=== PATIENT | female | born 1955 | race Caucasian/White ===

== ENCOUNTER → 2018-09-02 | Outpatient (CLI) | payer MEDICARE, MEDICAID, SELFPAY ==
[2017-02-25 20:56] VITALS: BMI 34.9
== END | disposition home or self-care (01) ==
LOC: LABSPEC 16:49
PROVIDERS: Family Provider Internal Medicine; PCP Internal Medicine
DX: R82.998 Other abnormal findings in urine (principal)
CPT/HCPCS: 87077; 87086; 87088; 87186

== ENCOUNTER → 2018-11-25 16:46 | Outpatient (CLI) | payer MEDICARE, MEDICAID, SELFPAY | PROVIDERS: Family Provider Internal Medicine; PCP Internal Medicine; Visit Provider Nurse Practitioner Adult Health | DX: R30.0 Dysuria (principal) | CPT/HCPCS: 87086; 87088 ==

== ENCOUNTER → 2018-12-13 13:04 | Outpatient (CLI) | payer MEDICARE, MEDICAID, SELFPAY ==
--- NOTE | 2018-12-13 13:00 | SP.MBSS_ITS ---
PRIMARY / SECONDARY DIAGNOSIS: Dysphagia REFERRING PHYSICIAN: Dr. Robertson CURRENT DIET: Soft chopped textures/thin liquids by straw DENTITION: natural/present MENTAL STATUS: able to sufficiently participate in MBS RESPIRATORY STATUS: oxygenating on room air PREVIOUS MODIFIED BARIUM SWALLOW STUDY: 05/15/2015 Mild oropharyngeal and mild pharyngeal dysphagia; Regular - soft textures/thin liquids, liquids by straw only, swallow 2x for every sip, seated upright in bed and/or chair w/ hips flexed at a 90 degrees for all food/liquid/medication intake REASON FOR REFERRAL: Further assessment of swallow function under fluoroscopy was recommended MEDICAL HISTORY: Cerebral palsy, epilepsy, osteopenia/osteoporosis, gastroesophageal reflux, hiatal hernia, perforated appendix requiring hospitalization, breast cyst, vitamin D deficiency, abnormal gait, hx pneumonia, hx silent aspiration. STUDY FINDINGS Patient participated in a Modified Barium Swallow (MBS) study on 12/10/2018. Dr. Camarillo was the radiologist present for this evaluation. This study was recorded in the lateral view and images were sent to PACs for storage. The following consistencies were presented to this patient for analysis of oropharyngeal swallow function: thin liquid, nectar thickened liquid, honey thickened liquid, pudding and a regular texture cookie. Results of the MBS are as follows: PENETRATION / ASPIRATION SCALE (CUBA): 1 = does not enter airway 2 = enters airway/above vocal folds/ejected 3 = enters airway/above vocal folds/not ejected 4 = enters airway/contacts vocal folds/ejected 5 = enters airway/contacts vocal folds/not ejected 6 = enters airway/below vocal folds/ejected 7 = enters airway/below vocal folds/not ejected despite effort 8 = enters airway/below vocal folds/no effort PENETRATION / ASPIRATION SCALE (SCORE): 1. Thin liquid, straw (large volume): 1 2. Thin liquid, straw (large volume): 2 3. Thin liquid, small sip by straw: 1 4. Puddin 5. Cookie: 1 6. Thin liquid, straw (large volume): [address] [place] thickened liquid, straw (large volume): 1 8. Thin liquid, small sip by cup: 1 IMPRESSION ORAL PHASE CHARACTERIZED BY: LABIAL SEAL: interlabial escape, no progression to anterior lip TONGUE CONTROL DURING BOLUS MANIPULATION: posterior escape of less than half of bolus BOLUS PREPARATION / MASTICATION: slow prolonged and disorganized chewing/mashing with complete recollection BOLUS TRANSPORT / LINGUAL MOTION: brisk tongue motion ORAL RESIDUE: residue collection on oral structures; cleared independently w/ second swallow PHARYNGEAL PHASE CHARACTERIZED BY: INITIATION OF PHARYNGEAL SWALLOW: bolus head at posterior laryngeal surface of epiglottis at first hyoid excursion SOFT PALATE ELEVATION: no bolus between soft palate and pharyngeal wall LARYNGEAL ELEVATION: partial superior movement of thyroid cartilage/partial approximation of arytenoids cartilage to epiglottic petiole ANTERIOR HYOID EXCURSION: partial anterior movement EPIGLOTTIC MOVEMENT: partial epiglottic inversion LARYNGEAL VESTIBULE CLOSURE AT HEIGHT OF SWALLOW: complete laryngeal vestibule closure with no air/contrast in laryngeal vestibule PHARYNGEAL STRIPPING WAVE: pharyngeal stripping wave present / complete PHARYNGOESOPHAGEAL SEGMENT OPENING: complete distension and complete duration with no obstruction of flow TONGUE BASE RETRACTION: trace column of contrast between tongue base and posterior pharyngeal wall PHARYNGEAL RESIDUE: trace residue within or on pharyngeal structures ESOPHAGEAL PHASE CHARACTERIZED BY: ? ESOPHAGEAL BOLUS CLEARANCE IN THE UPRIGHT POSITION: esophageal retention EFFECTS OF TREATMENT STRATEGIES ATTEMPTED LIQUIDS BY STRAW: effective REDUCED LIQUID BOLUS VOLUME: effective INTERPRETATION OF RESULTS Patient presents with mild to moderate oral and oropharyngeal dysphagia (R13.11, R13.12) secondary to cerebral palsy. Intake complicated by involuntary muscle movements. Oral phase marked by disorganized and prolonged mastication of solids. Mild oral residue retention post deglutition. Independently cleared residue sufficiently w/ a spontaneously initiated additional swallow. Oral discoordination noted w/ premature pharyngeal bolus entry of liquids. Pharyngeal phase marked by suboptimal bolus location upon swallow onset w/ liquids contributing to laryngeal vestibule penetration before/during the swallow, above the vocal folds w/ complete ejection w/ swallow completion. Penetration ameliorated with bolus volume adjustments small sips by cup/straw. Mild reduction in anterior hyoid movement resulting in insufficient epiglottic inversion w/ trace contrast retention post deglutition. Esophageal phase marked by trace contrast retention below the PES. RECOMMENDATIONS DIET TEXTURE RECOMMENDED: regular soft textures/thin liquids?w/ avoidance of mixed consistencies (soup/cereal) and solid textures that release liquids (moist, juicy fruit - watermelon, oranges) COMPENSATORY STRATEGIES RECOMMENDED: all liquids by straw; small sips; follow solids w/ liquid wash as needed; small bites/cut solids into bite sized pieces as needed; seated upright at 90 degrees for all meals, medications and liquid intake; use wedge pillow/pillows to position upright during intake; remain upright for 30-60 minutes after intake (GERD precautions); medications crushed with applesauce NEED FOR ADDITIONAL DYSPHAGIA INTERVENTION: No further skilled speech-language intervention warranted as swallow function is essentially unchanged since prior MBS in 2016 w/ patient and caregiver demonstrating sufficient comprehension of all recommendations and compensatory strategies recommended. ADDITIONAL COMMENTS/RECOMMENDATIONS: Results and recommendations were discussed with the Patient & caregiver immediately following MBS completion w/ both verbalizing understanding and agreement with all recommendations and education provided. IMAGE COUNT: [id number]? Anusha Anguiano M.A., [facility] [employer] CUT OFF OPERATOR Speech Language Pathologist [facility] [address] [place] [address] [email or web address] [phone]
--- NOTE | 2018-12-13 13:10 | RAD_ITS ---
STUDY: SWALLOWING STUDY REASON FOR EXAM: Female, 63 years old. Dysphagia. TECHNIQUE: The examination was performed with Speech Pathology in attendance. Under fluoroscopic observation, the patient ingested thin barium, thick barium, barium pudding, and barium coated cracker. FLUOROSCOPY TIME: 1:46 minutes/seconds. 1661 fluoroscopic images were obtained. RADIOLOGIST INVOLVEMENT: Radiologist was present and providing direct supervision. COMPARISON: Comparison is made with prior study dated May 15, 2015. FINDINGS: The following was observed during swallowing of the various mixtures of barium: Thin Barium: There was no evidence of aspiration or laryngeal penetration. Thick Barium: There was no evidence of aspiration or laryngeal penetration. Barium Pudding: There was no evidence of aspiration or laryngeal penetration. Barium Coated Cracker: There was no evidence of aspiration or laryngeal penetration. RAD/Swallowing Function w/Video IMPRESSION: Normal tailored barium swallow study. No evidence of increased risk for aspiration. The swallow study findings were discussed with the patient by the speech pathologist at the conclusion of the examination. Please see speech pathology report for more information and recommendations. The procedure was performed by under the direct supervision of Electronically Signed: Reilly Camarillo, at 14:03 EST , Service support ,
== END ==
PROVIDERS: Family Provider Internal Medicine; PCP Internal Medicine; Referring Provider Internal Medicine; Visit Provider Internal Medicine
DX: R13.10 Dysphagia, unspecified (principal)
CPT/HCPCS: 74230; 92611

== ENCOUNTER → 2019-08-01 | Outpatient (CLI) | payer MEDICARE, MEDICAID, SELFPAY ==
[2019-08-01 08:25] LABS: Hematocrit 35.5 % (37-47); Hemoglobin 11.6 g/dL (12.0-15.0); Mean Corp Hgb Conc 32.7 g/dL (32-36); Mean Corpuscular Hgb 29.3 pg (27.0-32.0); Mean Corpuscular Volume 89.6 fL (81-99); Mean Platelet Vol. 11.2 fl (6.2-12.0); Platelet Count 247 K/mm3 (150-450); RBC Distribution Width CV 14.1 % (11.6-14.6); Red Blood Count 3.96 M/mm3 (4.2-5.4); White Blood Count 7.2 K/mm3 (4.4-11.0)
[2019-08-01 08:37] LABS: ALB/GLOB Ratio 0.9 RATIO (0.9-2.4); AST(SGOT) 12 U/L (15-37); Alanine Aminotransfer ALT/SGPT 18 U/L (13-56); Albumin, Serum 2.8 g/dL (3.2-5.0); Alkaline Phosphatase 87 U/L (45-117); Anion Gap 4 (5-15); BUN 23 mg/dL (7-18); BUN/Creat Ratio 40.1 RATIO (10-20); Calcium,Total 8.5 mg/dL (8.5-10.1); Chloride 109 mmol/L (98-107); Creatinine, Serum 0.57 mg/dL (0.55-1.02); EST Glomerular Filtration Rate 112 mL/min (>60); Est Glom Filt Rate - Afr Amer 135 mL/min (>60); Globulin 3.2 g/dL (2.2-4.2); Glucose 83 mg/dL (74-106); Sodium Level 143 mmol/L (136-145)
[2019-08-01 08:52] LABS: Vitamin D,25 Hydroxy 60.2 ng/mL
[2019-08-03 20:44] LABS: KEPPRA (LEVETIRACETAM) 12.9 ug/mL (10.0-40.0)
[2019-08-05 14:29] LABS: Thyroid Stim Hormone (TSH) 0.78 uIU/mL (0.358-3.74)
[2019-08-11 04:31] LABS: Rapid Plasmin Reagin (RPR) NONREACTIVE (NONREACTIVE)
== END | disposition home or self-care (01) ==
PROVIDERS: PCP Internal Medicine; Referring Provider Internal Medicine; Visit Provider Internal Medicine
DX: E78.5 Hyperlipidemia, unspecified (principal); Z79.899 Other long term (current) drug therapy
CPT/HCPCS: 80053; 80177; 82306; 84443; 85027; 86592

== ENCOUNTER 2019-09-28 12:18 | Emergency (ER) | payer MEDICARE, MEDICAID, SELFPAY ==
[2019-09-28 12:19] VITALS: BP 132/73; PULSE 78; RESP 18; TEMP 36.6; O2SAT 95; BMI 29.9
[2019-09-28 12:30] VITALS: BMI 33.5
--- NOTE | 2019-09-28 12:44 | ED.VISSUMM ---
- ER Visit Summary Date of Service: 09/28/19 Chief Complaint: Left leg redness and swelling History of Present Illness: The patient is a 64 F who presents with redness and swelling to her left foot and ankle that has been getting worse over the past few days. Patient had an outpatient x-ray done at her residential which did not show any acute fracture. Staff from the residential states the patient will not bear any weight on her left leg. Patient states her pain is constant. Patient states nothing makes it better. Patient denies any fevers or chills. Patient denies any nausea or vomiting. Physical Examination: Vital signs are stable. Patient is afebrile. Patient is in no acute distress. Oral mucosa is pink moist. Neck is supple. Trachea is midline. There is no JVD. Musculoskeletal exam reveals no erythema or warmth over the left lower leg, ankle, and foot.. The erythema seems to extend to the lateral aspect of the knee area. There is no abscess. There is no discharge or drainage. There are no ulcerations. Test Results: CBC and basic metabolic profile were within normal limits. Emergency Department Course and Treatment: Patient was given a dose of Ancef here. She was given a prescription for Keflex. Patient was instructed to keep the leg elevated. Patient was instructed to follow-up with her primary care physician in 5 to 7 days. Patient understood and was agreeable with the plan. All questions were answered. Disposition: Discharge home Impression: Cellulitis left leg This note was generated with [employer] dictation software. It may contain incorrect words, spelling, and punctuation that were not noted in review of the chart prior to signing ED Disposition - Plan for ED Patient: Disposition: Home or Assisted Living Diagnosis: Cellulitis of left lower leg Instructions: ED Cellulitis Prescriptions: Cephalexin [Keflex] 500 mg PO Q6 #40 cap Prescription Printed Referrals: Griselda Robertson MD [Primary Care Provider] - 5-7 Days
[2019-09-28 13:11] LABS: Absolute Lymphocyte Count 1.38 X10^3/uL (0.83-4.51); Absolute Neutrophil Count 3.1 X10^3/uL (2.0-7.7); Basophil# 0.06 X10^3/uL; Basophil% 1.1 % (0-1); Eosinophil# 0.34 X10^3/uL; Eosinophils% 6.2 % (0-5); Hematocrit 38.4 % (37-47); Hemoglobin 12.3 g/dL (12.0-15.0); Lymphocyte # 1.38 X10^3/ul (4.0); Lymphocyte % 25.3 % (19-41); Mean Corpuscular Hgb 28.4 pg (27.0-32.0); Mean Corpuscular Volume 88.7 fL (81-99); Mean Platelet Vol. 11.3 fl (6.2-12.0); Monocyte# 0.58 X10^3/uL; Monocyte% 10.6 % (0-10); NRBC Flagged by Analyzer 0 % (0-5); Neutrophil # 3.08 X10^3/uL (2.7-7.7); Neutrophil % 56.6 % (47-70); Platelet Count 234 K/mm3 (150-450); RBC Distribution Width CV 13.3 % (11.6-14.6); Red Blood Count 4.33 M/mm3 (4.2-5.4); White Blood Count 5.5 K/mm3 (4.4-11.0)
[2019-09-28] MEDS: Cefazolin 1 GM/50 ML BAG IV (13:31)
[2019-09-28 13:32] LABS: Anion Gap 5 (5-15); BUN 14 mg/dL (7-18); BUN/Creat Ratio 21.5 RATIO (10-20); Calcium,Total 9.1 mg/dL (8.5-10.1); Chloride 106 mmol/L (98-107); Creatinine, Serum 0.65 mg/dL (0.55-1.02); EST Glomerular Filtration Rate 97 mL/min (>60); Est Glom Filt Rate - Afr Amer 117 mL/min (>60); Estimated Creatinine Clearance 53.81 ml/min; Glucose 101 mg/dL (74-106); Potassium 3.8 mmol/L (3.5-5.1); Sodium Level 141 mmol/L (136-145)
[2019-09-28 14:45] VITALS: RESP 16
[2019-09-28 16:51] VITALS: BP 128/74; PULSE 67; RESP 18; O2SAT 99
== END 2019-09-28 16:53 | disposition home or self-care (01) ==
PROVIDERS: Emergency Provider Emergency Medicine; PCP Internal Medicine
DX: L03.116 Cellulitis of left lower limb (principal); E66.9 Obesity, unspecified
CPT/HCPCS: 80048; 85025; 87040; 96365; 99284; J7050; A4216

== ENCOUNTER 2019-10-18 15:15 | Emergency (ER) | payer MEDICARE, MEDICAID, SELFPAY ==
[2019-10-18 15:16] VITALS: BP 137/79; PULSE 78; RESP 16; TEMP 36.6; O2SAT 97; BMI 34.3
--- NOTE | 2019-10-18 15:40 | RAD_ITS ---
STUDY: X-RAY - LEFT FOOT CLINICAL: Female, 64 years old. CELLULITIS OF THE LEFT FOOT. NO PAIN. PATIENT COULD NOT HOLD POSITIONS WELL FOR X-RAY. TECHNIQUE: 3 view(s) of the foot. COMPARISON: None. FINDINGS: Normal talus, calcaneus, and tarsal bones. Normal visualized subtalar, talonavicular, calcaneocuboid, tarsal and tarsometatarsal articulations. Normal metatarsi. Normal metatarsophalangeal joint of the great toe. Normal tibial and fibular sesamoid bones. Normal interphalangeal joint of the great toe. Normal phalanges of the great toe. Normal second through fifth metatarsophalangeal joints. Normal interphalangeal joints and phalanges of the lesser toes. There is non-specific soft tissue swelling of the foot. There is no demonstrated fracture. RAD/Foot min 3 Views IMPRESSION: No definite acute or significant abnormality seen. Electronically Signed: Bry Whitman MD at 16:26 EDT , Service support ,
--- NOTE | 2019-10-18 15:41 | VDLE_ITS ---
Reason For Study: Pain Procedure LEFT Exam performed portable in ED. GSV is normal. A preliminary report was called and/or faxed CFV is compressible, spontaneous, phasic, to [place]. competent, and demonstrates normal augmentation. FV is compressible, spontaneous, phasic, competent and demonstrates normal augmentation. POP V is compressible, spontaneous, phasic, competent and demonstrates normal augmentation. T/P Trunk is compressible. PTV is compressible. LT PerV is compressible. Interpretation Summary There is no evidence of left lower extremity deep vein thrombosis. Left great saphenous vein appears patent and compressible segmentally. Ordering Physician: Kassy Barros Referring Physician: Griselda Robertson M.D. Performed By: Lydia Fregoso RVT
[2019-10-18 16:14] VITALS: RESP 16
--- NOTE | 2019-10-18 16:35 | ED.DCSUM_ITS ---
- ER Visit Summary Date of Service: 10/18/19 Chief Complaint: Left foot pain History of Present Illness: The patient is a 64 F presenting with left foot pain. Patient was complaining of left foot pain this morning. She was given Tylenol. She was treated approximately 1 month ago for cellulitis. She fini shed a course of antibiotics. She went to urgent care yesterday for similar complaints. She denies injury. Denies other complaints. Physical Examination: Vitals are stable. Patient is afebrile. Alert no acute distress. HEENT exam is unremarkable. Neck is supple. Lungs are clear and equal bilaterally. Heart is regular rate and rhythm. Abdomen is soft nontender nondistended. Extremities left foot nontender. No erythema or warmth. Normal pulses. No calf tenderness. Skin is warm and dry. Remainder of exam is unremarkable. Emergency Department Course and Treatment: Lower extremity venous Doppler shows There is no evidence of left lower extremity deep vein thrombosis. Left great saphenous vein appears patent and compressible segmentally. Left foot xray shows no definite acute or significant abnormality seen. Patient's pain was improved after being given Tylenol at home. She has no signs of infection at this time. Advised to follow-up with her primary care physician. Advised return to ED for worsening complaints. Disposition: Discharge home Impression: Left foot pain This note was generated with [employer] dictation software. It may contain incorrect words, spelling, and punctuation that were not noted in review of the chart prior to signing ED Disposition - Plan for ED Patient: Referrals: Griselda Robertson MD [Primary Care Provider] -
--- NOTE | 2019-10-18 16:49 | ED.DEP ---
ED Disposition - Plan for ED Patient: Instructions: ED Sprain Foot Referrals: Griselda Robertson MD [Primary Care Provider] -
[2019-10-18 16:57] VITALS: PULSE 71; RESP 14; O2SAT 96
== END 2019-10-18 17:01 | disposition skilled nursing facility (03) ==
PROVIDERS: Emergency Provider Emergency Medicine; PCP Internal Medicine
DX: M79.672 Pain in left foot (principal); K21.9 Gastro-esophageal reflux disease without esophagitis; G40.909 Epilepsy, unspecified, not intractable, without status epilepticus; G80.9 Cerebral palsy, unspecified; Z79.899 Other long term (current) drug therapy
CPT/HCPCS: 73630; 93971; 99282

== ENCOUNTER 2020-04-12 20:48 | Emergency (ER) | payer MEDICARE, MEDICAID, SELFPAY ==
[2020-04-12 20:49] VITALS: BP 146/93; PULSE 90; RESP 18; TEMP 36.8; O2SAT 97; BMI 34.4
--- NOTE | 2020-04-12 20:52 | ED.VIS.FALL ---
History of Present Illness Chief Complaint: Fall Informant: Patient, - - snf aide; did not witness fall however Occurred: Today - JPTA Mechanism/Context: Same level fall - out of wheelchair Usually ambulates: Non-Ambulatory - uses wheelchair and transitions to and from w/o assistance Location: R hip Quality of Pain: Aching Current Severity: Moderate Maximum Severity: Moderate Worsened by: palpation Relieved by: leaving alone/rest Associated Symptoms: Negative for: Parasthesias, Weakness, Loss of function, Loss of consciousness, Amnesia Narrative: Patient is a resident of a snf with cerebral palsy, she is wheelchair-bound but can transition. She was trying to get out of her wheelchair to go to the bathroom tonight, she thought it was locked but the wheelchair inadvertently came unlocked, and it rolled causing her to fall to the floor versus right hip. She denies pain or injury anywhere else. - Past Medical History (1) Cerebral palsy Status: Chronic (2) GERD (gastroesophageal reflux disease) Status: Chronic (3) Seizure disorder Status: Chronic Past Medical History - Allergies and Home Meds Allergies/Adverse Reactions: Allergies doxycycline Allergy (Verified 04/12/20 20:53) [facility] Primary Care Physician: Griselda Robertson MD [Primary Care Provider] - 1 Week if not improving Lives: - - retirement Smoking Status: Never smoker Review of Systems Cardiovascular: Denies: Chest pain Gastrointestinal: Denies: Abdominal pain, Nausea Musculoskeletal: Reports: Extremity Pain. Denies: Neck pain, Back pain Skin: Denies: Rash, Wounds Neurological: Denies: Headache Physical Exam Inital Vital Signs reviewed: Yes General: Well nourished, Well developed, - - Keenly alert, at baseline per aide Head: Normocephalic, Atraumatic Extremeties: Tender to palpation right greater trochanter. Full range of motion right hip without any groin pain or increased greater trochanter pain. No other tenderness to the extremities. No deformities. Skin: Normal color, No rash, No Trauma Neurological: Alert, Oriented x3, Cranial nerves II-XII grossly intact Psychological: Normal affect, Normal Mood Diagnostic/Tx/Re-eval Clinical Impression(s) from Imaging Studies Hip/Pelvis X-Ray 04/12/20 21:13 IMPRESSION: Within normal limits x-ray examination of the pelvis and hip. Electronically Signed: Ruth Negrete MD at 21:29 EST Tel , Service support , - Medical Decision Making On my interpretation 3 view x-ray series of the right hip including the pelvis are negative for any acute fractures. Patient is mobile with regards to her right hip without any joint pain. I am at a very low suspicion of an occult hip fracture given her excellent range of motion. Given Tylenol which helped her pain, discharged with appropriate instructions. Discharge, she was able to transition with assistance to wheelchair without significant pain or difficulty, and then used her R leg to help kick the door to the room open for the RN as she was wheeling her out. ED Disposition - Plan for ED Patient: Disposition: Home or Assisted Living Diagnosis: Accidental fall from wheelchair, Contusion of right hip Instructions: ED Hip Contusion Referrals: Griselda Robertson MD [Primary Care Provider] - 1 Week if not improving Additional Instructions: Tylenol as needed for pain, 650 mg every 4 hour as needed
[2020-04-12] MEDS: Acetaminophen 500 MG Tablet 1000 MG PO (21:01)
--- NOTE | 2020-04-12 21:13 | RAD_ITS ---
STUDY: X-RAY - PELVIS AND RIGHT HIP REASON FOR EXAM: Female, 64 years old. Injury/fall TECHNIQUE: 3 views of the pelvis and hip. COMPARISON: None. FINDINGS: There is a non-specific bowel gas pattern. Normal visualized soft tissue structures. Normal bilateral iliac wings, sacroiliac joints and visualized sacrum. Normal bilateral superior and inferior pubic rami. Normal pubic symphysis. Normal bilateral ischial tuberosities. Normal visualized femoral head. Normal acetabulum. Normal hip joint. RAD/HIP, UNI W/ Pelvis 2-3 Views IMPRESSION: Within normal limits x-ray examination of the pelvis and hip. Electronically Signed: Ruth Negrete MD at 21:29 EST Tel , Service support ,
== END 2020-04-12 21:50 | disposition home or self-care (01) ==
PROVIDERS: Emergency Provider Emergency Medicine; PCP Internal Medicine
DX: S70.01XA Contusion of right hip, initial encounter (principal); W05.0XXA Fall from non-moving wheelchair, initial encounter; Y93.9 Activity, unspecified; Y92.9 Unspecified place or not applicable; Z99.3 Dependence on wheelchair; K21.9 Gastro-esophageal reflux disease without esophagitis; G80.9 Cerebral palsy, unspecified; G40.909 Epilepsy, unspecified, not intractable, without status epilepticus; Z79.899 Other long term (current) drug therapy
CPT/HCPCS: 73502; 99284

== ENCOUNTER 2021-01-22 11:38 | Emergency (ER) | payer MEDICARE, MEDICAID, SELFPAY ==
[2021-01-22 11:39] VITALS: BP 119/86; PULSE 96; RESP 16; TEMP 37.3; O2SAT 91; BMI 27.3
[2021-01-22 12:11] VITALS: BP 119/86; PULSE 88; RESP 26; TEMP 37.3; O2SAT 93
--- NOTE | 2021-01-22 12:33 | EX.ED.DYSGE1 ---
HPI History of Present Illness Chief Complaint: Cough Informant: patient and other Onset/Context/Timing Onset: Yesterday Context: Gradual Onset Timing: Intermittent Current Severity: Mild Maximum Severity: Mild Narrative Narrative: 65-year-old female lives in the area nursing home. She is unvaccinated for Covid. Today she developed a fever of 101.8. She has had some intermittent diarrhea last several days. Last night she choked while eating they were concerned she may have aspirated. No known exposure to Covid nor is anyone else currently ill at the nursing home. She also attends a workshop. There is been no vomiting. No dysuria. Prior similar symptoms: Yes Recent Illness/Hospitalization: No [facility] Medical History Cerebral palsy Epilepsy Hiatal hernia Hirsutism Idiopathic mild intellectual disability Leukopenia Seizure Thrombocytopenia Home Medications alendronate-vitamin D3 [Fosamax Plus D 70 mg-2,800 Iu] 1 ea PO Q7D 12/17/14 [History Last Taken Unknown] baclofen 20 mg PO TID 12/17/14 [History Last Taken Unknown] carbamide peroxide [Ear Drops] 15 ml OT QWEEK 12/17/14 [History Last Taken Unknown] chlorhexidine gluconate [Peridex] 15 ml MM BID 12/17/14 [History Last Taken Unknown] cholecalciferol (vitamin D3) [Vitamin D] 2,000 unit PO DAILY 12/17/14 [History Last Taken Unknown] omeprazole [Prilosec] 20 mg PO BID 12/17/14 [History Last Taken Unknown] calcium carbonate-vitamin D3 [Oyster Shell 250 mg + Vit D Tb] 1 ea PO DAILY 10/13/16 [History Last Taken Unknown] levetiracetam 500 mg PO BID 09/28/19 [History Last Taken Unknown] tolterodine 2 mg PO DAILY 09/28/19 [History Last Taken Unknown] Prednisone 10 mg PO DAILY 04/12/20 [History Last Taken Unknown] Triamcinolone 0.1% Cream [Kenalog] 1 applic TOPICAL BID 04/12/20 [History Last Taken Unknown] doxycycline monohydrate 100 mg PO BID 04/12/20 [History Last Taken Unknown] triamterene-hydrochlorothiazid 1 tab PO DAILY 04/12/20 [History Last Taken Unknown] trihexyphenidyl 4 mg PO TID 04/12/20 [History Last Taken Unknown] ondansetron 4 mg PO Q6H PRN #7 tab 01/22/21 [Rx Last Taken Unknown] sertraline 25 mg PO DAILY 01/22/21 [History Last Taken Unknown] Allergy/AdvReac Type Severity Reaction Status Date / Time doxycycline Allergy Hives Verified 01/22/21 11:39 Social History Smoking Status: Never smoker ROS ROS ED ROS Narrative Fever. Cough. Diarrhea. Review of Systems ROS Unobtainable: Denies due to encephalopathy Constitutional Constitutional ED: Reports fever(s) Eyes Eyes: Denies change in vision Cardiovascular Cardiovascular: Denies chest pain or palpitations Respiratory/Chest Respiratory/Chest: Reports cough Gastrointestinal Gastrointestinal: Reports diarrhea; Denies abdominal pain, nausea or vomiting Genitourinary Genitourinary ED: Denies dysuria Musculoskeletal Musculoskeletal: Denies myalgias Integumentary Denies rash Neurologic Neurologic: Denies headache(s) Psychiatric Psychiatric: Denies depression Endocrine Endocrinology: Denies polyuria Allergic/Immunologic Allergic/Immunologic ED: Denies urticaria EXAM Physical Exam Narrative Exam Narrative: 65-year-old female no acute distress lying in bed. Staff member of the nursing home is present at bedside. Vital signs are stable afebrile. Pulse ox 91% on room air no hypoxia. HEENT exam unremarkable. Moist remembers. Neck nontender no lymphadenopathy. Lungs clear to auscultation bilaterally. Heart regular rhythm no murmur rate about 90. Abdomen soft nontender normal bowel sounds no peritoneal signs. Moving all 4 extremities. Calves nontender no edema. Neurologically she is awake and alert. She does have contractures in both upper extremities which is chronic. Const Vital Signs: 01/22/21 11:39 01/22/21 12:05 01/22/21 12:11 Temperature 99.2 F H 99.2 F H Temperature Source Temporal Temporal Pulse Rate 96 88 Respiratory Rate 16 26 H Respiratory Effort Normal Non-Labored Respiratory Pattern Normal Blood Pressure 119/86 H 119/86 H Blood Pressure Mean 97 97 Pulse Ox 91 93 Oxygen Delivery Method Room Air Room Air Positive well nourished, well developed and obese; Negative for cachectic, contractures or unkempt General Appearance ED: well developed and NAD; Negative for unkempt, cachectic or contractures Nutritional Appearance: obese; Negative for cachectic HEENT Reports moist mucous membranes Negative for trauma or tenderness Eyes PERRL and EOMs intact bilaterally Neck no lymphadenopathy, supple and no JVD General: Negative for tenderness Chest Wall inspection of chest normal and palpation of chest normal Resp normal respiratory effort and clear to auscultation bilaterally Effort and Inspection: Negative for pain with movement Auscultation: Negative for rales, rhonchi or wheezes Cardio regular rate, regular rhythm, S1 normal heart sound, S2 normal heart sound and no murmurs GI normal to inspection, nondistended, normoactive bowel sounds, non-tender, non-distended and no masses Auscultation: normoactive bowel sounds Palpation: soft; Negative for tender, guarding or rebound tenderness present Back/Spine no CVA tenderness General Back: Negative for CVA tenderness Extremity normal to inspection General Extremety ED: Negative for edema or tenderness General Extremity: Negative for edema Neuro Sensorium / Orientation: alert Psych mental status grossly normal Appearance: Negative for unkempt Mood & Affect: Negative for depressed Skin no rashes or lesions noted and no wounds MDM MDM MDM Narrative Medical decision making narrative: 65-year-old with diarrhea off and fever today. He is a puckett for Covid versus argument etiologies of fever. Treated with IV fluids. Repeat exam patient is doing well at 2:03 PM. Abdomen is benign. She has no pain. She has had no vomiting since being here. I went over all test results with the patient and the person from the nursing home. She will be discharged home with a Zofran prescription. Lab Data Attestation: I reviewed the patient's lab results. Lab results narrative: CBC shows a white count of 3. Hemoglobin 13.2. Electrolytes show a gap of 5 normal BUN and creatinine is 0.6. Liver enzymes unremarkable. Urinalysis shows negative nitrites, no white cells and rare bacteria. No signs of infection. Labs: Laboratory Results - last 24 hr 01/22/21 01/22/21 01/22/21 12:05 12:22 12:22 WBC 3.3 L RBC 4.58 Hgb 13.2 Hct 40.1 MCV 87.6 MCH 28.8 MCHC 32.9 RDW Std Deviation 43.0 RDW Coeff of Chel 13.2 Plt Count 241 MPV 10.8 Immature Gran % (Auto) 0.000 Neut % (Auto) 65.4 Lymph % (Auto) 15.3 L [place] % (Auto) 18.4 H Eos % (Auto) 0.0 Baso % (Auto) 0.9 Absolute Neuts (auto) 2.1 Absolute Lymphs (auto) 0.50 L Nucleated RBC % 0 Differential Comment SCANNED Diff Path Review June foll Sodium 137 Potassium 4.0 Chloride 103 Carbon Dioxide 29.0 Anion Gap 5 BUN 13 Creatinine 0.63 Estim Creat Clear Calc 55.07 Est GFR (MDRD) Af Amer 122 Est GFR (MDRD) Non-Af 101 BUN/Creatinine Ratio 20.8 H Glucose 102 Calcium 9.1 Total Bilirubin 0.30 AST 22 ALT 26 Alkaline Phosphatase 114 Total Protein 7.2 Albumin 3.4 Globulin 3.8 Albumin/Globulin Ratio 0.9 Urine Color Yellow Urine Clarity Clear Urine pH 8.0 Ur Specific [place] 1.015 Urine Protein Negative Urine Glucose (UA) Normal Urine Ketones 15 H Urine Occult Blood 25 H Urine Nitrite Negative Urine Bilirubin Negative Urine Urobilinogen Normal Ur Leukocyte Esterase Negative Urine RBC 5-10 SEEN Urine WBC 0 SEEN Ur Squamous Epith Cells 10-25 SEEN Urine Bacteria RARE Urine Mucus 0 SEEN Radiography Chest X-Ray - ED: 1 View, Read by ED Physician, Heart, Lungs, Mediastinum, Bony Structures, No Acute Disease and Chronic Changes Diagnostic Testing: Chest x-ray, portable, single view interpreted by myself shows no acute abnormality. Discharge Plan Triage Chief Complaint: Cough Other Complaint: Fever Headache Nausea/Vomiting ED Provider: Mike Bullock Dx/Rx/DC Orders Clinical Impression: Cerebral palsy, Viral gastroenteritis Instructions: ED Gastroenteritis, Viral (Adult) Prescriptions: New ondansetron 4 mg tablet,disintegrating 4 mg PO Q6H PRN (Reason: nausea and vomiting) Qty: 7 RF: 0 No Action baclofen 10 MG tablet 20 mg PO TID RF: 0 omeprazole [Prilosec] 40 MG capsule,delayed release(DR/EC) 20 mg PO BID RF: 0 carbamide peroxide [Ear Drops (carbamide peroxide)] 15 ML drops 15 ml OT QWEEK RF: 0 Fosamax Plus D 1 EACH tablet 1 ea PO Q7D RF: 0 chlorhexidine gluconate [Peridex] 15 ML mouthwash 15 ml MM BID RF: 0 cholecalciferol (vitamin D3) [Vitamin D3] 1,000 UNIT tablet 2,000 unit PO DAILY RF: 0 calcium carbonate-vitamin D3 [Oyster Shell Calcium-Vit D3] 1 EACH tablet 1 ea PO DAILY RF: 0 levetiracetam 500 MG tablet 500 mg PO BID RF: 0 tolterodine 2 MG tablet 2 mg PO DAILY RF: 0 doxycycline monohydrate 100 MG capsule 100 mg PO BID RF: 0 triamterene-hydrochlorothiazid 1 EACH tablet 1 tab PO DAILY RF: 0 trihexyphenidyl 2 MG tablet 4 mg PO TID RF: 0 Prednisone 10 MG tablet 10 mg PO DAILY RF: 0 Triamcinolone 0.1% Cream [Kenalog] 1 APPLIC Tube 1 applic TOPICAL BID RF: 0 sertraline 25 mg Tablet 25 mg PO DAILY RF: 0 Primary Care Provider: Griselda Robertson Referrals: Griselda Robertson MD [Primary Care Provider] - 3-5 Days if not improving Activity Restrictions/Additional Instructions: Plenty was and rest. Slowly increase diet as tolerated. Zofran as needed for nausea if too nauseated to swallow let it dissolve underneath her tongue. Otherwise she can swallow. Follow-up with her doctor if not improving. Return emergency department if unable to keep fluids down or feeling worse. Her labs and chest x-ray today were unremarkable. Clinically this appears to be a viral gastroenteritis. Disposition Disposition: Home, Self Care
[2021-01-22 12:39] LABS: Absolute Neutrophil Count 2.1 X10^3/uL (2.0-7.7); Basophil# 0.03 X10^3/uL; Basophil% 0.9 % (0-1); Hematocrit 40.1 % (37-47); Hemoglobin 13.2 g/dL (12.0-15.0); Lymphocyte % 15.3 % (19-41); Mean Corp Hgb Conc 32.9 g/dL (32-36); Mean Corpuscular Hgb 28.8 pg (27.0-32.0); Mean Corpuscular Volume 87.6 fL (81-99); Mean Platelet Vol. 10.8 fl (6.2-12.0); Monocyte% 18.4 % (0-10); NRBC Flagged by Analyzer 0 % (0-5); Neutrophil # 2.13 X10^3/uL (2.7-7.7); Neutrophil % 65.4 % (47-70); POSITIVE DIFFERENTIAL YES; Platelet Count 241 K/mm3 (150-450); RBC Distribution Width CV 13.2 % (11.6-14.6); Red Blood Count 4.58 M/mm3 (4.2-5.4); White Blood Count 3.3 K/mm3 (4.4-11.0)
[2021-01-22 12:44] LABS: Differential Indicated SCAN CRITERIA MET
--- NOTE | 2021-01-22 12:45 | RAD_ITS ---
STUDY: X-RAY CHEST REASON FOR EXAM: Female, 65 years old. Choking episode at [facility] last night, fever today, headache TECHNIQUE: Single AP portable view of the chest. COMPARISON: Comparison is made with prior examination dated 12/20/2014. FINDINGS: EKG electrodes are seen. Mild degree of facet congestion. There is evidence of bibasilar patchy infiltrates worse at the left lung base. There is no demonstrated pleural abnormality. There is mild cardiac enlargement. Normal mediastinum and ash. Normal visualized pulmonary arteries. There is atherosclerotic calcification of the aortic arch with tortuosity. There are degenerative changes of the visualized thoracic spine. Normal visualized ribs, clavicles, and shoulders. There is no demonstrated abnormality of the visualized soft tissue structures of the upper abdomen. RAD/Chest 1 View (Portable) IMPRESSION: Vascular congestion and a mild degree of CHF with bibasilar infiltrates worse at the left lung base. Electronically Signed: Reilly Camarillo MD at 13:05 EST , Service support ,
[2021-01-22] MEDS: 0.9% Normal Saline 1,000 ML 1000 ML IV (12:52)
[2021-01-22] MEDS: Ondansetron 4 MG/2 ML Vial IV (12:52)
[2021-01-22 13:07] LABS: ALB/GLOB Ratio 0.9 RATIO (0.9-2.4); AST(SGOT) 22 U/L (15-37); Alanine Aminotransfer ALT/SGPT 26 U/L (13-56); Albumin, Serum 3.4 g/dL (3.2-5.0); Alkaline Phosphatase 114 U/L (45-117); Anion Gap 5 (5-15); BUN 13 mg/dL (7-18); BUN/Creat Ratio 20.8 RATIO (10-20); Calcium,Total 9.1 mg/dL (8.5-10.1); Chloride 103 mmol/L (98-107); Creatinine, Serum 0.63 mg/dL (0.55-1.02); EST Glomerular Filtration Rate 101 mL/min (>60); Est Glom Filt Rate - Afr Amer 122 mL/min (>60); Estimated Creatinine Clearance 55.07 ml/min; Globulin 3.8 g/dL (2.2-4.2); Glucose 102 mg/dL (74-106); Protein, Total 7.2 g/dL (6.4-8.2); Sodium Level 137 mmol/L (136-145)
[2021-01-22 13:10] LABS: Mucous, Urine 0 SEEN /hpf (<or=2+)
[2021-01-22 13:12] LABS: Glucose, Dipstick Normal (Normal); Ketone-Dipstick 15 mg/dl (Negative); Leukocyte Esterase-Dipstick Negative /ul (Negative); Nitrite-Dipstick Negative (Negative); Occult Blood-Urine 25 /ul (Negative); Protein-Dipstick Negative (Negative); Specific Gravity, Urine 1.015 (1.002-1.030); Urine Bilirubin Dipstick Negative (Negative); Urine Urobilinogen Normal (Normal)
[2021-01-22 13:16] LABS: Color, Urine Yellow (Yellow); Urine Clarity Clear (Clear)
[2021-01-22 13:19] LABS: White Blood Cells 0 SEEN /hpf (0-5)
[2021-01-22 13:20] LABS: Bacteria RARE /hpf (None Seen); Red Blood Cells-Urine 5-10 SEEN /hpf (0-5); Squamous Epithelial Cells - UA 10-25 SEEN /hpf (5-10)
[2021-01-22 13:35] LABS: Differential Comment SCANNED
[2021-01-22 14:09] VITALS: BP 165/62; PULSE 87; RESP 22; O2SAT 94
[2021-01-23 13:59] LABS: Pathologist Review Reviewed
== END 2021-01-22 14:24 | disposition home or self-care (01) ==
PROVIDERS: Emergency Provider Emergency Medicine; PCP Internal Medicine
DX: A08.4 Viral intestinal infection, unspecified (principal); G80.9 Cerebral palsy, unspecified; G40.909 Epilepsy, unspecified, not intractable, without status epilepticus; M24.50 Contracture, unspecified joint; Z86.2 Personal history of diseases of the blood and blood-forming organs and certain disorders involving the immune mechanism; Z79.899 Other long term (current) drug therapy
CPT/HCPCS: 71045; 80053; 81001; 85025; 87426; 96361; 96374; 99284; J7030; P9612; A4216

== ENCOUNTER 2021-08-26 19:27 | Emergency (ER) | payer MEDICARE, MEDICAID, SELFPAY ==
[2021-08-26 19:28] VITALS: BP 139/95; PULSE 129; RESP 17; TEMP 37.1; O2SAT 93; BMI 32.6
--- NOTE | 2021-08-26 19:44 | EKG12_ITS ---
Test Reason : abd pain Blood Pressure : / mmHG Vent. Rate : 132 BPM Atrial Rate : 132 BPM P-R Int : 136 ms QRS Dur : 078 ms QT Int : 326 ms P-R-T Axes : 000 125 043 degrees QTc Int : 483 ms Sinus tachycardia Left posterior fascicular block POOR R WAVE PROGRESSION Abnormal ECG Confirmed by AIXA CLARK, NAA [id number]), legal editor PRESLEY VANESSA ([id number]) on 08/27/2021 11:30:00 AM Referred By: Confirmed By:NAA KRUSE MD
--- NOTE | 2021-08-26 19:56 | EX.ED.DYSGE1 ---
HPI History of Present Illness Chief Complaint: Nausea/Vomiting/Diarrhea Informant: patient and other (Caregiver) Narrative Narrative: Brought in by caregiver for nausea and vomiting couple hours prior to arrival. She did have a loose stools for 2 days however started on milk of magnesia. History of cerebral palsy wheelchair-bound. No fevers. After emesis symptoms resolved. No current nausea. She is tachycardic at the facility. Reporting by caregiver concerns that there was food in her vomit that was clear from Thursday. She had no recent antibiotics. No fevers. Currently denies any symptoms. [facility] Medical History Cerebral palsy Epilepsy Hiatal hernia Hirsutism Idiopathic mild intellectual disability Leukopenia Seizure Thrombocytopenia Home Medications alendronate 70 mg-cholecalciferol (vitamin D3) 2,800 unit tablet (Fosamax Plus D) 1 ea PO Q7D 12/17/14 [History Last Taken Unknown] baclofen 10 mg tablet 20 mg PO TID 12/17/14 [History Last Taken Unknown] carbamide peroxide 6.5 % ear drops (Ear Drops (carbamide peroxide)) 15 ml OT QWEEK 12/17/14 [History Last Taken Unknown] chlorhexidine gluconate 0.12 % mouthwash (Peridex) 15 ml MM BID 12/17/14 [History Last Taken Unknown] cholecalciferol (vitamin D3) 25 mcg (1,000 unit) tablet (Vitamin D3) 2,000 unit PO DAILY 12/17/14 [History Last Taken Unknown] omeprazole 40 mg capsule,delayed release (Prilosec) 20 mg PO BID 12/17/14 [History Last Taken Unknown] calcium carbonate 250 mg-vitamin D3 3.125 mcg (125 unit) tablet (Oyster Shell Calcium-Vitamin D3) 1 ea PO DAILY 10/13/16 [History Last Taken Unknown] levetiracetam 500 mg tablet 500 mg PO BID 09/28/19 [History Last Taken Unknown] tolterodine 2 mg tablet 2 mg PO DAILY 09/28/19 [History Last Taken Unknown] Triamcinolone 0.1% Cream [Kenalog] 1 applic topical BID 04/12/20 [History Last Taken Unknown] triamterene 37.5 mg-hydrochlorothiazide 25 mg tablet 1 tab PO DAILY 04/12/20 [History Last Taken Unknown] ondansetron 4 mg disintegrating tablet 4 mg PO Q8H PRN nausea and vomiting #7 tabs 01/22/21 [Rx Last Taken Unknown] sertraline 25 mg tablet 25 mg PO DAILY 01/22/21 [History Last Taken Unknown] Allergy/AdvReac Type Severity Reaction Status Date / Time doxycycline Allergy Hives Verified 08/26/21 19:31 Social History Smoking Status: Never smoker ROS ROS ED Constitutional Constitutional ED: Denies chills, fever(s) or sweats Eyes Eyes: Denies change in vision ENT ENT ED: Denies dysphagia or sore throat Cardiovascular Cardiovascular: Denies chest pain, leg edema, palpitations or racing heartbeat Respiratory/Chest Respiratory/Chest: Denies cough, dyspnea or dyspnea on exertion Gastrointestinal Gastrointestinal: Reports diarrhea, nausea and vomiting; Denies abdominal pain Genitourinary Genitourinary ED: Denies dysuria, hematuria or urinary frequency Musculoskeletal Musculoskeletal: Denies back pain, extremity pain or neck pain Integumentary Denies rash or wounds Neurologic Neurologic: Denies headache(s), paresthesias or weakness EXAM Physical Exam Const Vital Signs: 08/26/21 19:28 08/26/21 22:29 Temperature 98.8 F Temperature Source Temporal Pulse Rate 129 H 93 Respiratory Rate 17 16 Blood Pressure 139/95 H 154/94 H Blood Pressure Mean 109 Pulse Ox 93 Oxygen Delivery Method Room Air Positive well nourished and well developed General Appearance ED: well developed and NAD HEENT Reports moist mucous membranes normocephalic and atraumatic Eyes PERRL, EOMs intact bilaterally and conjunctivae normal General Eye ED: Yes normal appearance of both eyes Neck no lymphadenopathy and supple General: Negative for tenderness Chest Wall Chest: Negative for tenderness Resp normal respiratory effort and normal air movement Effort and Inspection: symmetric chest movement; Negative for respiratory distress Cardio regular rhythm and no murmurs Rate: tachycardic Peripheral Pulses: pulses 2+ throughout GI normal to inspection, nondistended, normoactive bowel sounds and non-tender GI Narrative: Negative Anand's or McBurney's tenderness. Palpation: Negative for guarding or rebound tenderness present Back/Spine no CVA tenderness and no thoracic nor lumbar tenderness Extremity Extremity Narrative: Splints of lower extremities. General Extremety ED: Negative for edema or tenderness General Extremity: Negative for edema Neuro oriented x3 and no sensory deficits noted Sensorium / Orientation: awake and alert MDM MDM MDM Narrative Medical decision making narrative: Patient tachycardic with vomiting and diarrhea. EKG is sinus rhythm she is given IV fluids with improvement. Labs electrolytes are stable. Reevaluation symptoms continue to be resolved. Patient was started on milk of magnesia prior diarrhea. Vomiting this evening resolved after supper. She reassured she continue oral fluids for hydration. Return precautions. All questions were answered. Lab Data Attestation: I reviewed the patient's lab results. Labs: Laboratory Results - last 24 hr 08/26/21 08/26/21 19:45 19:45 WBC 10.3 RBC 4.82 Hgb 14.2 Hct 42.6 MCV 88.4 MCH 29.5 MCHC 33.3 RDW Std Deviation 42.5 RDW Coeff of Chel 13.1 Plt Count 291 MPV 10.9 Immature Gran % (Auto) 0.200 Neut % (Auto) 70.0 Lymph % (Auto) 21.1 [place] % (Auto) 6.9 Eos % (Auto) 1.3 Baso % (Auto) 0.5 Absolute Neuts (auto) 7.2 Absolute Lymphs (auto) 2.17 Nucleated RBC % 0 Sodium 140 Potassium 4.1 Chloride 106 Carbon Dioxide 29.0 Anion Gap 5 BUN 16 Creatinine 0.63 Estim Creat Clear Calc 54.32 Est GFR (MDRD) Af Amer 121 Est GFR (MDRD) Non-Af 100 BUN/Creatinine Ratio 25.4 H Glucose 114 H Calcium 9.6 EKG Initial EKG: Attestation: I personally reviewed and interpreted this EKG as follows: Comments: Sinus rate of 132, no ST or T wave changes. Discharge Plan Triage Chief Complaint: Nausea/Vomiting/Diarrhea ED Provider: Nelson Spencer Dx/Rx/DC Orders Clinical Impression: Nausea vomiting and diarrhea, Cerebral palsy Instructions: ED Diet for Vomiting or ... Prescriptions: No Action baclofen 10 MG tablet 20 mg PO TID omeprazole [Prilosec] 40 MG capsule,delayed release(DR/EC) 20 mg PO BID Ear Drops (carbamide peroxide) 15 ML drops 15 ml OT QWEEK Label Comments: 2 DROPS EACH EAR ON THURSDAY AND THURSDAY Fosamax Plus D 1 EACH tablet 1 ea PO Q7D chlorhexidine gluconate [Peridex] 15 ML mouthwash 15 ml MM BID cholecalciferol (vitamin D3) [Vitamin D3] 1,000 UNIT tablet 2,000 unit PO DAILY calcium carbonate-vitamin D3 [Oyster Shell Calcium-Vit D3] 1 EACH tablet 1 ea PO DAILY levetiracetam 500 MG tablet 500 mg PO BID tolterodine 2 MG tablet 2 mg PO DAILY triamterene-hydrochlorothiazid 1 EACH tablet 1 tab PO DAILY Triamcinolone 0.1% Cream [Kenalog] 1 APPLIC Tube 1 applic TOPICAL BID sertraline 25 mg Tablet 25 mg PO DAILY ondansetron 4 mg tablet,disintegrating 4 mg PO Q8H PRN (Reason: nausea and vomiting) Qty: 7 0RF Primary Care Provider: Griselda Robertson Referrals: Griselda Robertson MD [Primary Care Provider] - Activity Restrictions/Additional Instructions: Your labs are stable. Vomiting resolved. Diarrhea likely from your milk of magnesia. Continue oral fluids for hydration. Heart rate improved with IV fluids. Your kidney function is normal. Follow-up with your doctor, return if any worsening symptoms. Disposition Disposition: Home, Self Care Discharge Date/Time: 08/26/21 22:46
[2021-08-26] MEDS: 0.9% Normal Saline 1,000 ML 1000 ML IV (19:58)
[2021-08-26 20:11] LABS: Absolute Lymphocyte Count 2.17 X10^3/uL (0.83-4.51); Absolute Neutrophil Count 7.2 X10^3/uL (2.0-7.7); Basophil# 0.05 X10^3/uL; Basophil% 0.5 % (0-1); Eosinophil# 0.13 X10^3/uL; Eosinophils% 1.3 % (0-5); Hematocrit 42.6 % (37-47); Hemoglobin 14.2 g/dL (12.0-15.0); Lymphocyte # 2.17 X10^3/ul (0.83-4.51); Lymphocyte % 21.1 % (19-41); Mean Corp Hgb Conc 33.3 g/dL (32-36); Mean Corpuscular Hgb 29.5 pg (27.0-32.0); Mean Corpuscular Volume 88.4 fL (81-99); Mean Platelet Vol. 10.9 fl (6.2-12.0); Monocyte# 0.71 X10^3/uL; Monocyte% 6.9 % (0-10); NRBC Flagged by Analyzer 0 % (0-5); Neutrophil # 7.19 X10^3/uL (2.7-7.7); Platelet Count 291 K/mm3 (150-450); RBC Distribution Width CV 13.1 % (11.6-14.6); RBC Distribution Width SD 42.5 fl (35.1-43.9); Red Blood Count 4.82 M/mm3 (4.2-5.4); White Blood Count 10.3 K/mm3 (4.4-11.0)
[2021-08-26 20:31] LABS: Anion Gap 5 (5-15); BUN 16 mg/dL (7-18); BUN/Creat Ratio 25.4 RATIO (10-20); Calcium,Total 9.6 mg/dL (8.5-10.1); Chloride 106 mmol/L (98-107); Creatinine, Serum 0.63 mg/dL (0.55-1.02); EST Glomerular Filtration Rate 100 mL/min (>60); Est Glom Filt Rate - Afr Amer 121 mL/min (>60); Estimated Creatinine Clearance 54.32 ml/min; Glucose 114 mg/dL (74-106); Potassium 4.1 mmol/L (3.5-5.1); Sodium Level 140 mmol/L (136-145)
[2021-08-26 22:29] VITALS: BP 154/94; PULSE 93; RESP 16
== END 2021-08-26 22:46 | disposition home or self-care (01) ==
PROVIDERS: Emergency Provider Emergency Medicine; PCP Internal Medicine; Visit Provider Emergency Medicine
DX: R11.2 Nausea with vomiting, unspecified (principal); G80.9 Cerebral palsy, unspecified; G40.909 Epilepsy, unspecified, not intractable, without status epilepticus; R19.7 Diarrhea, unspecified; Z79.899 Other long term (current) drug therapy; Z99.3 Dependence on wheelchair
CPT/HCPCS: 80048; 85025; 93005; 96360; 96361; 99284; J7030; A4216

== ENCOUNTER 2022-01-04 15:01 | Emergency (ER) | payer MEDICARE, MEDICAID, SELFPAY ==
[2022-01-04 15:03] VITALS: TEMP 37.3; BMI 30.9
[2022-01-04 15:21] VITALS: BP 114/71; PULSE 81; RESP 20; TEMP 37.6; O2SAT 88
--- NOTE | 2022-01-04 16:25 | EDS_ITS ---
HPI History of Present Illness Chief Complaint: Fever Detail of Chief Complaint: Nausea and vomiting. Informant: patient and other Onset/Context/Timing Onset: Today and Yesterday Context: Gradual Onset Timing: Continuous Current Severity: Mild Maximum Severity: Mild Narrative Narrative: 66-year-old female history of dystonia, seizure disorder, cerebral palsy and wheelchair-bound. She lives at [facility]. Last night started having nausea vomiting again today with generalized weakness and fever 1-1.2. Treated with Tylenol at 2 PM. Denies any dysuria. No significant cough. No abdominal pain. Prior similar symptoms: No Recent Illness/Hospitalization: No [facility] Medical History Cerebral palsy Epilepsy Hiatal hernia Hirsutism Idiopathic mild intellectual disability Leukopenia Seizure Thrombocytopenia Home Medications alendronate 70 mg-cholecalciferol (vitamin D3) 2,800 unit tablet (Fosamax Plus D) 1 ea PO Q7D 12/17/14 [History Last Taken Unknown] baclofen 10 mg tablet 20 mg PO TID 12/17/14 [History Last Taken Unknown] carbamide peroxide 6.5 % ear drops (Ear Drops (carbamide peroxide)) 15 ml OT QWEEK 12/17/14 [History Last Taken Unknown] chlorhexidine gluconate 0.12 % mouthwash (Peridex) 15 ml MM BID 12/17/14 [History Last Taken Unknown] cholecalciferol (vitamin D3) 25 mcg (1,000 unit) tablet (Vitamin D3) 2,000 unit PO DAILY 12/17/14 [History Last Taken Unknown] omeprazole 40 mg capsule,delayed release (Prilosec) 20 mg PO BID 12/17/14 [History Last Taken Unknown] calcium carbonate 250 mg-vitamin D3 3.125 mcg (125 unit) tablet (Oyster Shell Calcium-Vitamin D3) 1 ea PO DAILY 10/13/16 [History Last Taken Unknown] levetiracetam 500 mg tablet 500 mg PO BID 09/28/19 [History Last Taken Unknown] tolterodine 2 mg tablet 2 mg PO DAILY 09/28/19 [History Last Taken Unknown] Triamcinolone 0.1% Cream [Kenalog] 1 applic topical BID 04/12/20 [History Last Taken Unknown] triamterene 37.5 mg-hydrochlorothiazide 25 mg tablet 1 tab PO DAILY 04/12/20 [History Last Taken Unknown] ondansetron 4 mg disintegrating tablet 4 mg PO Q8H PRN nausea and vomiting #7 tabs 01/22/21 [Rx Last Taken Unknown] sertraline 25 mg tablet 25 mg PO DAILY 01/22/21 [History Last Taken Unknown] Dupixent Pen See Rx Instructions .Route .COMPLEX 01/04/22 [History Last Taken Unknown] ondansetron 4 mg disintegrating tablet 4 mg PO Q6H PRN nausea and vomiting #7 tabs 01/04/22 [Rx Last Taken Unknown] tolterodine 2 mg capsule,extended release 24 hr 2 mg PO DAILY 01/04/22 [History Last Taken Unknown] Allergy/AdvReac Type Severity Reaction Status Date / Time doxycycline Allergy Hives Verified 01/04/22 15:02 Social History Smoking Status: Never smoker ROS ROS ED ROS Narrative Fever. Nausea and vomiting. Review of Systems ROS Unobtainable: Denies due to encephalopathy Constitutional Constitutional ED: Reports fever(s); Denies chills Eyes Eyes: Denies blurry vision ENT ENT ED: Denies ear pain Cardiovascular Cardiovascular: Denies chest pain Respiratory/Chest Respiratory/Chest: Denies cough or dyspnea Genitourinary Genitourinary ED: Denies dysuria Musculoskeletal Musculoskeletal: Denies arthralgias Integumentary Denies abscess Neurologic Neurologic: Denies headache(s) Psychiatric Psychiatric: Denies anxiety Endocrine Endocrinology: Denies cold intolerance Hematologic/Lymphatic Hematologic/Lymphatic: Reports none Allergic/Immunologic Allergic/Immunologic ED: Denies mouth swelling or tongue swelling EXAM Physical Exam Narrative Exam Narrative: 66-year-old female vital signs are stable currently afebrile temperature 99.7. Does not look septic or toxic. Pulse ox is 80% on room air mild hypoxia. H EENT exam dry mucous members. Neck nontender no meningismus. No lymphadenopathy. Lungs clear to auscultation bilaterally. Heart regular rhythm rate about 80 no murmur. Chest wall nontender. Abdomen soft nontender. Nondistended. No peritoneal signs. Moves all 4 extremities weakly. Has a history of cerebral palsy. Extremities are nontender. No cellulitis. Back nontender. Neurologically she is awake. She follows commands. She is a limited informant. She is weak in her legs from her cerebral palsy that is not new. Const Vital Signs: 01/04/22 15:03 01/04/22 15:21 01/04/22 17:37 Temperature 99.2 F H 99.7 F H 99.4 F H Temperature Source Temporal Oral Oral Pulse Rate 81 77 Respiratory Rate 20 H 20 H Blood Pressure 114/71 114/52 L Blood Pressure Mean 85 72 Pulse Ox 88 95 Oxygen Delivery Method Room Air Room Air Oxygen Flow Rate (L/min) 01/04/22 17:37 01/04/22 19:06 Temperature Temperature Source Pulse Rate 77 75 Respiratory Rate 20 H 19 H Blood Pressure 114/52 L 108/51 L Blood Pressure Mean 72 70 Pulse Ox 95 95 Oxygen Delivery Method Room Air Nasal Cannula Oxygen Flow Rate (L/min) 2 Positive well nourished, well developed and obese; Negative for cachectic, contractures or unkempt General Appearance ED: well developed and NAD; Negative for unkempt, cachectic, contractures, cyanotic or diaphoretic Nutritional Appearance: obese; Negative for cachectic HEENT Reports dry mucous membranes; Denies moist mucous membranes Negative for trauma or tenderness Mouth ED: Yes dry mucous membranes Mouth: dry mucous membranes Eyes PERRL and EOMs intact bilaterally General Eye ED: Negative for pale conjunctiva or scleral icterus Neck no lymphadenopathy, supple and no JVD General: Negative for tenderness Lymph Lymphatic: Negative for other Chest Wall inspection of chest normal and palpation of chest normal Chest: Negative for other Resp normal respiratory effort and clear to auscultation bilaterally Effort and Inspection: Negative for retractions Auscultation: Negative for rales, rhonchi or wheezes Cardio regular rate, regular rhythm, S1 normal heart sound, S2 normal heart sound and no murmurs Rate: Negative for bradycardia or tachycardic GI normal to inspection, nondistended, normoactive bowel sounds, non-tender, non- distended and no masses Auscultation: normoactive bowel sounds Palpation: soft; Negative for tender or guarding Back/Spine no CVA tenderness General Back: Negative for CVA tenderness Cervical Spine: Negative for cervical spine tenderness Thoracic Spine / Upper Back: Negative for thoracic spinal tenderness Lumbar Spine / Lower Back: Negative for lumbar spinal tenderness Extremity Negative for normal to inspection General Extremety ED: Yes edema; Negative for tenderness General Extremity: edema Neuro Sensorium / Orientation: alert Motor Exam: strength 5/5 throughout Psych mental status grossly normal Appearance: Negative for unkempt Attitude: No agitated Mood & Affect: Negative for depressed or anxious Skin no rashes or lesions noted and no wounds Rashes: No rashes noted Trauma: Negative for abrasion Wounds: Negative for wounds noted MDM MDM MDM Narrative Medical decision making narrative: 66-year-old female wheelchair-bound due to cerebral palsy from a shelter with a fever with nausea and vomiting. Exam her baseline. She will be worked up for infectious etiology. Treated with IV fluids due to clinical dehydration. Zofran for nausea. Screening labs, urinalysis and chest x-ray. They also requested COVID and influenza due to her being in a shelter. Repeat exam at 8:16 PM patient doing well. We went over her test results. She will be discharged back to the shelter. I will have nursing recheck her pulse ox prior to discharge. Lab Data Attestation: I reviewed the patient's lab results. Lab results narrative: CBC normal white count 8.7 H&H 12.5 and 38. Platelets 215. Electrolytes gap is 6 normal BUN and creatinine. Glucose 109. Lactic acid 0.7. Chest x-ray negative. Urinalysis negative positive nitrates but no white nor red cells nor bacteria. Labs: Laboratory Results - last 24 hr 01/04/22 01/04/22 01/04/22 15:00 15:00 15:00 WBC 8.7 RBC 4.31 Hgb 12.5 Hct 38.0 MCV 88.2 MCH 29.0 MCHC 32.9 RDW Std Deviation 44.9 H RDW Coeff of Chel 13.7 Plt Count 215 MPV 11.7 Immature Gran % (Auto) 0.200 Neut % (Auto) 79.5 H Lymph % (Auto) 13.7 L [place] % (Auto) 6.3 Eos % (Auto) 0.0 Baso % (Auto) 0.3 Absolute Neuts (auto) 6.9 Absolute Lymphs (auto) 1.19 Nucleated RBC % 0 Sodium 138 Potassium 3.5 Chloride 103 Carbon Dioxide 29.0 Anion Gap 6 BUN 20 H Creatinine 0.70 Estim Creat Clear Calc 46.50 Est GFR (MDRD) Af Amer 108 Est GFR (MDRD) Non-Af 89 BUN/Creatinine Ratio 28.8 H Glucose 109 H Lactic Acid 0.7 Calcium 8.7 Urine Color Urine Clarity Urine pH Ur Specific [place] Urine Protein Urine Glucose (UA) Urine Ketones Urine Occult Blood Urine Nitrite Urine Bilirubin Urine Urobilinogen Ur Leukocyte Esterase Urine RBC Urine WBC Ur Squamous Epith Cells Urine Bacteria Urine Mucus 01/04/22 17:00 WBC RBC Hgb Hct MCV MCH MCHC RDW Std Deviation RDW Coeff of Chel Plt Count MPV Immature Gran % (Auto) Neut % (Auto) Lymph % (Auto) [place] % (Auto) Eos % (Auto) Baso % (Auto) Absolute Neuts (auto) Absolute Lymphs (auto) Nucleated RBC % Sodium Potassium Chloride Carbon Dioxide Anion Gap BUN Creatinine Estim Creat Clear Calc Est GFR (MDRD) Af Amer Est GFR (MDRD) Non-Af BUN/Creatinine Ratio Glucose Lactic Acid Calcium Urine Color Heidi Urine Clarity Sl. Cloudy Urine pH 5.0 Ur Specific [place] 1.025 Urine Protein 30 H Urine Glucose (UA) Normal Urine Ketones 15 H Urine Occult Blood 10 H Urine Nitrite Positive H Urine Bilirubin 1 H Urine Urobilinogen 4 H Ur Leukocyte Esterase 25 H Urine RBC 0 SEEN Urine WBC 0-5 SEEN Ur Squamous Epith Cells 0 SEEN Urine Bacteria 0 SEEN Urine Mucus 3+ Radiography Chest X-Ray - ED: 1 View, Read by ED Physician, Read by Radiologist, Heart, Lungs, Mediastinum, Bony Structures, No Acute Disease and Chronic Changes Diagnostic Testing: Clinical Impression(s) from Imaging Studies Chest X-Ray 01/04/22 17:00 IMPRESSION: Left lower lobe subsegmental atelectasis Electronically Signed: Gabriel Smith MD at 17:34 EST Reading Location ID and State: [facility] / [place] , Service support , Chest x-ray, portable, interpreted both by myself and the radiologist single view shows no acute abnormality. Atelectasis. No infiltrate. Discharge Plan Triage Chief Complaint: Fever ED Provider: Mike Bullock Dx/Rx/DC Orders Clinical Impression: Viral syndrome, Fever, Vomiting, Hx of cerebral palsy Instructions: ED Viral Syndrome (Adult) Prescriptions: New ondansetron 4 mg tablet,disintegrating 4 mg PO Q6H PRN (Reason: nausea and vomiting) Qty: 7 0RF No Action baclofen 10 MG tablet 20 mg PO TID omeprazole [Prilosec] 40 MG capsule,delayed release(DR/EC) 20 mg PO BID Ear Drops (carbamide peroxide) 15 ML drops 15 ml OT QWEEK Label Comments: 2 DROPS EACH EAR ON THURSDAY AND THURSDAY Fosamax Plus D 1 EACH tablet 1 ea PO Q7D chlorhexidine gluconate [Peridex] 15 ML mouthwash 15 ml MM BID cholecalciferol (vitamin D3) [Vitamin D3] 1,000 UNIT tablet 2,000 unit PO DAILY calcium carbonate-vitamin D3 [Oyster Shell Calcium-Vit D3] 1 EACH tablet 1 ea PO DAILY levetiracetam 500 MG tablet 500 mg PO BID tolterodine 2 MG tablet 2 mg PO DAILY triamterene-hydrochlorothiazid 1 EACH tablet 1 tab PO DAILY Triamcinolone 0.1% Cream [Kenalog] 1 APPLIC Tube 1 applic TOPICAL BID sertraline 25 mg Tablet 25 mg PO DAILY ondansetron 4 mg tablet,disintegrating 4 mg PO Q8H PRN (Reason: nausea and vomiting) Qty: 7 0RF tolterodine 2 mg Capsule,Extended Release 24hr 2 mg PO DAILY Dupixent Pen See Rx Instructions .ROUTE .COMPLEX Rx Instructions: unsure of dose Primary Care Provider: Griselda Robertson Referrals: Griselda Robertson MD [Primary Care Provider] - 3-5 Days Activity Restrictions/Additional Instructions: Plenty of fluids and rest. Alternate Tylenol Motrin for fever. Follow-up with your doctor if not improving or return if worse. Zofran as needed for nausea. Disposition Disposition: Home, Self Care
[2022-01-04 16:45] LABS: Absolute Lymphocyte Count 1.19 X10^3/uL (0.83-4.51); Absolute Neutrophil Count 6.9 X10^3/uL (2.0-7.7); Basophil# 0.03 X10^3/uL; Basophil% 0.3 % (0-1); Hemoglobin 12.5 g/dL (12.0-15.0); Lymphocyte # 1.19 X10^3/ul (0.83-4.51); Lymphocyte % 13.7 % (19-41); Mean Corp Hgb Conc 32.9 g/dL (32-36); Mean Corpuscular Volume 88.2 fL (81-99); Mean Platelet Vol. 11.7 fl (6.2-12.0); Monocyte# 0.55 X10^3/uL; Monocyte% 6.3 % (0-10); NRBC Flagged by Analyzer 0 % (0-5); Neutrophil # 6.92 X10^3/uL (2.7-7.7); Neutrophil % 79.5 % (47-70); Platelet Count 215 K/mm3 (150-450); RBC Distribution Width CV 13.7 % (11.6-14.6); RBC Distribution Width SD 44.9 fl (35.1-43.9); Red Blood Count 4.31 M/mm3 (4.2-5.4); White Blood Count 8.7 K/mm3 (4.4-11.0)
[2022-01-04] MEDS: Ondansetron 4 MG/2 ML Vial IV (16:47)
[2022-01-04] MEDS: 0.9% Normal Saline 1,000 ML 1000 ML IV (16:47)
[2022-01-04 16:58] LABS: Anion Gap 6 (5-15); BUN 20 mg/dL (7-18); BUN/Creat Ratio 28.8 RATIO (10-20); Calcium,Total 8.7 mg/dL (8.5-10.1); Chloride 103 mmol/L (98-107); EST Glomerular Filtration Rate 89 mL/min (>60); Est Glom Filt Rate - Afr Amer 108 mL/min (>60); Glucose 109 mg/dL (74-106); Potassium 3.5 mmol/L (3.5-5.1); Sodium Level 138 mmol/L (136-145)
--- NOTE | 2022-01-04 17:00 | RAD_ITS ---
STUDY: X-RAY CHEST REASON FOR EXAM: Female, 66 years old. fever TECHNIQUE: Single frontal view of the chest. COMPARISON: January 22, 2021 FINDINGS: Left lower lobe subsegmental atelectasis otherwise The lungs are clear and expanded. There is no demonstrated pleural abnormality. Normal size heart. Normal mediastinum and ash. Normal visualized pulmonary arteries. Normal visualized aortic arch and descending thoracic aorta. Normal visualized thoracic spine. Normal visualized ribs, clavicles, and shoulders. There is no demonstrated abnormality of the visualized soft tissue structures of the upper abdomen. RAD/Chest 1 View (Portable) IMPRESSION: Left lower lobe subsegmental atelectasis Electronically Signed: Gabriel Smith MD at 17:34 EST ,
[2022-01-04 17:10] LABS: Bacteria 0 SEEN /hpf (None Seen); Red Blood Cells-Urine 0 SEEN /hpf (0-5); Squamous Epithelial Cells - UA 0 SEEN /hpf (5-10)
[2022-01-04 17:11] LABS: Lactic Acid 0.7 mmol/L (0.4-1.9)
[2022-01-04 17:12] LABS: Color, Urine Amber (Yellow); Glucose, Dipstick Normal (Normal); Ketone-Dipstick 15 mg/dl (Negative); Leukocyte Esterase-Dipstick 25 /ul (Negative); Nitrite-Dipstick Positive (Negative); Occult Blood-Urine 10 /ul (Negative); Protein-Dipstick 30 mg/dl (Negative); Specific Gravity, Urine 1.025 (1.002-1.030); Urine Bilirubin Dipstick 1 mg/dL (Negative); Urine Clarity Sl. Cloudy (Clear); Urine Urobilinogen 4 mg/dl (Normal)
[2022-01-04 17:20] LABS: Mucous, Urine 3+ /hpf (<or=2+); White Blood Cells 0-5 SEEN /hpf (0-5)
[2022-01-04 17:37] VITALS: BP 114/52; PULSE 77; RESP 20; TEMP 37.4; O2SAT 95
[2022-01-04 19:06] VITALS: BP 108/51; PULSE 75; RESP 19; O2SAT 95
[2022-01-04] MEDS: Acetaminophen 325 MG Tablet 650 MG PO (20:00)
== END 2022-01-04 21:34 | disposition home or self-care (01) ==
PROVIDERS: Emergency Provider Emergency Medicine; PCP Internal Medicine; Visit Provider Emergency Medicine
DX: R11.2 Nausea with vomiting, unspecified (principal); G80.9 Cerebral palsy, unspecified; G40.909 Epilepsy, unspecified, not intractable, without status epilepticus; Z99.3 Dependence on wheelchair; E86.0 Dehydration; B34.9 Viral infection, unspecified; E66.9 Obesity, unspecified; Z20.822 Contact with and (suspected) exposure to COVID-19
CPT/HCPCS: 71045; 80048; 81001; 83605; 85025; 87428; 96361; 96374; 99285; P9612; J2405

== ENCOUNTER 2022-01-04 15:19 | Emergency (ER) | payer MEDICARE, MEDICAID, SELFPAY | END 2022-01-04 23:59 | disposition home or self-care (01) | LOC: ED 05-13 17:29 | PROVIDERS: PCP Internal Medicine | DX: R11.2 Nausea with vomiting, unspecified (principal); G80.9 Cerebral palsy, unspecified; B34.9 Viral infection, unspecified; R50.9 Fever, unspecified; Z99.3 Dependence on wheelchair; E66.9 Obesity, unspecified; F70 Mild intellectual disabilities | CPT/HCPCS: 99283; J7030; A4216 ==

== ENCOUNTER 2022-05-25 17:18 | Emergency (ER) | payer MEDICARE, MEDICAID, SELFPAY ==
[2022-05-25 17:20] VITALS: BP 119/67; PULSE 132; RESP 26; TEMP 37.7; O2SAT 90; BMI 35.7
[2022-05-25 17:35] VITALS: BP 119/67; PULSE 132; RESP 26; TEMP 37.7; O2SAT 90
--- NOTE | 2022-05-25 17:38 | CT_ITS ---
STUDY: CT BRAIN WITHOUT CONTRAST REASON FOR EXAM: Female, 67 years old. Headache RADIATION DOSAGE (If Supplied By Facility): CTDIvol = ( 44.99 ) mGy, DLP = ( 829.85 ) mGycm TECHNIQUE: Transaxial CT imaging of the brain was performed without administration of intravenous contrast material. Individualized dose optimization techniques were used for this CT. COMPARISON: 02/02/2013 FINDINGS: Normal soft tissue structures. Normal calvarium. Normal size ventricles and extra-axial spaces for the patient''s age. Normal white matter tracts of the cerebral hemispheres. Normal basal ganglia and thalami. Normal brainstem. Normal cerebellum. There is no intracranial hemorrhage. There are no findings of an acute ischemic infarction. Normal visualized paranasal sinuses. CT/Brain/Head without Contrast IMPRESSION: Normal unenhanced CT scan of the brain. Electronically Signed: Steven Foley MD at 19:42 EDT ,
--- NOTE | 2022-05-25 17:52 | EDS_ITS ---
HPI History of Present Illness Chief Complaint: General Illness Informant: patient Onset/Context/Timing Onset: Yesterday Context: Sudden Onset Timing: Continuous Quality: Sharp Location: Generalized Worsened by: Nothing Relieved by: Nothing Narrative Narrative: Presents with a headache that began yesterday. Patient states it began rather suddenly. Patient states it has been constant. Patient states it is diffuse across her head. Patient describes her pain as sharp. Patient denies any prior history of headaches. Patient states nothing makes it better nothing makes it worse. Caregiver states patient did have a temperature of 102 earlier today. Patient has a chronic cough. Patient admits to a sore throat. Patient admits to nausea but denies any vomiting. Patient denies any visual changes or photophobia. [facility] Medical History Cerebral palsy Epilepsy Hiatal hernia Hirsutism Idiopathic mild intellectual disability Leukopenia Seizure Thrombocytopenia Home Medications alendronate 70 mg-cholecalciferol (vitamin D3) 2,800 unit tablet (Fosamax Plus D) 1 ea PO Q7D 12/17/14 [History Last Taken Unknown] baclofen 10 mg tablet 20 mg PO TID 12/17/14 [History Last Taken Unknown] carbamide peroxide 6.5 % ear drops (Ear Drops (carbamide peroxide)) 15 ml OT QWEEK 12/17/14 [History Last Taken Unknown] chlorhexidine gluconate 0.12 % mouthwash (Peridex) 15 ml MM BID 12/17/14 [History Last Taken Unknown] cholecalciferol (vitamin D3) 25 mcg (1,000 unit) tablet (Vitamin D3) 2,000 unit PO DAILY 12/17/14 [History Last Taken Unknown] omeprazole 40 mg capsule,delayed release (Prilosec) 20 mg PO BID 12/17/14 [History Last Taken Unknown] calcium carbonate 250 mg-vitamin D3 3.125 mcg (125 unit) tablet (Oyster Shell Calcium-Vitamin D3) 1 ea PO DAILY 10/13/16 [History Last Taken Unknown] levetiracetam 500 mg tablet 500 mg PO BID 09/28/19 [History Last Taken Unknown] tolterodine 2 mg tablet 2 mg PO DAILY 09/28/19 [History Last Taken Unknown] Triamcinolone 0.1% Cream [Kenalog] 1 applic topical BID 04/12/20 [History Last Taken Unknown] triamterene 37.5 mg-hydrochlorothiazide 25 mg tablet 1 tab PO DAILY 04/12/20 [History Last Taken Unknown] ondansetron 4 mg disintegrating tablet 4 mg PO Q8H PRN nausea and vomiting #7 tabs 01/22/21 [Rx Last Taken Unknown] sertraline 25 mg tablet 25 mg PO DAILY 01/22/21 [History Last Taken Unknown] Dupixent Pen See Rx Instructions .Route .COMPLEX 01/04/22 [History Last Taken Unknown] ondansetron 4 mg disintegrating tablet 4 mg PO Q6H PRN nausea and vomiting #7 tabs 01/04/22 [Rx Last Taken Unknown] tolterodine 2 mg capsule,extended release 24 hr 2 mg PO DAILY 01/04/22 [History Last Taken Unknown] Allergy/AdvReac Type Severity Reaction Status Date / Time doxycycline Allergy Hives Verified 05/25/22 17:31 Social History Smoking Status: Never smoker ROS ROS ED Constitutional Constitutional ED: Denies chills or fever(s) Eyes Eyes: Denies blurry vision or change in vision ENT ENT ED: Reports sore throat; Denies rhinorrhea Cardiovascular Cardiovascular: Denies chest pain or palpitations Respiratory/Chest Respiratory/Chest: Reports cough; Denies dyspnea Gastrointestinal Gastrointestinal: Reports nausea; Denies vomiting Genitourinary Genitourinary ED: Denies dysuria or hematuria Musculoskeletal Musculoskeletal: Denies back pain or neck pain Integumentary Denies abscess or rash Neurologic Neurologic: Reports headache(s); Denies weakness Allergic/Immunologic Allergic/Immunologic ED: Denies mouth swelling or urticaria EXAM Physical Exam Const Vital Signs: 05/25/22 17:20 05/25/22 17:32 05/25/22 17:35 Temperature 99.8 F H 99.8 F H Temperature Source Temporal Oral Pulse Rate 132 H 132 H Respiratory Rate 26 H 26 H Respiratory Effort Normal Non-Labored Respiratory Pattern Normal Blood Pressure 119/67 119/67 Blood Pressure Mean 84 84 Pulse Ox 90 90 Oxygen Delivery Method Room Air Room Air Positive well nourished, well developed and obese General Appearance ED: well developed Nutritional Appearance: obese HEENT Reports moist mucous membranes Neck supple and no JVD Neck Narrative: There are no meningeal signs noted. Resp normal respiratory effort and clear to auscultation bilaterally Cardio regular rate and regular rhythm GI normal to inspection, nondistended, normoactive bowel sounds and non-tender Palpation: soft Extremity normal to inspection General Extremety ED: Negative for edema or tenderness General Extremity: Negative for edema Neuro oriented x3, CN's II-XII intact bilaterally and no sensory deficits noted Sensorium / Orientation: alert Motor Exam: strength 5/5 throughout Psych mental status grossly normal Skin no rashes or lesions noted MDM MDM MDM Narrative Medical decision making narrative: Differential diagnosis includes sinusitis, subarachnoid hemorrhage, COVID-19 infection, influenza infection, and tension headache. CT scan of the brain will be obtained to assess for intracranial bleeding and sinusitis. COVID-19 rapid antigen will be obtained to assess for COVID-19 infection. Influenza A and influenza B antigens will be obtained to assess for influenza infection. Dilantin level will be obtained to assess for therapeutic effects of antiepileptic medication. CBC will be obtained to assess for leukocytosis and anemia. Basic metabolic profile will be obtained to assess for renal function and electrolyte abnormality. Lab Data Attestation: I reviewed the patient's lab results. Lab results narrative: CBC was reviewed and was within normal limits. Basic metabolic profile was reviewed and was essentially within normal limits. Dilantin level was reviewed and was subtherapeutic at 0.5. COVID-19 rapid antigen was reviewed and was positive. Influenza A and influenza B antigens were reviewed and were negative. Labs: Laboratory Results - last 24 hr 05/25/22 05/25/22 05/25/22 18:25 18:25 18:25 WBC 7.5 RBC 4.56 Hgb 13.4 Hct 40.1 MCV 87.9 MCH 29.4 MCHC 33.4 RDW Std Deviation 43.1 RDW Coeff of Chel 13.3 Plt Count 212 MPV 11.2 Immature Gran % (Auto) 0.300 Neut % (Auto) 71.3 H Lymph % (Auto) 14.9 L [place] % (Auto) 13.1 H Eos % (Auto) 0.0 Baso % (Auto) 0.4 Absolute Neuts (auto) 5.4 Absolute Lymphs (auto) 1.12 Nucleated RBC % 0 Sodium 135 L Potassium 3.5 Chloride 104 Carbon Dioxide 27.0 Anion Gap 4 L BUN 24 H Creatinine 0.79 Estim Creat Clear Calc 45.85 Est GFR (MDRD) Af Amer 93 Est GFR (MDRD) Non-Af 77 BUN/Creatinine Ratio 30.5 H Glucose 119 H Calcium 9.1 Phenytoin 0.5 L Radiography Diagnostic Testing: Clinical Impression(s) from Imaging Studies Brain CT 05/25/22 17:38 IMPRESSION: Normal unenhanced CT scan of the brain. Electronically Signed: Steven Foley MD at 19:42 EDT , CT scan of the brain was obtained. There is no acute intracranial abnormality. This was interpreted by the radiologist and was also independently reviewed by myself. Treatment and Re-Evaluation :: Patient was given IV fluids, Compazine, and Benadryl. Patient is sleeping on reevaluation. Patient states her headache has resolved. Patient was advised of her findings. Caregiver was also advised of her findings. Caregiver stated patient had a choking episode earlier today and it were concerned about aspiration. Caregiver was advised to patient's lungs are clear and she does not sound as though she had aspirated. Caregiver is agreeable with this. Caregiver was instructed to follow-up patients primary care physician in 5 to 7 days. Caregiver understands and is agreeable with the plan. All questions were answered. Discharge Plan Triage Chief Complaint: General Illness ED Provider: Paulo Dillard Dx/Rx/DC Orders Clinical Impression: COVID-19, Headache, Subtherapeutic serum dilantin level Instructions: Coronavirus Disease 2019 (COVID-19): Overview Prescriptions: No Action baclofen 10 MG tablet 20 mg PO TID omeprazole [Prilosec] 40 MG capsule,delayed release(DR/EC) 20 mg PO BID Ear Drops (carbamide peroxide) 15 ML drops 15 ml OT QWEEK Label Comments: 2 DROPS EACH EAR ON THURSDAY AND THURSDAY Fosamax Plus D 1 EACH tablet 1 ea PO Q7D chlorhexidine gluconate [Peridex] 15 ML mouthwash 15 ml MM BID cholecalciferol (vitamin D3) [Vitamin D3] 1,000 UNIT tablet 2,000 unit PO DAILY calcium carbonate-vitamin D3 [Oyster Shell Calcium-Vit D3] 1 EACH tablet 1 ea PO DAILY levetiracetam 500 MG tablet 500 mg PO BID tolterodine 2 MG tablet 2 mg PO DAILY triamterene-hydrochlorothiazid 1 EACH tablet 1 tab PO DAILY Triamcinolone 0.1% Cream [Kenalog] 1 APPLIC Tube 1 applic TOPICAL BID sertraline 25 mg Tablet 25 mg PO DAILY ondansetron 4 mg tablet,disintegrating 4 mg PO Q8H PRN (Reason: nausea and vomiting) Qty: 7 0RF tolterodine 2 mg Capsule,Extended Release 24hr 2 mg PO DAILY Dupixent Pen See Rx Instructions .ROUTE .COMPLEX Rx Instructions: unsure of dose ondansetron 4 mg tablet,disintegrating 4 mg PO Q6H PRN (Reason: nausea and vomiting) Qty: 7 0RF Primary Care Provider: Griselda Robertson Referrals: Griselda Robertson MD [Primary Care Provider] - 3-5 Days Disposition Disposition: Home, Self Care
[2022-05-25 18:30] LABS: Absolute Lymphocyte Count 1.12 X10^3/uL (0.83-4.51); Absolute Neutrophil Count 5.4 X10^3/uL (2.0-7.7); Basophil# 0.03 X10^3/uL; Basophil% 0.4 % (0-1); Hematocrit 40.1 % (37-47); Hemoglobin 13.4 g/dL (12.0-15.0); Lymphocyte # 1.12 X10^3/ul (0.83-4.51); Lymphocyte % 14.9 % (19-41); Mean Corp Hgb Conc 33.4 g/dL (32-36); Mean Corpuscular Hgb 29.4 pg (27.0-32.0); Mean Corpuscular Volume 87.9 fL (81-99); Mean Platelet Vol. 11.2 fl (6.2-12.0); Monocyte# 0.98 X10^3/uL; Monocyte% 13.1 % (0-10); NRBC Flagged by Analyzer 0 % (0-5); Neutrophil # 5.35 X10^3/uL (2.7-7.7); Neutrophil % 71.3 % (47-70); Platelet Count 212 K/mm3 (150-450); RBC Distribution Width CV 13.3 % (11.6-14.6); RBC Distribution Width SD 43.1 fl (35.1-43.9); Red Blood Count 4.56 M/mm3 (4.2-5.4); White Blood Count 7.5 K/mm3 (4.4-11.0)
[2022-05-25] MEDS: proCHLORPERazine 10 MG/2 ML Vial IV (18:35)
[2022-05-25] MEDS: 0.9% Normal Saline 1,000 ML 999 ML IV (18:35)
[2022-05-25] MEDS: DiphenhydrAMINE 50 MG/ML Syringe 25 MG IV (18:35)
[2022-05-25 18:46] LABS: Anion Gap 4 (5-15); BUN 24 mg/dL (7-18); BUN/Creat Ratio 30.5 RATIO (10-20); Calcium,Total 9.1 mg/dL (8.5-10.1); Chloride 104 mmol/L (98-107); Creatinine, Serum 0.79 mg/dL (0.55-1.02); EST Glomerular Filtration Rate 77 mL/min (>60); Est Glom Filt Rate - Afr Amer 93 mL/min (>60); Estimated Creatinine Clearance 45.85 ml/min; Glucose 119 mg/dL (74-106); Potassium 3.5 mmol/L (3.5-5.1); Sodium Level 135 mmol/L (136-145)
[2022-05-25 18:53] LABS: Phenytoin (Dilantin) Level 0.5 mL (10.0-20.0)
[2022-05-25 20:18] VITALS: BP 113/66; PULSE 79; RESP 21; TEMP 36.7; O2SAT 92
== END 2022-05-25 20:18 | disposition home or self-care (01) ==
PROVIDERS: Emergency Provider Emergency Medicine; PCP Internal Medicine; Visit Provider Emergency Medicine
DX: U07.1 COVID-19 (principal); G40.909 Epilepsy, unspecified, not intractable, without status epilepticus; R51.9 Headache, unspecified; R89.2 Abnormal level of other drugs, medicaments and biological substances in specimens from other organs, systems and tissues; Z79.899 Other long term (current) drug therapy
CPT/HCPCS: 70450; 80048; 80185; 85025; 87428; 96361; 96374; 96375; 99284; J7030; A4216

== ENCOUNTER 2023-01-11 14:23 | Emergency (ER) | payer MEDICARE, MEDICAID, SELFPAY ==
[2023-01-11 14:29] VITALS: BP 135/85; PULSE 129; RESP 23; TEMP 36.8; O2SAT 93; BMI 34.9
--- NOTE | 2023-01-11 14:45 | EKG12_ITS ---
Test Reason : COUGH Blood Pressure : / mmHG Vent. Rate : 106 BPM Atrial Rate : 106 BPM P-R Int : 178 ms QRS Dur : 082 ms QT Int : 354 ms P-R-T Axes : 029 114 046 degrees QTc Int : 470 ms Sinus tachycardia with occasional Premature ventricular complexes Left posterior fascicular block Abnormal ECG Confirmed by AIXA CLARK, NAA ([id number]), associate entertainment editor PRESLEY VANESSA ([id number]) on 01/12/2023 10:59:37 AM Referred By: Confirmed By:NAA KRUSE MD
--- NOTE | 2023-01-11 14:56 | EDS_ITS ---
<Statement entered by Verna Vasquez MD - 01/11/23 19:31> I have personally performed a face to face assessment of the patient and have reviewed the KASEY Note. Patient presents secondary to tachycardia and coughing episode. Patient has a history of cerebral palsy and lives in a skilled nursing. Staff member does accompany her. Apparently today the patient had an atypical coughing fits and then had trouble catching her breath. Her heart rate was noted to be persistently elevated in the 140s. Staff number does tell me she has a history of aspiration. At the time of my examination heart rate is around 108 and patient states she has no complaints at this time. Patient sitting upright in bed no acute distress. Head and neck examination unremarkable. Heart is slightly tachycardic and regular. Lung sounds are clear with good air movement throughout. No wheezes or rhonchi noted. Abdomen is soft and nontender. EKG reveals sinus tachycardia. Chest x-ray reveals chronic changes with no obvious infiltrate. Laboratory work-up is unremarkable. Given her history of aspiration and description of today's episode I do have concern that she may have aspirated. She will be covered with antibiotics. 7 [facility] is comfortable this plan and return instructions been provided. HPI History of Present Illness Chief Complaint: Palpitations Narrative Narrative: Patient is a 67-year-old female with history of seizures, cerebral palsy, GERD skilled nursing presenting to the emergency department for coughing and difficulty catching her breath. Per the staff member, the patient got out of the shower, had a coughing fit, had difficulty catching her breath, her heart rate was in the 140s and her pulse oxygenation dropped down to 91%. Patient continued to feel short of breath, and they are here for evaluation. Patient is at her baseline at this time, patient states she does feel better. She denies any recent history of fever or chills. Patient states the cough started today. [facility] Medical History Cerebral palsy Epilepsy Hiatal hernia Hirsutism Idiopathic mild intellectual disability Leukopenia Seizure Thrombocytopenia Home Medications alendronate 70 mg-cholecalciferol (vitamin D3) 2,800 unit tablet (Fosamax Plus D) 1 ea PO Q7D 12/17/14 [History Last Taken Unknown] baclofen 10 mg tablet 20 mg PO TID 12/17/14 [History Last Taken Unknown] carbamide peroxide 6.5 % ear drops (Ear Drops (carbamide peroxide)) 15 ml OT QWEEK 12/17/14 [History Last Taken Unknown] chlorhexidine gluconate 0.12 % mouthwash (Peridex) 15 ml MM BID 12/17/14 [History Last Taken Unknown] cholecalciferol (vitamin D3) 25 mcg (1,000 unit) tablet (Vitamin D3) 2,000 unit PO DAILY 12/17/14 [History Last Taken Unknown] omeprazole 40 mg capsule,delayed release (Prilosec) 20 mg PO BID 12/17/14 [History Last Taken Unknown] calcium carbonate 250 mg-vitamin D3 3.125 mcg (125 unit) tablet (Oyster Shell Calcium-Vitamin D3) 1 ea PO DAILY 10/13/16 [History Last Taken Unknown] levetiracetam 500 mg tablet 500 mg PO BID 09/28/19 [History Last Taken Unknown] tolterodine 2 mg tablet 2 mg PO DAILY 09/28/19 [History Last Taken Unknown] Triamcinolone 0.1% Cream [Kenalog] 1 applic topical BID 04/12/20 [History Last Taken Unknown] triamterene 37.5 mg-hydrochlorothiazide 25 mg tablet 1 tab PO DAILY 04/12/20 [History Last Taken Unknown] ondansetron 4 mg disintegrating tablet 4 mg PO Q8H PRN nausea and vomiting #7 tabs 01/22/21 [Rx Last Taken Unknown] sertraline 25 mg tablet 25 mg PO DAILY 01/22/21 [History Last Taken Unknown] Dupixent Pen See Rx Instructions .Route .COMPLEX 01/04/22 [History Last Taken Unknown] ondansetron 4 mg disintegrating tablet 4 mg PO Q6H PRN nausea and vomiting #7 tabs 01/04/22 [Rx Last Taken Unknown] tolterodine 2 mg capsule,extended release 24 hr 2 mg PO DAILY 01/04/22 [History Last Taken Unknown] amoxicillin 875 mg-potassium clavulanate 125 mg tablet 1 tab PO BID #20 tabs 01/11/23 [Rx Last Taken Unknown] Allergy/AdvReac Type Severity Reaction Status Date / Time doxycycline Allergy Hives Verified 01/11/23 14:29 Social History Smoking Status: Never smoker ROS ROS ED ROS Narrative Constitutional: Negative for fever, chills, weight loss, weakness Eyes: Negative for vision loss, vision change, double vision ENT: Negative for any sore throat, ear pain, congestion Cardiovascular: Negative for any chest pain, tightness. Positive palpitations Respiratory: Negative for any sputum production, hemoptysis, dyspnea, dyspnea on exertion, orthopnea. Positive for cough Gastrointestinal: Negative for any abdominal pain, nausea, vomiting, diarrhea, constipation, blood in stool, blood in vomit : Negative for any urinary frequency, dysuria, retention, blood in urine Muscle skeletal: Negative for any myalgias, arthralgias, neck pain, back pain Neurological: Negative for any headache, syncope, numbness or tingling, dizziness Skin: Negative for any rashes, lumps, itching, abrasions, lacerations Psychiatric: Negative for any depression, anxiety, stress, suicidal ideation, homicidal ideation Hematologic: Negative for any easy bruising, excessive bruising, easy bleeding Allergies: Negative for any eczema, hives, rash EXAM Physical Exam Narrative Exam Narrative: Vital signs reviewed. Patient is alert and orient x4, patient is in no obvious distress. Patient is tachycardic at a rate of 112 when I was in the room. HEET: Head normocephalic atraumatic, TMs clear bilaterally. Posterior pharynx is clear, moist mucous membranes. Nares clear bilaterally. Neck: Supple with no lymphadenopathy or tenderness. No signs of meningismus. Cardiac: Tachycardic rate no murmurs gallops or rubs, equal peripheral pulses bilaterally. Respiratory: Patient does have some rhonchorous breath sounds to the left lower lobe, left worse than the right.. No chest tenderness. Abdomen: Soft, nontender, nondistended. No abdominal bruit or pulsatile masses. No hepatosplenomegaly Extremities: No peripheral edema, no signs of gross trauma or deformity. Active full range of motion of all extremities. Neuro: Cranial nerves II through XII intact, no focal neurological deficits. Skin: Clean dry and intact with no rash, purpura, petechiae, vesicles or pustules. Backs/flank: No CVA tenderness, no midline spinal tenderness, no deformity. Psych: Normal mood and affect. No SI, HI or acute psychosis. Const Vital Signs: 01/11/23 14:29 01/11/23 14:45 Temperature 98.2 F Temperature Source Oral Pulse Rate 129 H Respiratory Rate 23 H Blood Pressure 135/85 H Blood Pressure Mean 101 Pulse Ox 93 Oxygen Delivery Method Room Air Room Air [facility] Lab Data Labs: Laboratory Results - last 24 hr 01/11/23 14:55 WBC 11.2 H RBC 4.93 Hgb 13.9 Hct 42.3 MCV 85.8 MCH 28.2 MCHC 32.9 RDW Std Deviation 41.1 RDW Coeff of Chel 13.1 Plt Count 265 MPV 11.2 Immature Gran % (Auto) 0.400 Neut % (Auto) 83.5 H Lymph % (Auto) 10.4 L [place] % (Auto) 5.0 Eos % (Auto) 0.3 Baso % (Auto) 0.4 Absolute Neuts (auto) 9.4 H Absolute Lymphs (auto) 1.16 Nucleated RBC % 0 D-Dimer Quant (PE/DVT) 0.42 Sodium 136 Potassium 4.3 Chloride 102 Carbon Dioxide 29.0 Anion Gap 5 BUN 17 Creatinine 0.82 Estim Creat Clear Calc 55.91 Est GFR (MDRD) Af Amer 89 Est GFR (MDRD) Non-Af 73 BUN/Creatinine Ratio 20.7 H Glucose 153 H Calcium 9.5 Radiography Diagnostic Testing: Clinical Impression(s) from Imaging Studies Chest X-Ray 01/11/23 15:08 IMPRESSION: There are no acute findings. Electronically Signed: Julio César Bear MD at 15:18 EST Reading Location ID and State: [facility] / [place] , Service support , EKG Sinus tachycardia: Attestation: I personally reviewed and interpreted this EKG as follows: Comments: Sinus tachycardia the rate 106 bpm, IA 178 ms, QRS duration 82 ms, no acute ST elevation, no acute infarct noted. Treatment and Re-Evaluation :: Patient appears to be in no obvious distress, patient's 94% on room air, she presents to the emergency department with complaints of coughing, increased heart rate. Differential diagnosis includes pulmonary embolus, pneumonia, influenza, COVID-19, other viral illness. Patient will be given a chest x-ray, patient remained monitored, laboratory values will be ordered concerning for any leukocytosis, electrolyte abnormality. Patient will receive a rapid COVID-19, rapid flu. D-dimer will also be ordered. Patient's chest x-ray showed no acute findings. Patient's CBC showed a leukocytosis white blood count 11.2, patient's chemistries were unremarkable. Patient's D-dimer was negative, no evidence suspect any pulmonary embolus. Patient's COVID-19, influenza was negative. At this time, there is no acute process. However secondary the patient's history of cerebral palsy, history of aspiration, patient be treated with Augmentin. I spoke with the patient, the care provider, they are all in agreement. Patient given her first dose of Augmentin here, all questions were answered, instructed return for worsening symptoms. Discharge Plan Triage Chief Complaint: Palpitations Other Complaint: Lower Extremity Injury ED Midlevel Provider: Ty Delgado ED Provider: Verna Vasquez Dx/Rx/DC Orders Clinical Impression: Aspiration into lower respiratory tract, Cough, Acute bronchospasm Instructions: ED Bronchospasm (Adult), ED Choking Spell (Adult) Prescriptions: New amoxicillin-pot clavulanate 875-125 mg tablet 1 tab PO BID Qty: 20 0RF No Action baclofen 10 MG tablet 20 mg PO TID omeprazole [Prilosec] 40 MG capsule,delayed release(DR/EC) 20 mg PO BID Ear Drops (carbamide peroxide) 15 ML drops 15 ml OT QWEEK Patient Comments: 2 DROPS EACH EAR ON THURSDAY AND THURSDAY Fosamax Plus D 1 EACH tablet 1 ea PO Q7D chlorhexidine gluconate [Peridex] 15 ML mouthwash 15 ml MM BID cholecalciferol (vitamin D3) [Vitamin D3] 1,000 UNIT tablet 2,000 unit PO DAILY calcium carbonate-vitamin D3 [Oyster Shell Calcium-Vit D3] 1 EACH tablet 1 ea PO DAILY levetiracetam 500 MG tablet 500 mg PO BID tolterodine 2 MG tablet 2 mg PO DAILY triamterene-hydrochlorothiazid 1 EACH tablet 1 tab PO DAILY Triamcinolone 0.1% Cream [Kenalog] 1 APPLIC Tube 1 applic TOPICAL BID sertraline 25 mg Tablet 25 mg PO DAILY ondansetron 4 mg tablet,disintegrating 4 mg PO Q8H PRN (Reason: nausea and vomiting) Qty: 7 0RF tolterodine 2 mg Capsule,Extended Release 24hr 2 mg PO DAILY Dupixent Pen See Rx Instructions .ROUTE .COMPLEX Rx Instructions: unsure of dose ondansetron 4 mg tablet,disintegrating 4 mg PO Q6H PRN (Reason: nausea and vomiting) Qty: 7 0RF Primary Care Provider: Griselda Robertson Referrals: Griselda Robertson MD [Primary Care Provider] - Activity Restrictions/Additional Instructions: Take antibiotics as indicated. Return for worsening symptoms Disposition Disposition: Home, Self Care
[2023-01-11 15:06] LABS: Absolute Lymphocyte Count 1.16 X10^3/uL (0.83-4.51); Absolute Neutrophil Count 9.4 X10^3/uL (2.0-7.7); Basophil# 0.05 X10^3/uL; Basophil% 0.4 % (0-1); Eosinophil# 0.03 X10^3/uL; Eosinophils% 0.3 % (0-5); Hematocrit 42.3 % (37-47); Hemoglobin 13.9 g/dL (12.0-15.0); Lymphocyte # 1.16 X10^3/ul (0.83-4.51); Lymphocyte % 10.4 % (19-41); Mean Corp Hgb Conc 32.9 g/dL (32-36); Mean Corpuscular Hgb 28.2 pg (27.0-32.0); Mean Corpuscular Volume 85.8 fL (81-99); Mean Platelet Vol. 11.2 fl (6.2-12.0); Monocyte# 0.56 X10^3/uL; NRBC Flagged by Analyzer 0 % (0-5); Neutrophil # 9.36 X10^3/uL (2.7-7.7); Neutrophil % 83.5 % (47-70); Platelet Count 265 K/mm3 (150-450); RBC Distribution Width CV 13.1 % (11.6-14.6); RBC Distribution Width SD 41.1 fl (35.1-43.9); Red Blood Count 4.93 M/mm3 (4.2-5.4); White Blood Count 11.2 K/mm3 (4.4-11.0)
--- NOTE | 2023-01-11 15:08 | RAD_ITS ---
STUDY: XR Chest 1 View 01/11/2023 3:07 PM REASON FOR EXAM: Female, 67 years old. cough COMPARISON: 01/04/2022 TECHNIQUE: XR Chest 1 View FINDINGS: There is no demonstrated pleural abnormality. Enlarged heart size. Normal mediastinum. Normal ash. Prominent appearing increased interstitial lung markings. Normal visualized pulmonary arteries. There is atherosclerotic calcification of the aortic arch with tortuosity. There are diffuse degenerative changes of the visualized thoracic spine. There is degenerative osteoarthritis of the bilateral shoulders. There are no acute findings of the upper abdomen. RAD/Chest 1 View (Portable) IMPRESSION: There are no acute findings. Electronically Signed: Julio César Bear MD at 15:18 EST ,
[2023-01-11 15:17] LABS: D-Dimer Quantitative (DVT/PE) 0.42 FEU/ug/m (0.27-0.49)
[2023-01-11 15:20] LABS: Anion Gap 5 (5-15); BUN 17 mg/dL (7-18); BUN/Creat Ratio 20.7 RATIO (10-20); Calcium,Total 9.5 mg/dL (8.5-10.1); Chloride 102 mmol/L (98-107); Creatinine, Serum 0.82 mg/dL (0.55-1.02); EST Glomerular Filtration Rate 73 mL/min (>60); Est Glom Filt Rate - Afr Amer 89 mL/min (>60); Estimated Creatinine Clearance 55.91 ml/min; Glucose 153 mg/dL (74-106); Potassium 4.3 mmol/L (3.5-5.1); Sodium Level 136 mmol/L (136-145)
[2023-01-11] MEDS: Amox/Clavulanate 875 MG Tablet PO (16:58)
== END 2023-01-11 16:59 | disposition home or self-care (01) ==
PROVIDERS: Nurse Practitioner; Emergency Provider Emergency Medicine; PCP Internal Medicine; Visit Provider Emergency Medicine
DX: R00.2 Palpitations (principal); J98.01 Acute bronchospasm; R05.9 Cough, unspecified; T17.908A Unspecified foreign body in respiratory tract, part unspecified causing other injury, initial encounter
CPT/HCPCS: 71045; 80048; 85025; 85379; 87428; 93005; 99285

== ENCOUNTER 2023-02-19 07:20 | Inpatient (IN) | payer MEDICARE, MEDICAID, SELFPAY ==
[2023-02-19 07:25] VITALS: BP 128/70; PULSE 93; RESP 15; TEMP 36.2; O2SAT 95; BMI 35.6
--- NOTE | 2023-02-19 07:40 | CT_ITS ---
STUDY: CT ABDOMEN AND PELVIS WITHOUT CONTRAST REASON FOR EXAM: Female, 67 years old. Dark brown emesis. History of hiatal hernia. RADIATION DOSAGE (If Supplied By Facility): CTDIvol = ( 19.00 ) mGy, DLP = ( 935.29 ) mGycm TECHNIQUE: Transaxial images were obtained from the dome of the diaphragm to the symphysis pubis without oral contrast, and without intravenous contrast. Sagittal and coronal images were reconstructed. Individualized dose optimization techniques were used for this CT. COMPARISON: Comparison is made with prior examination dated December 17, 2014. FINDINGS: Mild increased markings at the lung bases suggestive of atelectasis. The visualized portions of the heart are within normal limits. Normal liver. Findings suggestive of gallstones. Normal spleen. Normal pancreas. Normal bilateral adrenal glands. Normal right kidney. Normal left kidney. There is a large hiatal hernia composed mostly of the fundus of the stomach. Normal small intestine. There are scattered colonic diverticula consistent with diverticulosis. There are surgical clips in the region of the appendix consistent with a prior appendectomy. There is scattered atherosclerotic calcification of the abdominal aorta, without a demonstrated aneurysm. Normal inferior vena cava. Normal retroperitoneum. Normal urinary bladder. Normal abdominal wall. There are degenerative changes of the visualized lumbar spine. CT/Abdomen/Pelvis without Cont IMPRESSION: Large hiatal hernia. Findings suggestive of a gallstones. Bibasilar atelectasis. Electronically Signed: Reilly Camarillo MD at 8:37 EST ,
--- NOTE | 2023-02-19 07:41 | EDS_ITS ---
HPI History of Present Illness Chief Complaint: Nausea/Vomiting Informant: patient and other Onset/Context/Timing Onset: Today Narrative Narrative: Patient presents via EMS after having nausea and vomiting this morning. He states that her vomitus was dark brown in color. She states that she feels fine now. She denies abdominal pain and states she had a normal bowel movement yesterday. [facility] Medical History (Updated 02/19/23 @ 11:[address] Verna Vasquez MD) Cerebral palsy Cervical spondylosis Dystonia Epilepsy Hiatal hernia Hirsutism Idiopathic mild intellectual disability Leukopenia Seizure Thrombocytopenia Home Medications alendronate 70 mg-cholecalciferol (vitamin D3) 2,800 unit tablet (Fosamax Plus D) 1 ea PO Q7D 12/17/14 [History Last Taken Unknown] baclofen 10 mg tablet 20 mg PO TID 12/17/14 [History Last Taken Unknown] carbamide peroxide 6.5 % ear drops (Ear Drops (carbamide peroxide)) 15 ml OT QWEEK 12/17/14 [History Last Taken Unknown] chlorhexidine gluconate 0.12 % mouthwash (Peridex) 15 ml MM BID 12/17/14 [History Last Taken Unknown] cholecalciferol (vitamin D3) 25 mcg (1,000 unit) tablet (Vitamin D3) 2,000 unit PO DAILY 12/17/14 [History Last Taken Unknown] calcium carbonate 250 mg-vitamin D3 3.125 mcg (125 unit) tablet (Oyster Shell Calcium-Vitamin D3) 1 ea PO DAILY 10/13/16 [History Last Taken Unknown] levetiracetam 500 mg tablet 500 mg PO BID 09/28/19 [History Last Taken Unknown] Triamcinolone 0.1% Cream [Kenalog] 1 applic topical BID 04/12/20 [History Last Taken Unknown] triamterene 37.5 mg-hydrochlorothiazide 25 mg tablet 1 tab PO DAILY PRN CLEMENTINE EDEMA 04/12/20 [History Last Taken Unknown] sertraline 25 mg tablet 50 mg PO DAILY 01/22/21 [History Last Taken Unknown] Dupixent Pen See Rx Instructions .Route .COMPLEX 01/04/22 [History Last Taken Unknown] ondansetron 4 mg disintegrating tablet 4 mg PO Q6H PRN nausea and vomiting #7 ta bs 01/04/22 [Rx Last Taken Unknown] tolterodine 2 mg capsule,extended release 24 hr 2 mg PO DAILY 01/04/22 [History Last Taken Unknown] ondansetron 4 mg disintegrating tablet 4 mg PO Q6H PRN nausea and vomiting 02/19/23 [History Last Taken Unknown] pantoprazole 40 mg tablet,delayed release 40 mg PO DAILY 02/19/23 [History Last Taken Unknown] Allergy/AdvReac Type Severity Reaction Status Date / Time doxycycline Allergy Hives Verified 02/19/23 07:57 Social History Smoking Status: Never smoker ROS ROS ED Constitutional Constitutional ED: Denies chills or fever(s) Eyes Eyes: Denies discharge from eye(s) ENT ENT ED: Denies discharge from eye(s), rhinorrhea or sore throat Cardiovascular Cardiovascular: Denies chest pain or palpitations Respiratory/Chest Respiratory/Chest: Denies cough or dyspnea Gastrointestinal Gastrointestinal: Reports nausea and vomiting; Denies abdominal pain or diarrhea Genitourinary Genitourinary ED: Denies dysuria Musculoskeletal Musculoskeletal: Denies back pain or extremity pain Integumentary Denies Abrasions or rash Neurologic Neurologic: Denies headache(s) or weakness Psychiatric Psychiatric: Denies anxiety or depression Allergic/Immunologic Allergic/Immunologic ED: Denies lip swelling or urticaria EXAM Physical Exam Const Vital Signs: 02/19/23 07:25 02/19/23 11:09 Temperature 97.1 F L 98.3 F Temperature Source Temporal Oral Pulse Rate 93 89 Respiratory Rate 15 22 H Blood Pressure 128/70 H 126/75 H Blood Pressure Mean 89 92 Pulse Ox 95 94 Oxygen Delivery Method Room Air Room Air Positive well nourished and well developed General Appearance ED: well developed HEENT Reports moist mucous membranes Eyes EOMs intact bilaterally Chest Wall inspection of chest normal and palpation of chest normal Resp normal respiratory effort and clear to auscultation bilaterally Cardio regular rate and regular rhythm GI non-tender Auscultation: hyperactive bowel sounds Neuro Neuro Narrative: Alert and oriented. Answers questions appropriately. Skin no rashes or lesions noted MDM MDM MDM Narrative Medical decision making narrative: IV line established. Patient given Zofran for nausea. Labwork obtained to evaluate for leukocytosis, anemia, and electrolyte derangement. CT scan of the abdomen pelvis obtained. Patient's clothes were saturated with dark brown vomitus. She does report history of GERD and her medication list does include omeprazole. She denies epigastric pain at this time. Lab Data Attestation: I reviewed the patient's lab results. Labs: Laboratory Results - last 24 hr 02/19/23 02/19/23 07:52 08:58 WBC 10.8 RBC 4.32 Hgb 12.3 Hct 38.1 MCV 88.2 MCH 28.5 MCHC 32.3 RDW Std Deviation 42.1 RDW Coeff of Chel 13.1 Plt Count 295 MPV 11.1 Immature Gran % (Auto) 0.300 Neut % (Auto) 75.1 H Lymph % (Auto) 16.9 L [place] % (Auto) 6.1 Eos % (Auto) 1.0 Baso % (Auto) 0.6 Absolute Neuts (auto) 8.1 H Absolute Lymphs (auto) 1.83 Nucleated RBC % 0 Sodium 138 Potassium 4.7 Chloride 106 Carbon Dioxide 27.0 Anion Gap 5 BUN 41 H Creatinine 0.61 Estim Creat Clear Calc 73.87 Est GFR (MDRD) Af Amer 125 Est GFR (MDRD) Non-Af 103 BUN/Creatinine Ratio 67.2 H Glucose 103 Calcium 8.9 Total Bilirubin 0.50 Direct Bilirubin 0.11 AST 10 L ALT 17 Alkaline Phosphatase 95 Total Protein 6.7 Albumin 3.0 L Globulin 3.7 Lipase 30 Urine Color Yellow Urine Clarity Sl. Cloudy Urine pH 8.0 Ur Specific [place] 1.010 Urine Protein Negative Urine Glucose (UA) Normal Urine Ketones Negative Urine Occult Blood Negative Urine Nitrite Negative Urine Bilirubin Negative Urine Urobilinogen Normal Ur Leukocyte Esterase 25 H Urine RBC 0 SEEN Urine WBC 5-10 SEEN Ur Squamous Epith Cells 0 SEEN Urine Bacteria 4+ Urine Mucus 0 SEEN Radiography Diagnostic Testing: Clinical Impression(s) from Imaging Studies Abdomen/Pelvis CT 02/19/23 07:40 IMPRESSION: Large hiatal hernia. Findings suggestive of a gallstones. Bibasilar atelectasis. Electronically Signed: Reilly Camarillo MD at 8:37 EST , Treatment and Re-Evaluation :: CBC reveals normal white count at 10.8 with a hemoglobin of 12.3. Chemistry studies significant for BUN of 41. It appears her baseline BUN is around 20. LFTs unremarkable. Lipase normal at 30. Urinalysis reveals 4+ bacteria with 5- 10 white cells. Leukocyte Estrace is only 25 and no nitrites. This will be sent for culture. Stool guaiac is performed and is negative. CT scan with IV contrast reveals a large hiatal hernia. Findings suggestive of gallstones. Bibasilar atelectasis noted. Patient is already on pantoprazole. I spoke with GI as I do have concern for upper GI bleed with her dark vomitus and elevated BUN. He does recommend bringing her in to switch to IV PPI every 12 hours. He recommends giving Haldol 5 mg IV x 1 and Ativan 0.5 mg with 500 mL of lactated Ringer's. He is concerned that anything given by mouth will take too long to absorb given her hiatal hernia. Patient be given IV pantoprazole here. I will speak with hospitalist for admission. Discharge Plan Triage Chief Complaint: Nausea/Vomiting ED Provider: Verna Vasquez Dx/Rx/DC Orders Clinical Impression: Bacteriuria, Upper GI bleed Prescriptions: No Action baclofen 10 MG tablet 20 mg PO TID Ear Drops (carbamide peroxide) 15 ML drops 15 ml OT QWEEK Patient Comments: 2 DROPS EACH EAR ON THURSDAY AND THURSDAY Fosamax Plus D 1 EACH tablet 1 ea PO Q7D Patient Comments: ON MONDAYS chlorhexidine gluconate [Peridex] 15 ML mouthwash 15 ml MM BID cholecalciferol (vitamin D3) [Vitamin D3] 1,000 UNIT tablet 2,000 unit PO DAILY calcium carbonate-vitamin D3 [Oyster Shell Calcium-Vit D3] 1 EACH tablet 1 ea PO DAILY levetiracetam 500 MG tablet 500 mg PO BID triamterene-hydrochlorothiazid 1 EACH tablet 1 tab PO DAILY PRN (Reason: CLEMENTINE EDEMA) Triamcinolone 0.1% Cream [Kenalog] 1 APPLIC Tube 1 applic TOPICAL BID sertraline 25 mg Tablet 50 mg PO DAILY tolterodine 2 mg Capsule,Extended Release 24hr 2 mg PO DAILY Dupixent Pen See Rx Instructions .ROUTE .COMPLEX Rx Instructions: unsure of dose ondansetron 4 mg tablet,disintegrating 4 mg PO Q6H PRN (Reason: nausea and vomiting) Qty: 7 0RF pantoprazole 40 mg tablet,delayed release (DR/EC) 40 mg PO DAILY ondansetron 4 mg tablet,disintegrating 4 mg PO Q6H PRN (Reason: nausea and vomiting) Primary Care Provider: Griselda Robertson Referrals: Griselda Robertson MD [Primary Care Provider] - Disposition Disposition: Acute Care Hospital [facility]
[2023-02-19 07:57] LABS: Absolute Lymphocyte Count 1.83 X10^3/uL (0.83-4.51); Absolute Neutrophil Count 8.1 X10^3/uL (2.0-7.7); Basophil# 0.07 X10^3/uL; Basophil% 0.6 % (0-1); Eosinophil# 0.11 X10^3/uL; Hematocrit 38.1 % (37-47); Hemoglobin 12.3 g/dL (12.0-15.0); Lymphocyte # 1.83 X10^3/ul (0.83-4.51); Lymphocyte % 16.9 % (19-41); Mean Corp Hgb Conc 32.3 g/dL (32-36); Mean Corpuscular Hgb 28.5 pg (27.0-32.0); Mean Corpuscular Volume 88.2 fL (81-99); Mean Platelet Vol. 11.1 fl (6.2-12.0); Monocyte# 0.66 X10^3/uL; Monocyte% 6.1 % (0-10); NRBC Flagged by Analyzer 0 % (0-5); Neutrophil % 75.1 % (47-70); Platelet Count 295 K/mm3 (150-450); RBC Distribution Width CV 13.1 % (11.6-14.6); RBC Distribution Width SD 42.1 fl (35.1-43.9); Red Blood Count 4.32 M/mm3 (4.2-5.4); White Blood Count 10.8 K/mm3 (4.4-11.0)
--- OUTSIDE RECORDS SUMMARY | 2023-02-19 08:01 | XMS RPT_ITS | CCD ---
Author Name Unknown Address [address] [place] [address] Organization [facility] Care Team Providers Care Supervisor Inspecting Name Role Phone KENDAL LIANG Attending Unavailable JORGITO ROBERTSON Referring Unavailable JORGITO ROBERTSON Primary Care Unavailable Jorgito Robertson MD Primary Care Provider Kendal Liang MD Unavailable Jorgito Robertson MD Primary Care Provider Kendal Liang MD Unavailable [phone] Jorgito Robertson MD Primary Care Provider Kendal Liang MD Unavailable JORGITO ROBERTSON Primary Care Unavailable LASHAE VARGHESE Attending Unavailable TALAMPRYAN JORGITO Simón Primary Care Unavailable MED PEARSON Attending Unavailable TEQUILAAMPRYAN JORGITO D Primary Care Unavailable GERDA, BIBI Attending Unavailable TEQUILAAMPRYAN JORGITO Simón Primary Care Unavailable MED PEARSON Referring Unavailable TEQUILAAMPRYAN JORGITO Simón Primary Care Unavailable MED PEARSON Attending Unavailable KENDAL LIANG Attending Unavailable ADRIAN JORGITO D Primary Care Unavailable Allergies Allergy Classification Reported Allergen(s) Allergy Type Date of Onset Reaction(s) Facility (20 sources) Doxycycline; Translations: [DOXYCYCLINE] Drug Allergy 10-18-2019 [facility] Work Phone: Medications Current Medications Medication Drug Class(es) Dates Sig (Normalized) Sig (Original) acetaminophen 500 mg oral tablet (15 sources) End: 10-31-2021 take 1 tablet by mouth every eight hours as needed acetaminophen (TYLENOL) 500 mg tablet Take 500 mg by mouth every 8 hours as needed. 0 10/31/2021 Discontinued Completed/Discontinued Medications Medication Drug Class(es) Dates Sig (Normalized) Sig (Original) baclofen 20 mg oral tablet (20 sources) gamma-Aminobutyri c Acid-ergic Agonist Start: 04-05-2021 End: 02-09-2023 take 1 tablet by mouth three times daily baclofen 20 mg tablet TAKE 1 TABLET BY MOUTH THREE TIMES DAILY (8AM,4PM,8PM) 270 tablet 3 12/25/2022 Active Problems Active Problems Problem Classification Problem Date Documented Date Episodic/Chronic Administrative/social admission (2 sources) Mobility poor; Translations: [Other reduced mobility] Episodic Epilepsy; convulsions (20 sources) Localization-related epilepsy; Translations: [Localization-related (focal) (partial) symptomatic epilepsy and epileptic syndromes with simple partial seizures, not intractable, without status epilepticus] 02-22-2015 Chronic Esophageal disorders (20 sources) Gastroesophageal reflux disease; Translations: [Gastro-esophageal reflux disease without esophagitis] 05-21-2006 Chronic Immunizations and screening for infectious disease (8 sources) Patient encounter status; Translations: [Encounter for immunization] Onset: 11-20-2022 Episodic Malaise and fatigue (2 sources) Physical deconditioning; Translations: [Other malaise] Episodic Nutritional deficiencies (20 sources) Vitamin D deficiency; Translations: [Vitamin D deficiency, unspecified] Onset: 07-07-2012 07-07-2012 Chronic Other aftercare (1 source) H/O: anticonvulsant therapy; Translations: [Encounter for therapeutic drug level monitoring] Episodic Other aftercare (1 source) Encounter for therapeutic drug level monitoring; Translations: [Encounter for therapeutic drug monitoring] Onset: 02-03-2023 Episodic Other bone disease and musculoskeletal deformities (20 sources) Disorder of skeletal system; Translations: [Disorder of bone, unspecified] 05-21-2006 Episodic Other inflammatory condition of skin (20 sources) Pemphigus; Translations: [Pemphigus, unspecified] Onset: 10-21-2019 10-21-2019 Chronic Other lower respiratory disease (1 source) Cough; Translations: [Acute cough] Episodic Other screening for suspected conditions (not mental disorders or infectious disease) (3 sources) Oxygen saturation below reference range; Translations: [Abnormal blood-gas level] Onset: 05-28-2022 Episodic Paralysis (20 sources) Cerebral palsy; Translations: [Cerebral palsy, unspecified] 04-17-2015 Chronic Residual codes; unclassified (1 source) H/O: urinary disease; Translations: [Personal history of other specified conditions] Episodic Unclassified (2 sources) Unspecified convulsions Onset: 04-07-2018 Unclassified (1 source) Acute cough; Translations: [Acute cough] Onset: 05-28-2022 Viral infection (1 source) Disease caused by 2019-nCoV; Translations: [COVID-19] Episodic Viral infection (1 source) COVID-19; Translations: [COVID] Onset: 05-28-2022 Past or Other Problems Problem Classification Problem Date Documented Date Episodic/Chronic Nonmalignant breast conditions (20 sources) Solitary cyst of breast; Translations: [Solitary cyst of unspecified breast] Onset: 02-18-2006 02-18-2006 Episodic Other connective tissue disease (20 sources) Other symptoms and signs involving the nervous system; Translations: [Other symptoms involving nervous and musculoskeletal systems] Onset: 07-12-2012 07-12-2012 Episodic Other nervous system disorders (20 sources) Abnormal gait; Translations: [Unspecified abnormalities of gait and mobility] Onset: 04-17-2015 04-17-2015 Episodic Results Test Name Value Interpretation Reference Range Facil ity Vital Signs Date Time Vital Sign Value Performing Clinician Deepali bee 08-01-2022 10:05-0400 Body temperature 97.59 [degF] Med Pearson APRN.CNP Work Phone: [facility] 08-01-2022 10:05-0400 Body weight 93.44 kg Med Pearson APRN.AUTOMOTIVE ENGINEERING TEACHER Work Phone: [facility] 08-01-2022 10:05-0400 Diastolic blood pressure 82 mm[Hg] Med Pearson APRN.AUTOMOTIVE ENGINEERING TEACHER Work Phone: [facility] 08-01-2022 10:05-0400 Heart rate 78 /min Med Pearson APRN.AUTOMOTIVE ENGINEERING TEACHER Work Phone: [facility] 08-01-2022 10:05-0400 Respiratory rate 16 /min Med Pearson APRN.AUTOMOTIVE ENGINEERING TEACHER Work Phone: [facility] 08-01-2022 10:05-0400 SaO2% (BldA) [Mass fraction] 99 % Med Gregoryr WORK FROM HOME.AUTOMOTIVE ENGINEERING TEACHER Work Phone: [facility] 08-01-2022 10:05-0400 Systolic blood pressure 132 mm[Hg] Med Gregoryr WORK FROM HOME.AUTOMOTIVE ENGINEERING TEACHER Work Phone: [facility] 10-31-2021 07:43-0400 Diastolic blood pressure 74 mm[Hg] Lashae Painters WORK FROM HOME.GAMBLING BROKER Work Phone: [facility] 10-31-2021 07:43-0400 Heart rate 80 /min Lashae Painters WORK FROM HOME.[employer]ING BROKER Work Phone: [facility] 10-31-2021 07:43-0400 Respiratory rate 16 /min Lashae Painters WORK FROM HOME.[employer]ING BROKER Work Phone: [facility] 10-31-2021 07:43-0400 Systolic blood pressure 122 mm[Hg] Lashae Painters WORK FROM HOME.G[employer]BLING BROKER Work Phone: [facility] Encounters Encounter Date Encounter Type Care Provider Facility Start: 02-03-2023 End: 02-04-2023 ambulatory JORGITO ROBERTSON Facility:[facility] Start: 12-26-2022 Telephone encounter Jorgito gibbs MD Work Phone: Internal [facility] Procedures Date Procedure Procedure Detail Performing Clinician Start: 10-31-2021 INFLUENZA SEASONAL QUADRIVALENT HIGH DOSE AGE 65+ Lashaecachorro Painters WORK FROM HOME.G[employer]BLING BROKER Work Phone: Start: 10-31-2021 Adult depression scr eening assessment Lashae Varghese WORK FROM HOME.[employer]BLING BROKER Work Phone: Start: 10-31-2021 Lipid 1996 panel - S janis or Plasma Kendal Liang MD Work Phone: Start: 07-22-2019 Adult depression scr eening assessment Jorgito Robertson MD Work Phone: Start: 07-21-2019 Mammography Jorgito wilson MD Work Phone: Start: 06-14-2018 Colonoscopy Jorgito wilson MD Work Phone: Plan of Treatment Date Care Activity Detail Author Start: 06-14-2028 Colonoscopy COLONOSCOPY [facility] Start: 06-14-2028 COLORECTAL CANCER SCREENING COLORECTAL CANCER SCREENING [facility] Start: 10-31-2026 Lipid 1996 panel - Serum or Plasma Lipid Screening [facility] Start: 10-31-2026 LIPID SCREEN LIPID SCREEN [facility] Start: 10-31-2024 DIABETES SCREEN DIABETES SCREEN [facility] Start: 10-31-2024 Diabetes Screening Diabetes Screenin g [facility] Start: 03-15-2023 DIABETES SCREEN DIABETES SCREEN [facility] Start: 01-09-2023 End: 08-02-2023 25-hydroxyvitamin D3 [Mass/volume] in Serum or Plasma VITAMIN D 25 HYDROXY Lab Routine Vitamin D deficiency Encounter for therapeutic drug monitoring Expected: 01/09/2023, Expires: 08/02/2023 [facility] Work Phone: Immunizations Immunization Date Immunization Notes Care Provider Fa [facility] 11-20-2022 influenza (HD-IIV4) vaccine, age 65+ yr, high dose, quadrivalent, PF (FLUZONE HIGH-DOSE) Jorgito Robertson MD Work Phone: [facility] Work Phone: 10-31-2021 influenza, high-dose , quadrivalent vaccine (FLUZONE HIGH DOSE QUADRIVALENT) Lashae Varghese APRN.[facility] Work Phone: [facility] Work Phone: 10-31-2021 influenza virus vaccine, unspecified formulation Kendal Liang MD Work Phone: [facility] 11-29-2019 influenza, high-dose , quadrivalent vaccine (FLUZONE HIGH DOSE QUADRIVALENT) Jorgito Robertson MD Work Phone: [facility] 11-24-2018 influenza, high dose seasonal, preservative-free Jorgito Robertson MD Work Phone: [facility] Work Phone: 11-24-2018 pneumococcal conjuga te vaccine, 13 valent Jorgito Robertson MD Work Phone: [facility] Work Phone: 01-27-2018 Influenza, injectabl e, [facility]in [place] Canine Kidney, preservative free, quadrivalent Jorgito Robertson MD Work Phone: [facility] Work Phone: 01-27-2018 influenza, seasonal, injectable Jorgito Robertson MD Work Phone: [facility] Work Phone: 12-31-2016 influenza, seasonal, injectable Jorgito Robertson MD Work Phone: [facility] Work Phone: 12-31-2016 influenza, seasonal, injectable, preservative free Jorgito Robertson MD Work Phone: [facility] Work Phone: 10-30-2015 influenza, injectabl e, quadrivalent, contains preservative Jorgito Robertson MD Work Phone: [facility] Work Phone: 11-27-2014 influenza, seasonal, injectable Med Michel WORK FROM HOME.AUTOMOTIVE ENGINEERING TEACHER Work Phone: [facility] Work Phone: 11-27-2014 influenza, seasonal, injectable, preservative free Jorgito Robertson MD Work Phone: [facility] Work Phone: 10-25-2014 influenza, injectabl e, quadrivalent, preservative free Jorgito Robertson MD Work Phone: [facility] 01-19-2014 influenza, seasonal, injectable Jorgito Robertson MD Work Phone: [facility] Work Phone: 11-21-2011 influenza virus vaccine, unspecified formulation Jorgito Robertson MD Work Phone: [facility] Work Phone: 05-26-2011 tetanus toxoid, reduced diphtheria toxoid, and acellular pertussis vaccine, adsorbed Jorgito Robertson MD Work Phone: [facility] 11-16-2010 influenza virus vaccine, unspecified formulation Jorgito Robertson MD Work Phone: [facility] Work Phone: 11-10-2008 influenza virus vaccine, unspecified formulation Jorgito Robertson MD Work Phone: [facility] 12-16-2007 influenza virus vaccine, unspecified formulation Jorgito Robertson MD Work Phone: [facility] Work Phone: 12-09-2006 influenza virus vaccine, unspecified formulation Jorgito Robertson MD Work Phone: [facility] Work Phone: NEGATED: Highlighted row has not occurred!11-20-2022 COVID-19 vaccine, age 12+ yr, bivalent (PFIZER-BIONTECH) Jorgito Robertson MD Work Phone: [facility] Work Phone: NEGATED: Highlighted row has not occurred!11-20-2022 pneumococcal (PCV20) vaccine, 20 valent (PREVNAR 20) Jorgito Robertson MD Work Phone: [facility] Work Phone: NEGATED: Highlighted row has not occurred!10-31-2021 COVID-19 booster vaccine, age 12+ yr, bivalent (PFIZER-BIONTECH) Lashae Varghese WORK FROM HOME.[facility] Work Phone: [facility] Work Phone: NEGATED: Highlighted row has not occurred!10-31-2021 pneumococcal (PCV20) vaccine, 20 valent (PREVNAR 20) Lashae Varghese APRN.[facility] Work Phone: [facility] Work Phone: Payers Date Payer Category Payer Medicaid [id number] 2008 Medicaid [place] [id number] 2008-Present [phone] [address] [place] [address] Medicaid [id number] 2008 Medicaid MEDICAID [facility] MEDICAID [id number] 2008-Present [phone] [address] [place] [address] Medicaid [id number] 1994 Medicare [id number] 1994 Medicare MEDICARE MEDICAR E A AND B [id number] 1994-Present [phone] [address] [address] [place] [address] Medicare [id number] 1994 Medicare MEDICARE MEDICAR E A AND B [id number] 1994-Present [phone] [place] [address] Medicare [id number] 1955 Unknown [id number] Social History Date Type Detail Facility Start: 10-31-2021 Tobacco smoking stat [facility] Never smoked tobacco [facility] Start: 04-05-2021 End: 11-20-2022 Alcohol intake Current non-drinker of alcohol (finding) [facility] Start: 07-22-2019 End: 11-29-2019 History SDOH Alcohol Frequency 1 [facility] Start: 07-22-2019 History SDOH Social Connections Membership 2 [facility] Start: 07-22-2019 History SDOH Social Connections Living 7 [facility] Start: 07-22-2019 End: 05-28-2022 History SDOH Physical Activity DPW 0 [facility] Start: 07-22-2019 History SDOH Financial 5 [facility] Start: 07-22-2019 Education 12 [facility] Start: 1955 Sex Assigned At Not on file [facility] Start: 03-06-2021 End: 10-31-2021 Exposure to SARS-CoV-2 (event) Not sure [facility] Start: 10-31-2021 Tobacco use and exposure Smoke less tobacco non-user [facility] Work Phone: Start: 10-31-2021 Tobacco Comment No smokers in current home. Has not lived with smokers. [facility] Start: 05-28-2022 History SDOH Physica l Activity MPS 98 [facility] Start: 05-28-2022 History SDOH Housing Unable to Pay 3 [facility] Start: 05-28-2022 End: 11-20-2022 History of Social function [facility] Start: 05-28-2022 End: 11-20-2022 Social connection and isolation panel [facility] In a typical week, h ow many times do you talk on the telephone with family, friends, or neighbors? Patient refused [facility] Are you now , , , , never or living with a partner? Refused [facility] How often to you hav e a drink containing alcohol? Never [facility] (I/We) worried wheth er (my/our) food would run out before (I/we) got money to buy more. Never true [facility] Clinical Notes 08-01-2019 to 02-03-2023 Telephone Encounter - Shellie Velazquez RN - 12/26/2022 4:28 PM ESTTelephone Encounter - Veronica Verdin LPN - 12/26/2022 1:58 PM Kendal Gomez MD - 12/25/2022 4:32 PM EST Note Date & Type Note Facility 02-03-2023 Note HNO ID: [id number] Author: Med Pearson APRN.AUTOMOTIVE ENGINEERING TEACHER Service: ? Author Type: Nurse Practitioner Type: Progress Notes Filed: 02/03/2023 9:51 AM Note Text: Nicholas Means is a 67 year old female here for a Medicare wellness visit. Medicare Health Risk Assessment General Health Pretty good Exercise: Minutes/Day Patient refused Exercise: Days/Week 0 days Alcohol: Daily Use N/a Alcohol: Drinks/Day N/a Alcohol: 6 or more drinks N/a Feel off balance Wheel chair dependent Concerns: Teeth/Dentures No, working on getting in with dentist Concerns: Sexual function N/a Troubled by feelings Frequency: Eating healthy diet ADLs requiring help yes Safety precautions in home/vehicle yes Smoke, vape, chews tobacco no Difficulty hearing no Difficulty seeing no Current Providers Specialists: I have reviewed specialist-related care of the patient in the medical record. Current care team: Patient Care Team: Jorgito Robertson MD as PCP - Kendal Dumont MD as Referring (Neurology) Outside specialists seen: Dental, eye doctor Medical/Family history review Reviewed and updated problem list, medical/surgical/family/social history, medications, and allergies. Opioid use review Opioid Medications (last 90 days) Some values may be hidden. Unless noted otherwise, only the newest values recorded on each date are displayed. Opioid Medications No data to display. Depression screening Depression Screening PHQ-2 Score 08/01/2022 0 Depression screening tool completed and reviewed. Based on score and interview, patient is not at risk for depression. Screening tool discussed with patient, and I recommended no further intervention at this time. Cognitive screening Mini Cog Score: 0 Cognitive screening reviewed and patient unable to complete due to impairment from chronic conditions. Functional Observation Was the patient's timed Up AND Go test unsteady or ? 12 seconds? Not able to assess Advance Care Planning Surrogate decision maker and/or advance care plan documented POA paperwork on file with [place]. Measurements BP 138/76 Pulse 60 Resp 12 Ht 5' 8 (1.73m) Wt 206 lb (93.4kg) BMI 31.33 kg/(m2). Additional screenings: No results found. SUBJECTIVE Nicholas Means is a 67 year old female here today for a medicare wellness and also had the below things discussed and addressed: Chief Complaint Patient presents with: Medicare Wellness Exam: eye doctor is [facility] [place], coughing more at night HPI Nicholas Means is a 67 year old female. Accompanied by caregivers. In wheel chair. Limited mobility. Here today for medicare wellness. Saw Lashae 11/20. History of cerebral palsy, epilepsy, wheel chair dependent. Seen with neuro virtually 12/25. Doing well on Keppra. Some increased tremors but manageable. Cough at night, helps if they prop her up. No issues with reflux but on omeprazole. Weight is stable. Cough is not productive. Some anxiety. No depression. Picking more at arms. Her medications were reviewed today and her list is now up to date. Medications Current Outpatient Medications Medication Sig sertraline (ZOLOFT) 50 mg tablet Take 1 tablet by mouth once daily. pantoprazole DR (PROTONIX) 40 mg tablet Take 1 tablet by mouth daily before breakfast. Take on empty stomach, 1/2 hr before meal. levETIRAcetam (KEPPRA) 500 mg tablet Take 1 tablet by mouth two times a day. baclofen 20 mg tablet TAKE 1 TABLET BY MOUTH THREE TIMES DAILY (8AM,4PM,8PM) [START ON 02/04/2023] alendronate (FOSAMAX) 70 mg tablet TAKE 1 TABLET BY MOUTH ONCE WEEKLY ON THURSDAY WITH FULL GLASS OF WATER ON AN EMPTY STOMACH DO NOT LIE DOWN FOR 30 MINUTES (7AM) ceramide 1,3,6-II/B3/hyalur ac (CERAVE PM TOPICAL) Apply to affected area. ondansetron (ZOFRAN) 4 mg tablet Take by mouth every 8 hours as needed for nausea/vomiting. triamterene-hydroCHLOROthiazide (MAXZIDE-25) 37.5-25 mg per tablet DAILY calcium-cholecalciferol, D3, ([place] CALCIUM-VITAMIN D) 250 mg-3.125 mcg (125 unit) per tablet TAKE (1) TABLET BY MOUTH ONCE DAILY. tolterodine ER (DETROL LA) 2 mg 24 hr capsule TAKE 1 CAPSULE BY MOUTH ONCE EVERY DAY (8AM) cholecalciferol (VITAMIN D3) 50 mcg (2,000 unit) tablet Take 1 tablet by mouth once daily. ciclopirox (LOPROX) 0.77 % cream Apply to affected area twice daily. Treat for additional week after rash on feet resolves (Patient not taking: Reported on 11/20/2022) triamcinolone acetonide (KENALOG) 0.1 % cream Apply 1 application to affected area twice daily as needed (rash on feet or legs up to 2 weeks). Apply sparingly to area for rash/itching on left leg. (Patient not taking: Reported on 11/20/2022) guaiFENesin (ROBITUSSIN) 100 mg/5 mL syrup Take 10 mL by mouth every 4 hours as needed for cough. Ceramides 1,3,6-11 (CERAVE) lotn Apply to affected area once daily. Comp Stocking,Knee,Regular,Sml (T.E.D. ANTI-EMBOLISM (more content not included)... [facility] 12-26-2022 Miscellaneous Notes Call placed to Henri and verbal order given for plan of care as requested for 1 wk 4. Shellie Velazquez RN Attempted to reach Henri with no answer and mailbox is full and unable to leave a message. [facility] OT Henribrandi Hayes OT with [employer] calls to report patient was seen today for reassessment. Henri would like to continue OT services for an additional weekly visit x 4 weeks. Requesting verbal order be phoned to [phone]. Shellie Velazquez RN documented in this encounter [facility] 12-25-2022 Note HNO ID: [id number] Author: Kendal Liang MD Service: ? Author Type: Physician Type: Progress Notes Filed: 12/25/2022 4:45 PM Note Text: VIRTUAL VISIT PROGRESS NOTE This is a virtual visit. It required patient-provider interaction for the medical decision making as documented below. The patient consents to a virtual visit. I have communicated my name and active licensure. The patient's identity and physical location were verified at the time of this visit. Either the patient or their legal career representative has been informed of the risks and benefits of -- and alternatives to -- treatment through a remote evaluation and consents to proceed with the evaluation remotely. CC: cognitive impairment, spacticity, seizures. Follow up she joins with Elsie, her manager nc. S: She is doing well No seizures She gets PT/OT to work w/ her hands. A lot of trouble feeding herself d/t spasticity and tremor; she is now unable to feed herself due to severe shaking of her arms. She lives in a [facility] Medications: Assessment/Plan: 1. Hx based on medical records of seizures. No known seizure episodes in > 5 years, was on dilantin, discontinued d/t rash. Now on keppra 500 mg bid, tolerating well with no seizure episodes, no adverse effects. Continue keppra 500 mg bid. 2. 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 Continue baclofen 20 mg tid, In past discontinued Artane due to complaints of cognitive impairment. At last in person visit she had flexion contracture of bilateral hands, poor passive range of motion, continue PT She has trouble feeding herself d/t poor motor control; which is likely mostly impacted by spasticity rather than tremor. As such, it would not likely respond to tremor medication, and would be best to avoid any sedating medications. 3. Cognitive impairment; Discontinued Artane, baclofen dose reduced from 30 mg tid to 20 mg tid, labs unremarkable, CT brain unremarkable. Overall symptoms improved since reducing dose of spasticity medications. RTC 1 year. [facility] 12-25-2022 History of Presen t illness Narrative VIRTUAL VISIT PROGRESS NOTE This is a virtual visit. It required patient-provider interaction for the medical decision making as documented below. The patient consents to a virtual visit. I have communicated my name and active licensure. The patient's identity and physical location were verified at the time of this visit. Either the patient or their legal career representative has been informed of the risks and benefits of -- and alternatives to -- treatment through a remote evaluation and consents to proceed with the evaluation remotely. CC: cognitive impairment, spacticity, seizures. Follow up she joins with Elsie, her manager nc. S: She is doing well No seizures She gets PT/OT to work w/ her hands. A lot of trouble feeding herself d/t spasticity and tremor; she is now unable to feed herself due to severe shaking of her arms. She lives in a [facility] Medications: Assessment/Plan: 1. Hx based on medical records of seizures. No known seizure episodes in > 5 years, was on dilantin, discontinued d/t rash. Now on keppra 500 mg bid, tolerating well with no seizure episodes, no adverse effects. Continue keppra 500 mg bid. 2. 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 Continue baclofen 20 mg tid, In past discontinued Artane due to complaints of cognitive impairment. At last in person visit she had flexion contracture of bilateral hands, poor passive range of motion, continue PT She has trouble feeding herself d/t poor motor control; which is likely mostly impacted by spasticity rather than tremor. As such, it would not likely respond to tremor medication, and would be best to avoid any sedating medications. 3. Cognitive impairment; Discontinued Artane, baclofen dose reduced from 30 mg tid to 20 mg tid, labs unremarkable, CT brain unremarkable. Overall symptoms improved since reducing dose of spasticity medications. RTC 1 year. documented in this encounter [facility] 12-15-2022 Miscellaneous Notes VIMAL Álvarez with [employer] notified of providers message and verbalized understanding. OK [facility] OT. VIMAL Álvarez with [employer] calling. Reports pt was seen 12/13/22. Asking for approval of orders to see patient 1 time for 2 weeks for OT. Please call Henri back with approval of order, . Rosmery Quiñones RN documented in this encounter [facility] 12-13-2022 Miscellaneous Notes Home care Certification Form 485 received from [facility]. For cert dates 10/29/22-12/27/2022 that were signed on . Recertification Patient's home health 485 form / care plan for stated certification period reviewed and signed. Relevant medical records were reviewed. No changes were indicated documented in this encounter [facility] 12-08-2022 Miscellaneous Notes Patient has been identified by name and date of : Yes Patient phones for refill(s): Requested Prescriptions Pending Prescriptions Disp Refills alendronate (FOSAMAX) 70 mg tablet [Pharmacy Med Name: Alendronate Sodium 70 MG Tablet] 4 tablet 11 Sig: TAKE 1 TABLET BY MOUTH ONCE WEEKLY ON THURSDAY WITH FULL GLASS OF WATER ON AN EMPTY STOMACH DO NOT LIE DOWN FOR 30 MINUTES (7AM) omeprazole (PRILOSEC) 40 mg capsule [Pharmacy Med Name: Omeprazole 40 MG Capsule delayed release] 60 capsule 11 Sig: TAKE 1 CAPSULE BY MOUTH TWICE DAILY (8AM,4PM) Date of last office visit in primary care: 11/20/2022 Date of next office visit in primary care: 02/03/2023 Last 2 Encounter Wt Readings: Date: Wt: 08/01/2022 93.4 kg (206 lb) 09/04/2020 86.2 kg (190 lb) Previous labs/tests for medication: Not applicable Please advise. Thank you. Estrellita Maldonado LPN. documented in this encounter [facility] 12-08-2022 Miscellaneous Notes Called Mallory and notified of the OK per Lashae Varghese for delay of care. OK VIMAL Tejada @ [facility] calling to report pt had a missed visit last week. Mallory asking if ok for delay of care approval to see pt this week? Please call Mallory with response at [phone]. Thank you. documented in this encounter [facility] 12-08-2022 Miscellaneous Notes Tanner PEARSON called and is notified of providers message. He voices understanding. Yudi Richards, RN Second attempt to reach LILI Hart, by phone with no answer. Left VM with patient name asking to return call to office. KATIA Martinez TC back to LILI Bauer and line rings busy. Unable to leave VM. Please try again later. KATIA Martinez Noted, agree, can give verbal ok if needed. Tanner PEARSON calling, he would like to increase patients care. He will see her 2 times a week for 4 weeks. They will work on transfer, balance, gait, and strength. documented in this encounter [facility] 12-01-2022 Miscellaneous Notes Elsie aware of same. Will treat with Ivermectin, sent e-script to short term pharmacy. clintonie with [place] is calling to report house mate is getting treated for scabies. Elsie is requesting rx for scabies tx be sent to pharmacy. Call Elsie when rx is sent. Ani Muñoz LPN documented in this encounter [facility] 11-20-2022 Note HNO ID: [id number] Author: Lashae Varghese APRN.[employer] Service: ? Author Type: Nurse Specialist Type: Progress Notes Filed: 11/20/2022 10:20 AM Note Text: SUBJECTIVE: Covid-19 Vaccine(1) Never done Shingrix Vaccine(1 of 2) Never done Pneumococcal Vaccine: 65+(2 - PPSV23 or PCV20) due on 11/25/2019 Mammogram Screening due on 07/20/2020 DTaP,Tdap,Td Vaccine(2 - Td or Tdap) due on 05/25/2021 Influenza Vaccine(1) due on 10/10/2022 HPI Nicholas Means is a 67 year old female. Past medical history is significant for cerebral palsy, focal epilepsy, tremors, weakness of arms and legs, eversion of left foot / AFO, abnormality of gait, wheelchair dependent, GERD, osteopenia, incontinence and bullous pemphigus. Neurologist Kendal Liang MD seen for cognitive impairment, spacticity, seizures, last visit 04/05/2021. Noted PT/OT for hands. Baclofen for spasticity. Continued on Keppras for seizrues unchanged. Discontinued artane due to cognitive impairment. CT brain noted unremarkable. Follow up 1 yr.advised, not yet scheduled. Presents with caregivers that provide HPI. Indicates that she was taking Dupixent for bullous pemphigus, dermatology provider at [facility] thought that this may be causing backache and headache for her which she was experiencing so discontinued. Last refill was in September. Currently notes no longer having headache. Back pain is resolving. No known recurrence of bullous pemphigus off of the medication. She has an upcoming appointment with dermatology to discuss additional treatments. She has continued with home health care provider since last seen, PT/OT providers. She has incontinence and routinely uses incontinence supplies. GERD/hiatal hernia: stable Osteopenia: taking supplemental vitamin D and calcium Urinary incontinence: stable Mood stable, no voiced SI, HI No recent seizure. Continues in motorized wheelchair. Review of Systems Constitutional: Negative. Musculoskeletal: Positive for gait problem. Negative for back pain. Neurological: Positive for tremors, speech difficulty and weakness. Negative for seizures and headaches. Objective BP 138/82 Pulse 78 Resp 16 Physical Exam Vitals and nursing note reviewed. Constitutional: Appearance: Normal appearance. HENT: Head: Normocephalic and atraumatic. Eyes: General: Lids are normal. Conjunctiva/sclera: Conjunctivae normal. Cardiovascular: Rate and Rhythm: Normal rate and regular rhythm. Heart sounds: Normal heart sounds. Pulmonary: Effort: Pulmonary effort is normal. Breath sounds: Normal breath sounds. Abdominal: General: Bowel sounds are normal. Palpations: Abdomen is soft. Musculoskeletal: Comments: Seated in wheelchair. Contractures both hands, weakness right arm greater than left arm, right arm tremor, weakness right and left leg, foot orthotic left foot /left foot eversion Skin: General: Skin is warm and dry. Neurological: Mental Status: She is alert. Mental status is at baseline. Motor: Weakness present. Coordination: Coordination abnormal. Gait: Gait abnormal. ALLERGIES Allergen Reactions Doxycycline Hives Medications alendronate (FOSAMAX) 70 mg tablet TAKE 1 TABLET BY MOUTH ONCE A WEEK W/A FULL GLASS OF WATER ON AN EMPTY STOMACH-DO NOT LIE DOWN FOR 30 MINUTES. (MONDAYS) baclofen 20 mg tablet TAKE 1 TABLET BY MOUTH THREE TIMES DAILY (8AM,4PM,8PM) calcium-cholecalciferol, D3, (OYSTER SHELL CALCIUM-VITAMIN D) 250 mg-3.125 mcg (125 unit) per tablet TAKE (1) TABLET BY MOUTH ONCE DAILY. carbamide peroxide (DEBROX) 6.5 % otic solution Instill 2 drops into both ears once daily on Thursday and Thursday ceramide 1,3,6-II/B3/hyalur ac (CERAVE PM TOPICAL) Apply to affected area. Ceramides 1,3,6-11 (CERAVE) lotn Apply to affected area once daily. Chlorhexidine Gluconate 0.12 % solution Use 15 mL as instructed twice daily. cholecalciferol (VITAMIN D3) 50 mcg (2,000 unit) tablet Take 1 tablet by mouth once daily. ciclopirox (LOPROX) 0.77 % cream Apply to affected area twice daily. Treat for additional week after rash on feet resolves (Patient not taking: Reported on 11/20/2022) Comp Stocking,Knee,Regular,Sml (T.E.D. ANTI-EMBOLISM STOCKING) pair, wear daily COMPOUNDED PRESCRIPTION Bilateral compression stockings: knee-high, closed toe, 15-20wt. Dx: edema COMPRESSION HOSIERY KNEE LENGTH, AD, 18-30 MMHG once daily. Diaper,Brief, Adult,Disposable (DEPEND FIT-FLEX UNDERWEAR) 1 Box at bedtime as needed (one depends at bedtime as needed for urinary incontinence). DUPIXENT SYRINGE 300 mg/2 mL injection every 2 weeks. guaiFENesin (ROBITUSSIN) 100 mg/5 mL syrup Take 10 mL by mouth every 4 hours as needed for cough. (Patient not taking: Reported on 11/20/2022) levETIRAcetam (KEPPRA) 500 mg tablet TAKE 1 TABLET BY MOUTH TWICE DAILY (8AM,8PM) omeprazole (PRILOSEC) 40 mg capsule Take 1 capsule by mouth twice daily. ondansetron (ZOFRAN) (more content not included)... [facility] 11-13-2022 Miscellaneous Notes Spoke to Caregiver, Patient needs 90 day supply sent to pharmacy. Patient has been identified by name and date of : Yes, Patient phones for refill(s): Requested Prescriptions Pending Prescriptions Disp Refills tolterodine ER (DETROL LA) 2 mg 24 hr capsule [Pharmacy Med Name: Tolterodine Tartrate ER 2 MG Capsule extended release 24 hr] 90 capsule 3 Sig: TAKE 1 CAPSULE BY MOUTH ONCE EVERY DAY (8AM) Date of last office visit in primary care: 08/01/2022 Appt: 11/20/2022 Last 2 Encounter Wt Readings: Date: Wt: 08/01/2022 93.4 kg (206 lb) 09/04/2020 86.2 kg (190 lb) Previous labs/tests for medication: Not applicable Please advise. Thank you. Estrellita Maldonado LPN documented in this encounter [facility] 11-12-2022 Miscellaneous Notes LMOM for caregiver to call the office back to schedule patient for follow-up apt. Spoke to caregiver and will call back in 1 hour to schedule apt. 3 month supply refilled, patient needs follow up for more refills, please get her scheduled for follow up She is 8 months overdue for follow up, can you get her scheduled with Dr. Liang and I can fill to her appointment? Thanks RONY:04/05/21 documented in this encounter [facility] 11-03-2022 Miscellaneous Notes Attempted to reach Mallory with no answer and unable to leave a message due to mailbox being full. Note delaying care, okay for OT VIMAL Tejada @ [facility] calling for verbal okay for delay in start of care x two weeks. She was on vacation. She will see patient this week. Her ph # [phone]. Martha Dixon RN documented in this encounter [facility] 09-29-2022 Miscellaneous Notes Mallory was given providers message and verbalized understanding. OK for [facility] OT Mallory P OT calling she did re-revaluation of patient Thursday (09/22) and asking for verbal orders for plan of care, for 1 visit weekly for 4 weeks. Please advise documented in this encounter [facility] 08-27-2022 Miscellaneous Notes Okayed Last Office Visit: 08/01/2022 Future Office Visit: 02/03/2023 Requested Prescriptions Pending Prescriptions Disp Refills sertraline (ZOLOFT) 25 mg tablet 30 tablet 11 Sig: Take 1 tablet by mouth once daily. Date of Last Labs: 10/31/2021 documented in this encounter [facility] 08-27-2022 Miscellaneous Notes Home care Certification Form 485 received from [facility]. For cert dates 07/01/2022-08/29/2022 that were signed on 07/29/2022. Recertification Patient's home health 485 form / care plan for stated certification period reviewed and signed. Relevant medical records were reviewed. No changes were indicated documented in this encounter [facility] 08-01-2022 Note HNO ID: [id number] Author: Med Pearson APRN.[facility] Service: ? Author Type: Nurse Practitioner Type: Progress Notes Filed: 08/01/2022 12:17 PM Note Text: VIRTUAL VISIT PROGRESS NOTE This is an encounter initiated for an established patient, parent or guardian not originating from a related Evaluation AND Management service provided within the previous 7 days nor leading to an Evaluation AND Management service or procedure within the next 24 hours or soonest available appointment. This is a virtual visit. It required patient-provider interaction for the medical decision making as documented below. Patient has consented to this encounter. Persons Present: patient and patient's caregiver Data Reviewed: Most recent notes, labs, meds Patient has consented to patient-provider interaction via telephone/virtual visit for the medical decision making documented in this telephone/virtual visit encounter. Total Time Spent: 35 minutes SUBJECTIVE Nicholas Means is a 67 year old female here today for a check up on her medical problems. Chief Complaint Patient presents with: Follow Up HPI Adenike presents today for routine follow up via a virtual visit on my chart per the [employer] platform. She is an established patient of Jorgito Robertson MD. Her visit today is being done with assistance from her clinical manager home care Monse due to limited mobility for Adenike. Vitals for visit: Blood pressure this am 132/80, t 97.6, p 78, R16, wt 206 lbs, pulse ox 99%. Appetite is good, no issues with foods/eating or drinking. Sleeping well. No constipation or diarrhea. No pain. Brother is medical POA. No other specialists. No seizure activity. Taking meds with out issues. Needs a refill on vitamin D. Depression Screening 10/22/2016 08/24/2018 07/22/2019 08/01/2022 PHQ-2 Score 0 0 0 0 Depression screening tool completed and reviewed. Based on score and interview, patient is not at risk for depression. Screening tool discussed with patient, and I recommended no further intervention at this time. Her medications were reviewed today and her list is now up to date. Medications Current Outpatient Medications Medication Sig cholecalciferol (VITAMIN D3) 50 mcg (2,000 unit) tablet Take 1 tablet by mouth once daily. ciclopirox (LOPROX) 0.77 % cream Apply to affected area twice daily. Treat for additional week after rash on feet resolves triamcinolone acetonide (KENALOG) 0.1 % cream Apply 1 application to affected area twice daily as needed (rash on feet or legs up to 2 weeks). Apply sparingly to area for rash/itching on left leg. guaiFENesin (ROBITUSSIN) 100 mg/5 mL syrup Take 10 mL by mouth every 4 hours as needed for cough. omeprazole (PRILOSEC) 40 mg capsule Take 1 capsule by mouth twice daily. tolterodine ER (DETROL LA) 2 mg 24 hr capsule Take 1 capsule by mouth once daily. alendronate (FOSAMAX) 70 mg tablet TAKE 1 TABLET BY MOUTH ONCE A WEEK W/A FULL GLASS OF WATER ON AN EMPTY STOMACH-DO NOT LIE DOWN FOR 30 MINUTES. (MONDAYS) Ceramides 1,3,6-11 (CERAVE) lotn Apply to affected area once daily. Comp Stocking,Knee,Regular,Sml (T.E.D. ANTI-EMBOLISM STOCKING) pair, wear daily levETIRAcetam (KEPPRA) 500 mg tablet TAKE 1 TABLET BY MOUTH TWICE DAILY (8AM,8PM) baclofen (LIORESAL) 20 mg tablet TAKE 1 TABLET BY MOUTH THREE TIMES DAILY (8AM,4PM,8PM) calcium-cholecalciferol, D3, (OYSTER SHELL CALCIUM-VITAMIN D) 250 mg-3.125 mcg (125 unit) per tablet TAKE (1) TABLET BY MOUTH ONCE DAILY. carbamide peroxide (DEBROX) 6.5 % otic solution Instill 2 drops into both ears once daily on Thursday and Thursday sertraline (ZOLOFT) 25 mg tablet Take 1 tablet by mouth once daily. Diaper,Brief, Adult,Disposable (DEPEND FIT-FLEX UNDERWEAR) 1 Box at bedtime as needed (one depends at bedtime as needed for urinary incontinence). COMPRESSION HOSIERY KNEE LENGTH, AD, 18-30 MMHG once daily. DUPIXENT SYRINGE 300 mg/2 mL injection every 2 weeks. petrolatum,white (WHITE PETROLATUM) ointment Apply 1 application to affected area as needed for Dry Skin (daily as needed for dry skin of legs and other affected areas). COMPOUNDED PRESCRIPTION Bilateral compression stockings: knee-high, closed toe, 15-20wt. Dx: edema Chlorhexidine Gluconate 0.12 % solution Use 15 mL as instructed twice daily. No current facility-administered medications for this visit. ALLERGIES Allergen Reactions Doxycycline Hives ACTIVE PROBLEM LIST Bullous Pemphigus - 10/21/2019 Abnormality of Gait - 04/17/2015 Other Symptoms Involving Nervous and Musculoskeletal Systems(781.99) - 07/12/2012 Vitamin D Deficiency - 07/07/2012 Osteopenia Comment: Will verify with records RE: osteoporosis vs. osteopenia Esophageal Reflux Localization-Related Focal Epilepsy With Simple Partial Seizures (Hcc) Cerebral Palsy (Hcc) BREAST CYST - 02/18/2006 Social History Tobacco Use Smoking status: Never Smokeless tobacco: Never Tobacco comments: No sm (more content not included)... [facility] 08-01-2022 History of Presen t illness Narrative VIRTUAL VISIT PROGRESS NOTE This is an encounter initiated for an established patient, parent or guardian not originating from a related Evaluation & Management service provided within the previous 7 days nor leading to an Evaluation & Management service or procedure within the next 24 hours or soonest available appointment. This is a virtual visit. It required patient-provider interaction for the medical decision making as documented below. Patient has consented to this encounter. Persons Present: patient and patient's caregiver Data Reviewed: Most recent notes, labs, meds Patient has consented to patient-provider interaction via telephone/virtual visit for the medical decision making documented in this telephone/virtual visit encounter. Total Time Spent: 35 minutes MERCEDES Means is a 67 year old female here today for a check up on her medical problems. Chief Complaint Patient presents with: Follow Up HPI Adenike presents today for routine follow up via a virtual visit on my chart per the [employer] platform. She is an established patient of Jorgito Robertson MD. Her visit today is being done with assistance from her clinical manager home care Monse due to limited mobility for Adenike. Vitals for visit: Blood pressure this am 132/80, t 97.6, p 78, R16, wt 206 lbs, pulse ox 99%. Appetite is good, no issues with foods/eating or drinking. Sleeping well. No constipation or diarrhea. No pain. Brother is medical POA. No other specialists. No seizure activity. Taking meds with out issues. Needs a refill on vitamin D. Depression Screening 10/22/2016 08/24/2018 07/22/2019 08/01/2022 PHQ-2 Score 0 0 0 0 Depression screening tool completed and reviewed. Based on score and interview, patient is not at risk for depression. Screening tool discussed with patient, and I recommended no further intervention at this time. Her medications were reviewed today and her list is now up to date. Medications Current Outpatient Medications Medication Sig cholecalciferol (VITAMIN D3) 50 mcg (2,000 unit) tablet Take 1 tablet by mouth once daily. ciclopirox (LOPROX) 0.77 % cream Apply to affected area twice daily. Treat for additional week after rash on feet resolves triamcinolone acetonide (KENALOG) 0.1 % cream Apply 1 application to affected area twice daily as needed (rash on feet or legs up to 2 weeks). Apply sparingly to area for rash/itching on left leg. guaiFENesin (ROBITUSSIN) 100 mg/5 mL syrup Take 10 mL by mouth every 4 hours as needed for cough. omeprazole (PRILOSEC) 40 mg capsule Take 1 capsule by mouth twice daily. tolterodine ER (DETROL LA) 2 mg 24 hr capsule Take 1 capsule by mouth once daily. alendronate (FOSAMAX) 70 mg tablet TAKE 1 TABLET BY MOUTH ONCE A WEEK W/A FULL GLASS OF WATER ON AN EMPTY STOMACH-DO NOT LIE DOWN FOR 30 MINUTES. (MONDAYS) Ceramides 1,3,6-11 (CERAVE) lotn Apply to affected area once daily. Comp Stocking,Knee,Regular,Sml (T.E.D. ANTI-EMBOLISM STOCKING) pair, wear daily levETIRAcetam (KEPPRA) 500 mg tablet TAKE 1 TABLET BY MOUTH TWICE DAILY (8AM,8PM) baclofen (LIORESAL) 20 mg tablet TAKE 1 TABLET BY MOUTH THREE TIMES DAILY (8AM,4PM,8PM) calcium-cholecalciferol, D3, (OYSTER SHELL CALCIUM-VITAMIN D) 250 mg-3.125 mcg (125 unit) per tablet TAKE (1) TABLET BY MOUTH ONCE DAILY. carbamide peroxide (DEBROX) 6.5 % otic solution Instill 2 drops into both ears once daily on Thursday and Thursday sertraline (ZOLOFT) 25 mg tablet Take 1 tablet by mouth once daily. Diaper,Brief, Adult,Disposable (DEPEND FIT-FLEX UNDERWEAR) 1 Box at bedtime as needed (one depends at bedtime as needed for urinary incontinence). COMPRESSION HOSIERY KNEE LENGTH, AD, 18-30 MMHG once daily. DUPIXENT SYRINGE 300 mg/2 mL injection every 2 weeks. petrolatum,white (WHITE PETROLATUM) ointment Apply 1 application to affected area as needed for Dry Skin (daily as needed for dry skin of legs and other affected areas). COMPOUNDED PRESCRIPTION Bilateral compression stockings: knee-high, closed toe, 15-20wt. Dx: edema Chlorhexidine Gluconate 0.12 % solution Use 15 mL as instructed twice daily. No current facility-administered medications for this visit. ALLERGIES Allergen Reactions Doxycycline Hives ACTIVE PROBLEM LIST Bullous Pemphigus - 10/21/2019 Abnormality of Gait - 04/17/2015 Other Symptoms Involving Nervous and Musculoskeletal Systems(781.99) - 07/12/2012 Vitamin D Deficiency - 07/07/2012 Osteopenia Comment: Will verify with records RE: osteoporosis vs. osteopenia Esophageal Reflux Localization-Related Focal Epilepsy With Simple Partial Seizures (Hcc) Cerebral Palsy (Hcc) BREAST CYST - 02/18/2006 Social History Tobacco Use Smoking status: Never Smokeless tobacco: Never Tobacco comments: No smokers in current home. Has not lived with smokers. Vaping Use Vaping Use: Never used Substance Use Topics Alcohol use: No Drug use: No Review of Systems Respiratory: Negative. Cardiovascular: Negative. OBJECTIVE BP 132/82 Pulse 78 Temp 97.6 Resp 16 Wt 206 lb (93.4kg) SpO2 99% Physical Exam Constitutional: General: She is awake. She is not in acute distress. Appearance: She is not ill-appearing, toxic-appearing or diaphoretic. Comments: During the virtual visit she is alert, responds to questions, breathing is quiet and not labored, no apparent distress. Neurological: Mental Status: She is alert. Psychiatric: Behavior: Behavior is cooperative. ASSESSMENT/PLAN: 1. Spastic quadriplegic cerebral palsy (HCC) - ICD9: 343.2, ICD10: G80.0 (primary diagnosis) Stable, no issues with visit today. - DEPRESSION SCREENING/ASSESSMENT - ADVANCE CARE PLAN DISCUSSION 2. 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 3. Vitamin D deficiency - ICD9: 268.9, ICD10: E55.9 - CHOLECALCIFEROL (VITAMIN D3) 50 MCG (2,000 UNIT) TABLET - VITAMIN D 25 HYDROXY 4. Encounter for therapeutic drug monitoring - ICD9: V58.83, ICD10: Z51.81 - CBC + DIFF - COMP METABOLIC PANEL - VITAMIN D 25 HYDROXY - LEVETIRACETAM - MAGNESIUM BLD 5. Screening for lipid disorders - ICD9: V77.91, ICD10: Z13.220 - LIPID PANEL BASIC Patient verbalizes understanding of instructions from today's visit and in agreement with treatment plan. Questions answered. Agrees to call the office if symptoms do not improve or if they worsen. Return in about 6 months (around 01/31/2023) for follow up. Patient has consented to patient-provider interaction via telephone/virtual visit for the medical decision making documented in this telephone/virtual visit encounter. Total Time Spent: 35 minutes documented in this encounter [facility] 07-30-2022 Miscellaneous Notes Okayed Last office visit: 05/28/22 Next appointment scheduled: 08/01/22 Last Vitamin D level was 10/31/21 at 60.8 Pharmacy calls in requesting the following refill(s): Requested Prescriptions Pending Prescriptions Disp Refills cholecalciferol (VITAMIN D3) 50 mcg (2,000 unit) tablet 31 tablet 11 Sig: Take 1 tablet by mouth once daily. documented in this encounter [facility] 07-28-2022 Miscellaneous Notes No answer. Left providers message and ask to call and ask to speak to a nurse with any questions or concerns. Okay verbal orders Mallory VIMAL with [facility] called in HH POC. She states they re-assessed the Pt and will be seeing her once a week for 5 weeks. They will be working on bathing, transferring, and dressing. Please call back with verbal orders. documented in this encounter [facility] 07-28-2022 Miscellaneous Notes Called and left a detailed voicemail notifying Bee PT from [facility] of providers message. Hospital phone number was left in case she had any questions. Yudi Richards RN Noted Do they need called back with verbal orders ? Bee PT from [facility] calling with POC. Will be seeing patient 1x per week for 5 weeks and will probably be discharging pt at the end. Pt is not making good progress. They are working on balance, transfers, gait and posture. documented in this encounter [facility] 07-16-2022 Note Patient Outreach (IN [facility]) NICHOLAS MEANS ([id number]) 1955 F NFR Date Time Provider Department 07/16/22 JORGITO ROBERTSON During your visit today, we recorded the following information about you: Allergies As of Date: 07/16/2022 Noted Allergy Reaction DOXYCYCLINE 10/18/2019 4 - Hives Date Reviewed: 10/31/2021 Reviewed by: Lashae Varghese APRN.GAMBLING BROKER - Fully Assessed Visit Diagnosis:Encounter for screening mammogram for breast cancer [Z12.31] Order(s):[facility] SCREENING [[id number]] Order #: [id number] FUTURE Prescriptions as of 07/21/2022 - ciclopirox (LOPROX) 0.77 % cream Apply to affected area twice daily. Treat for additional week after rash on feet resolves - triamcinolone acetonide (KENALOG) 0.1 % cream Apply 1 application to affected area twice daily as needed (rash on feet or legs up to 2 weeks). Apply sparingly to area for rash/itching on left leg. - guaiFENesin (ROBITUSSIN) 100 mg/5 mL syrup Take 10 mL by mouth every 4 hours as needed for cough. - omeprazole (PRILOSEC) 40 mg capsule Take 1 capsule by mouth twice daily. - tolterodine ER (DETROL LA) 2 mg 24 hr capsule Take 1 capsule by mouth once daily. - alendronate (FOSAMAX) 70 mg tablet TAKE 1 TABLET BY MOUTH ONCE A WEEK W/A FULL GLASS OF WATER ON AN EMPTY STOMACH-DO NOT LIE DOWN FOR 30 MINUTES. (MONDAYS) - Ceramides 1,3,6-11 (CERAVE) lotn Apply to affected area once daily. - Comp Stocking,Knee,Regular,Sml (T.E.D. ANTI-EMBOLISM STOCKING) pair, wear daily - levETIRAcetam (KEPPRA) 500 mg tablet TAKE 1 TABLET BY MOUTH TWICE DAILY (8AM,8PM) - baclofen (LIORESAL) 20 mg tablet TAKE 1 TABLET BY MOUTH THREE TIMES DAILY (8AM,4PM,8PM) - calcium-cholecalciferol, D3, (OYSTER SHELL CALCIUM-VITAMIN D) 250 mg-3.125 mcg (125 unit) per tablet TAKE (1) TABLET BY MOUTH ONCE DAILY. - carbamide peroxide (DEBROX) 6.5 % otic solution Instill 2 drops into both ears once daily on Thursday and Thursday - cholecalciferol (VITAMIN D3) 50 mcg (2,000 unit) tablet Take 1 tablet by mouth once daily. - sertraline (ZOLOFT) 25 mg tablet Take 1 tablet by mouth once daily. - Diaper,Brief, Adult,Disposable (DEPEND FIT-FLEX UNDERWEAR) 1 Box at bedtime as needed (one depends at bedtime as needed for urinary incontinence). - COMPRESSION HOSIERY KNEE LENGTH, AD, 18-30 MMHG once daily. - DUPIXENT SYRINGE 300 mg/2 mL injection every 2 weeks. - petrolatum,white (WHITE PETROLATUM) ointment Apply 1 application to affected area as needed for Dry Skin (daily as needed for dry skin of legs and other affected areas). - COMPOUNDED PRESCRIPTION Bilateral compression stockings: knee-high, closed toe, 15-20wt. Dx: edema - Chlorhexidine Gluconate 0.12 % solution Use 15 mL as instructed twice daily. Meds Comments as of 02/07/2019: Acidophilus 1 tab po once daily Problem List As Of Date 07/16/2022 Noted Resolved BREAST CYST [N60.09] 02/18/2006 Osteopenia [M89.9, M94.9] ESOPHAGEAL REFLUX [K21.9] Localization-related focal epilepsy with simple* Cerebral palsy (HCC) [G80.9] Vitamin D deficiency [E55.9] 07/07/2012 Other symptoms involving nervous and musculoske*07/12/2012 Abnormality of gait [R26.9] 04/17/2015 Bullous pemphigus [L10.9] 10/21/2019 Encounter Status:Closed by MAYI GRECOUSEJonas on 07/21/22 [facility] 07-10-2022 Miscellaneous Notes Gennaro RAE- [facility] called in and reports the provider that was previously ordering is going to re-order. She called their office after speaking with nurse here. Please disregard this message. Gennaro RAE- [facility]- reports patient is out of chlorhexideine mouth wash. Reports patient no longer sees the prescribing doctor. Asking if provider can send order to patient's pharmacy? States if unable to send Rx, can you send order to [facility] stating patient may use OTC mouthwash twice daily? documented in this encounter [facility] 06-09-2022 Miscellaneous Notes Mallory aware of same. Please return call and give verbal ok for OT plan of care. Thanks! Med Pearson APRN.CNP VIMAL Tejada @ [facility] calling with plan of care. OT will see patient 2 x/week for three weeks for balance and strength exercises. Requesting verbal okay. Martha Dixon RN documented in this encounter [facility] 06-04-2022 Miscellaneous Notes Debby nurse from [facility] was called and is notified of providers message and instructions. She voices understanding and said she would tell the people at the house if the cough persists to get the Pt in for an appointment. Yudi Richards RN Robitussin was ordered by lsahae varghese with refill on 05/30/22. She needs to be evaluated in office by for any further concerns or continuation of headache. Has only been seen in PCP office once so if possible seeing PCP group would be best option. Thank you Bibi Akins APRN.CNP Nurse Debby from [facility] called to report pt's cough has improved but not gone. Debby is asking if pt can have an Rx for a cough suppressant to be used as needed? Pt is getting over covid. Debby states pt still continues to complain of headaches daily. Please notify Debby. Pt uses [facility] [place]. Bee Gomez LPN documented in this encounter [facility] 05-30-2022 Miscellaneous Notes Monse aware of same. OK for CXR. Rx to [facility]. Monse with [place] calls to also request a liquid or something that can be crushed for cough. Monse also requests that CXR results be faxed to [phone]. Shellie Velazquez RN Debby from [facility] calling patient was seen Thursday and given Guaifenesin tablets, patient has been taking liquid since sometimes has problems with pills. Patient has non productive cough all night and vomits due to the harsh coughing. Asking for cough suppressant to be sent to [place] [facility] pharmacy. Please notify Debby with outcome of request. Please advise documented in this encounter [facility] 05-29-2022 Miscellaneous Notes Left detailed message on [employer]. Prescription sent. Also please let clinical manager home care know that chest xray did not show any pneumonia. I would like patient to come in next week to see PCP group for further evaluation. Thank you Bibi Akins APRN.AUTOMOTIVE ENGINEERING TEACHER Marlee caregiver @ [facility] calling to let provider know Mucinex needs to be sent to pharmacy as a script because patient resides in [facility]. Pended to [facility] per caregiver request. Martha Dixon RN documented in this encounter [facility] 05-28-2022 Note HNO ID: [id number] Author: Bibi Akins APRN.CNP Service: ? Author Type: Nurse Practitioner Type: Progress Notes Filed: 05/29/2022 9:00 AM Note Text: This Team Access Model visit is a phone encounter. It required patient-provider interaction for the medical decision making as documented below. Patient agrees to the visit: Yes Patient Location: [place] CC: Patient presents with: low O2 sat HPI Nicholas Means is a 67 year old female who is contacted today for a phone visit. This is an established patient of Dr. Jorgito Robertson MD. Patient has CP and is not mobile. Visit performed with caregiver Monse Edward Went to [place] [facility] on 05/25/22 via squad for sudden headache for 2 days, fever, sore throat, pulse ox of 89% on RA and nausea. Also vomited the day prior and concern was for possible aspiration. CT of brain was negative. Lab work showing positive for COVID. Was low for dilantin level but on keprra for seizures and no longer on dilantin. Unsure on why this was evaluated. Yesterday pulse ox was noted in the 70s. Patient was repositioned and came up immediately. Today's pulse ox is 94% on RA. Other vitals reported are Bp 136/86 Temp 97.4 Pulse 76 Respirations 16. Per caregiver, patient is coughing often and yesterday started having clear sputum. Denies any noticed shortness of breath, wheezing, edema, fever, chills, or chest pain. Reports that headache is starting to go away. REVIEW OF SYSTEMS General: no fevers, no chills, no night sweats, no recurrent infections, no change in appetite, no change in energy, and no significant changes in weight Respiratory: no wheezing, no shortness of breath, no hemoptysis Cardiovascular: no chest pain, no chest pressure, no palpitations, and no swelling Neurologic: No headache, weakness, numbness, tingling, dizziness,syncope. PAST MEDICAL HISTORY Diagnosis Date Bullous pemphigoid Cervical spondylosis Dystonia Esophageal reflux Hiatal hernia Leukopenia Localization-related (focal) (partial) epilepsy and epileptic syndromes with simple partial seizures, without mention of intractable epilepsy Osteopenia Will verify with records RE: osteoporosis vs. 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 tolterodine ER (DETROL LA) 2 mg 24 hr capsule Take 1 capsule by mouth once daily. alendronate (FOSAMAX) 70 mg tablet TAKE 1 TABLET BY MOUTH ONCE A WEEK W/A FULL GLASS OF WATER ON AN EMPTY STOMACH-DO NOT LIE DOWN FOR 30 MINUTES. (MONDAYS) Ceramides 1,3,6-11 (CERAVE) lotn Apply to affected area once daily. Comp Stocking,Knee,Regular,Sml (T.E.D. ANTI-EMBOLISM STOCKING) pair, wear daily levETIRAcetam (KEPPRA) 500 mg tablet TAKE 1 TABLET BY MOUTH TWICE DAILY (8AM,8PM) baclofen (LIORESAL) 20 mg tablet TAKE 1 TABLET BY MOUTH THREE TIMES DAILY (8AM,4PM,8PM) calcium-cholecalciferol, D3, (OYSTER SHELL CALCIUM-VITAMIN D) 250 mg-3.125 mcg (125 unit) per tablet TAKE (1) TABLET BY MOUTH ONCE DAILY. triamcinolone acetonide (KENALOG) 0.1 % cream Apply 1 application to affected area twice daily as needed (rash on feet or legs up to 2 weeks). Apply sparingly to area for rash/itching on left leg. carbamide peroxide (DEBROX) 6.5 % otic solution Instill 2 drops into both ears once daily on Thursday and Thursday cholecalciferol (VITAMIN D3) 50 mcg (2,000 unit) tablet Take 1 tablet by mouth once daily. sertraline (ZOLOFT) 25 mg tablet Take 1 tablet by mouth once daily. DUPIXENT SYRINGE 300 mg/2 mL injection every 2 weeks. Chlorhexidine Gluconate 0.12 % solution Use 15 mL as instructed twice daily. guaiFENesin (MUCINEX) 600 mg 12 hr tablet Take 2 tablets by mouth twice daily. Diaper,Brief, Adult,Disposable (DEPEND FIT-FLEX UNDERWEAR) 1 Box at bedtime as needed (one depends at bedtime as needed for urinary incontinence). COMPRESSION HOSIERY KNEE LENGTH, AD, 18-30 MMHG once daily. petrolatum,white (WHITE PETROLATUM) ointment Apply 1 application to affected area as needed for Dry Skin (daily as needed for dry skin of legs and other affected areas). COMPOUNDED PRESCRIPTION Bilateral compression stockings: knee-high, closed toe, 15-20wt. Dx: edema No family history on file. Social History Tobacco Use Smoking status: Never Smokeless tobacco: Never Tobacco comments: No smokers in current home. Has not lived with smokers. Vaping Use Vaping Use: Never used Substance Use Topics Alcohol use: No Drug use: No EXAM: Deferred physical exam as visit was completed over the phone. Appo (more content not included)... [facility] 05-28-2022 History of Presen t illness Narrative This Team Access Model visit is a phone encounter. It required patient-provider interaction for the medical decision making as documented below. Patient agrees to the visit: Yes Patient Location: [place] CC: Patient presents with: low O2 sat HPI Nicholas Means is a 67 year old female who is contacted today for a phone visit. This is an established patient of Dr. Jorgito Robertson MD. Patient has CP and is not mobile. Visit performed with caregiver Monse Edward Went to [place] ER on 05/25/22 via squad for sudden headache for 2 days, fever, sore throat, pulse ox of 89% on RA and nausea. Also vomited the day prior and concern was for possible aspiration. CT of brain was negative. Lab work showing positive for COVID. Was low for dilantin level but on keprra for seizures and no longer on dilantin. Unsure on why this was evaluated. Yesterday pulse ox was noted in the 70s. Patient was repositioned and came up immediately. Today's pulse ox is 94% on RA. Other vitals reported are Bp 136/86 Temp 97.4 Pulse 76 Respirations 16. Per caregiver, patient is coughing often and yesterday started having clear sputum. Denies any noticed shortness of breath, wheezing, edema, fever, chills, or chest pain. Reports that headache is starting to go away. REVIEW OF SYSTEMS General: no fevers, no chills, no night sweats, no recurrent infections, no change in appetite, no change in energy, and no significant changes in weight Respiratory: no wheezing, no shortness of breath, no hemoptysis Cardiovascular: no chest pain, no chest pressure, no palpitations, and no swelling Neurologic: No headache, weakness, numbness, tingling, dizziness,syncope. PAST MEDICAL HISTORY Diagnosis Date Bullous pemphigoid Cervical spondylosis Dystonia Esophageal reflux Hiatal hernia Leukopenia Localization-related (focal) (partial) epilepsy and epileptic syndromes with simple partial seizures, without mention of intractable epilepsy Osteopenia Will verify with records RE: osteoporosis vs. 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 tolterodine ER (DETROL LA) 2 mg 24 hr capsule Take 1 capsule by mouth once daily. alendronate (FOSAMAX) 70 mg tablet TAKE 1 TABLET BY MOUTH ONCE A WEEK W/A FULL GLASS OF WATER ON AN EMPTY STOMACH-DO NOT LIE DOWN FOR 30 MINUTES. (MONDAYS) Ceramides 1,3,6-11 (CERAVE) lotn Apply to affected area once daily. Comp Stocking,Knee,Regular,Sml (T.E.D. ANTI-EMBOLISM STOCKING) pair, wear daily levETIRAcetam (KEPPRA) 500 mg tablet TAKE 1 TABLET BY MOUTH TWICE DAILY (8AM,8PM) baclofen (LIORESAL) 20 mg tablet TAKE 1 TABLET BY MOUTH THREE TIMES DAILY (8AM,4PM,8PM) calcium-cholecalciferol, D3, (OYSTER SHELL CALCIUM-VITAMIN D) 250 mg-3.125 mcg (125 unit) per tablet TAKE (1) TABLET BY MOUTH ONCE DAILY. triamcinolone acetonide (KENALOG) 0.1 % cream Apply 1 application to affected area twice daily as needed (rash on feet or legs up to 2 weeks). Apply sparingly to area for rash/itching on left leg. carbamide peroxide (DEBROX) 6.5 % otic solution Instill 2 drops into both ears once daily on Thursday and Thursday cholecalciferol (VITAMIN D3) 50 mcg (2,000 unit) tablet Take 1 tablet by mouth once daily. sertraline (ZOLOFT) 25 mg tablet Take 1 tablet by mouth once daily. DUPIXENT SYRINGE 300 mg/2 mL injection every 2 weeks. Chlorhexidine Gluconate 0.12 % solution Use 15 mL as instructed twice daily. guaiFENesin (MUCINEX) 600 mg 12 hr tablet Take 2 tablets by mouth twice daily. Diaper,Brief, Adult,Disposable (DEPEND FIT-FLEX UNDERWEAR) 1 Box at bedtime as needed (one depends at bedtime as needed for urinary incontinence). COMPRESSION HOSIERY KNEE LENGTH, AD, 18-30 MMHG once daily. petrolatum,white (WHITE PETROLATUM) ointment Apply 1 application to affected area as needed for Dry Skin (daily as needed for dry skin of legs and other affected areas). COMPOUNDED PRESCRIPTION Bilateral compression stockings: knee-high, closed toe, 15-20wt. Dx: edema No family history on file. Social History Tobacco Use Smoking status: Never Smokeless tobacco: Never Tobacco comments: No smokers in current home. Has not lived with smokers. Vaping Use Vaping Use: Never used Substance Use Topics Alcohol use: No Drug use: No EXAM: Deferred physical exam as visit was completed over the phone. Appointment completed with caregiver. DATA REVIEWED: Outside chart from [facility] reviewed. COVID-19 VACCINE(1) Never done SHINGRIX VACCINE(1 of 2) Never done PNEUMOCOCCAL: 65+(2 - PPSV23 if available, else PCV20) due on 11/25/2019 MAMMOGRAM due on 07/20/2020 DTAP,TDAP,TD(2 - Td or Tdap) due on 05/25/2021 ADVANCE DIRECTIVE DISCUSSION Never done DEPRESSION ASSESSMENT Never done DIABETES SCREEN due on 10/31/2024 LIPID SCREEN due on 10/31/2026 COLORECTAL CANCER SCREENING due on 06/14/2028 BONE DENSITY Completed INFLUENZA Completed HEPATITIS C SCREENING Completed ASSESSMENT/PLAN: 1. Low oxygen saturation - ICD9: 790.91, ICD10: R79.81 (primary diagnosis) - only once yesterday and repositioning improved. No further occurrences. With this occuring, will do chest xray via mobile unit. Starting with mucinex at this time. And will treat as indicated from xray - patient needing to follow up in office next week so full evaluation can be completed. - go to ER for any shortness of breath, decrease of oxygenation below 92%, chest pain or any other urgent concern - XR CHEST 2V FRONTAL/LAT 2. Acute cough - ICD9: 786.2, ICD10: R05.1 As above - XR CHEST 2V FRONTAL/LAT 3. COVID - ICD9: 079.89, ICD10: U07.1 - over 5 days for symptoms. , see #1 - XR CHEST 2V FRONTAL/LAT Prescription instructions reviewed with patient as applicable. Potential red flag symptoms discussed with the patient. Reviewed appropriate action plan to take if red flag symptoms occur. Patient agreeable to treatment plan. During this patient visit I have spent approximately 20 minutes in counseling regarding treatment options, medications, test results, and coordinating care. Bibi Akins APRN.CNP documented in this encounter [facility] 05-12-2022 Miscellaneous Notes Trey notified. Tahira Rolon LPN Noted Trey Gilliland called to let you know the followin) FYI: pt missed her 8 am dose of medication on 05-10-22. Pt had the rest of the doses after that. No ill affects. Tahira Rolon LPN documented in this encounter [facility] 05-01-2022 Miscellaneous Notes Called and left a voicemail for the Patient to call back and ask for a nurse to receive the providers message. Yudi Richards RN See below. Okay for OT home health care Henri CELIS with [place] calls to let provider know that patient was seen for recertification of OT services. Patient to be seen for 1 wk 1 and 2 wk 4. OT will work with patient on ADL's, transfers, therapeutic activities, and therapeutic exercises. Hneri requesting verbal order be phoned to [phone]. Please review and advise, Shellie Velazquez RN documented in this encounter [facility] 03-31-2022 Miscellaneous Notes Detailed message left giving verbal approval for OT plan of care. Noted, agree,please let OT know. Henri CELIS with [place] called in and reports they had been out last week to reassess the patient. She states they will be seeing the patient 2 times a week for four weeks. They will see the Pt for ADLs, therapeutic activity, therapeutic exercise, and neuro-ed. She is asking provider for verbal approval of orders. She reports her phone line is confidential and you can leave a voice mail. documented in this encounter [facility] 03-03-2022 Miscellaneous Notes Mallory aware of same. Okay to return call and give verbal order that we agree. Mallory Hayes OT with [facility] calls to let provider know patient was seen for recert POC and OT will plan to see patient for 1 wk 4. Mallory requesting verbal order be called to [phone] if provider agrees. Please review and advise, Shellie Velazquez RN documented in this encounter [facility] 02-20-2022 Miscellaneous Notes Spoke with Mike with [facility] and gave him providers message and verbalized understanding. [place] [facility] Mike with [facility] calling to get verbal orders you will continue to follow for home health. Please advise Mike. Okay to leave a message. Tahira Rolon LPN documented in this encounter [facility] 02-12-2022 Miscellaneous Notes message left to pts caregiver's number to return call to reschedule May's appt with pcp and if wrist braces are needed/wants to arrange appt to review this request. NEED TO ALSO MAKE CONTACT WITH THE PT TO SEE IF THIS IS REQUESTED. IF THE NEXT THINK THIS COMPANY IS GOING TO ASK FOR IS OFFICE NOTES SAYS THIS IS NEEDED PT WILL NEED AN APPT TO REVIEW. Received order to pcp for kale wrist braces. Provider is out of the off, order has been placed on on nurses desk for signature. [facility] reports she faxed an order to pcp for kale wrist braces on 01-16-22 and will fax again today. documented in this encounter [facility] 02-04-2022 Miscellaneous Notes Patient has been identified by name and date of : Yes, Provider Dr Robertson Date 02/04/22 Time 1045. Monse caregiver with [facility] phones for refill(s): Requested Prescriptions Pending Prescriptions Disp Refills omeprazole (PRILOSEC) 40 mg capsule 180 capsule 3 Sig: Take 1 capsule by mouth twice daily. tolterodine ER (DETROL LA) 2 mg 24 hr capsule 30 capsule 11 Sig: Take 1 capsule by mouth once daily. alendronate (FOSAMAX) 70 mg tablet 12 tablet 3 Sig: TAKE 1 TABLET BY MOUTH ONCE A WEEK W/A FULL GLASS OF WATER ON AN EMPTY STOMACH-DO NOT LIE DOWN FOR 30 MINUTES. (MONDAYS) Date of last office visit in primary care: 10/31/21 Future visit: none Last 2 Encounter Wt Readings: Date: Wt: 09/04/2020 86.2 kg (190 lb) 04/04/2020 88.9 kg (196 lb) Previous labs/tests for medication: Blood Pressure: BUN (mg/dL) Date Value 10/31/2021 13 03/15/2020 14 Sodium (mmol/L) Date Value 10/31/2021 140 03/15/2020 139 Last 1 Encounter BP Readings: Date: BP: 10/31/2021 122/74 Please advise. Thank you. Yudi Richards, RN documented in this encounter [facility] 01-30-2022 Miscellaneous Notes Call placed to Mallory and verbal order given for OT to continue 1 wk 5. Shellie Velazquez RN OK Mallory Hayes OT with [facility] calls to let provider know patient was seen for recert POC and OT will plan to see patient for 1 wk 5. Mallory requesting verbal order be called to [phone] if provider agrees. Shellie Velazquez RN documented in this encounter [facility] 01-06-2022 Miscellaneous Notes Spoke with Kelsea and she states patient went back to the hospital and awaiting if she will be admitted or not. Will update and request new orders as needed. Okay for there verbal order. Please let them know. Med Pearson APRN.RACHID Kelsea PT with [facility] calls to request a verbal order to delay PT visit until tomorrow 01/04/2022 d/t to being able to fit it because of the holiday. Kelsea requesting verbal order be phoned to [phone]. Shellie Velazquez RN documented in this encounter [facility] 12-20-2021 Miscellaneous Notes Received fax from [facility] request Rx to [place] Also requesting [place] anti-embolism stockings documented in this encounter [facility] 12-03-2021 Miscellaneous Notes Refills provided, please schedule for 1 year follow up around 04/03 NOV: none RONY: 04/05/21 Please advise documented in this encounter [facility] 11-18-2021 Miscellaneous Notes Rosmery with [employer] requesting recent OV note that includes medical documentation of patient use of wheelchair. Requesting note to be faxed to assist patient with wheelchair repair. Faxed to [phone] as requested. Rosmery Quiñones RN documented in this encounter [facility] 11-01-2021 Miscellaneous Notes ok Mallory, an OT with [facility] calling. Patient was evaluated for OT recently. Mallory requesting orders for: Delay in start of care for OT-to start care in one week. OT to see patient one time per week for 4 weeks. No call back needed if provider agreeable. Thank you. documented in this encounter [facility] 10-31-2021 Instructions Lashae Varghese APRN.GAMBLING BROKER - 10/31/2021 8:08 AM EDT Check to see if your insurance covers Tdap abd shingles vaccine and what location to get the vaccine -usually best covered at your local pharmacy where you get prescriptions filled documented in this encounter [facility] 10-31-2021 History of Presen t illness Narrative SUBJECTIVE: COVID-19 VACCINE(1) Never done PNEUMOCOCCAL: 65+(2 - PPSV23 or PCV20) due on 11/25/2019 MAMMOGRAM due on 07/20/2020 LIPID SCREEN due on 10/31/2021 HPI Nicholas Means is a 66 year old female. Past medical history is significant for cerebral palsy, focal epilepsy, tremors, weakness of arms and legs, eversion of left foot / AFO, abnormality of gait, wheelchair dependent, GERD, osteopenia, incontinence and bullous pemphigus. Presents today for routine visit. Last seen in 06/2020. Last seen by Jorgito Robertson MD 2019. Since last here [place] [facility] visits January 22, 2021 and August 26, 2021. Sees neurologist Kendal Liang MD neurology for cognitive impairment, spacticity, seizures, last visit 04/05/2021. Noted PT/OT for hands. Baclofen for spasticity. Continued on Keppras for seizrues unchanged. Discontinued artane due to cognitive impairment. CT brain noted unremarkable. Follow up 1 yr. HPI excerpted from previous visit. Presents today in need of hospital bed. Due to her medical conditions she is unable to reposition her body on her own. Due to cerebral palsy she has only pincher function of the right and left hand, little strength in both arms and hands and leg weakness. She is able to transfer to wheelchair only with a 2 person assist. She is a two-person assist for all position changes including rolling over in bed, moving upward in bed, transfering out of bed. Head of bed elevation with pillows in her current bed have been trialed but not helpful or sufficient to maintain head elevation. Her current bed is at a different height in her wheelchair making transfers more difficult. She has incontinence and routinely uses incontinence supplies. GERD/hiatal hernia: stable Osteopenia: taking supplemental vitamin D and calcium Urinary incontinence: stable Mood stable, no voiced SI, HI Review of Systems Constitutional: Negative. Musculoskeletal: Positive for gait problem. Neurological: Positive for tremors, seizures, speech difficulty and weakness. Objective BP 122/74 Pulse 80 Resp 16 Physical Exam Vitals and nursing note reviewed. Constitutional: Appearance: Normal appearance. HENT: Head: Normocephalic and atraumatic. Eyes: Conjunctiva/sclera: Conjunctivae normal. Cardiovascular: Rate and Rhythm: Normal rate and regular rhythm. Heart sounds: Normal heart sounds. Pulmonary: Effort: Pulmonary effort is normal. Breath sounds: Normal breath sounds. Abdominal: General: Bowel sounds are normal. Palpations: Abdomen is soft. Musculoskeletal: Comments: Seated in wheelchair. Contractures both hands, weakness right arm greater than left arm, right arm tremor, weakness right and left leg, foot orthotic left foot /left foot eversion Skin: General: Skin is warm and dry. Neurological: Mental Status: She is alert. Mental status is at baseline. Motor: Weakness present. Coordination: Coordination abnormal. Gait: Gait abnormal. ALLERGIES Allergen Reactions Doxycycline Hives Medications Ceramides 1,3,6-11 (CERAVE) lotn Apply to affected area. ondansetron (ZOFRAN) 4 mg tablet Take by mouth every 8 hours as needed for nausea/vomiting. triamcinolone acetonide (KENALOG) 0.1 % cream Apply 1 application to affected area twice daily as needed (rash on feet or legs up to 2 weeks). Apply sparingly to area for rash/itching on left leg. carbamide peroxide (DEBROX) 6.5 % otic solution Instill 2 drops into both ears once daily on Thursday and Thursday cholecalciferol (VITAMIN D3) 50 mcg (2,000 unit) tablet Take 1 tablet by mouth once daily. sertraline (ZOLOFT) 25 mg tablet Take 1 tablet by mouth once daily. levETIRAcetam (KEPPRA) 500 mg tablet Take 1 tablet by mouth twice daily. baclofen (LIORESAL) 20 mg tablet Take 1 tablet by mouth three times daily. omeprazole (PRILOSEC) 40 mg capsule Take 1 capsule by mouth twice daily. tolterodine ER (DETROL LA) 2 mg 24 hr capsule Take 1 capsule by mouth once daily. alendronate (FOSAMAX) 70 mg tablet TAKE 1 TABLET BY MOUTH ONCE A WEEK W/A FULL GLASS OF WATER ON AN EMPTY STOMACH-DO NOT LIE DOWN FOR 30 MINUTES. (MONDAYS) Diaper,Brief, Adult,Disposable (DEPEND FIT-FLEX UNDERWEAR) 1 Box at bedtime as needed (one depends at bedtime as needed for urinary incontinence). COMPRESSION HOSIERY KNEE LENGTH, AD, 18-30 MMHG once daily. triamterene-hydrochlorothiazide 37.5-25 mg per capsule Daily for one week, then NEEDED (Patient taking differently: Take 1 capsule by mouth once daily. NEEDED) DUPIXENT SYRINGE 300 mg/2 mL injection every 2 weeks. petrolatum,white (WHITE PETROLATUM) ointment Apply 1 application to affected area as needed for Dry Skin (daily as needed for dry skin of legs and other affected areas). COMPOUNDED PRESCRIPTION Bilateral compression stockings: knee-high, closed toe, 15-20wt. Dx: edema Chlorhexidine Gluconate 0.12 % solution Use 15 mL as instructed twice daily. calcium-cholecalciferol, D3, (OYSTER SHELL CALCIUM-VITAMIN D) 250 mg-3.125 mcg (125 unit) per tablet TAKE (1) TABLET BY MOUTH ONCE DAILY. PAST MEDICAL HISTORY Diagnosis Date Bullous pemphigoid Cervical spondylosis Dystonia Esophageal reflux Hiatal hernia Leukopenia Localization-related (focal) (partial) epilepsy and epileptic syndromes with simple partial seizures, without mention of intractable epilepsy Osteopenia Will verify with records RE: osteoporosis vs. 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 Has not lived with smokers. Vaping Use Vaping Use: Never used Substance Use Topics Alcohol use: No Drug use: No Component Latest Ref Rng & Units 03/15/2020 WBC 3.70 - 11.00 k/uL 5.32 RBC 3.90 - 5.20 m/uL 4.64 Hemoglobin 11.5 - 15.5 g/dL 13.3 Hematocrit 36.0 - 46.0 % 41.4 MCV 80.0 - 100.0 fL 89.2 MCH 26.0 - 34.0 pG 28.7 MCHC 30.5 - 36.0 g/dL 32.1 RDW-CV 11.5 - 15.0 % 13.2 Platelet Count 150 - 400 k/uL 258 MPV 9.0 - 12.7 fL 11.4 Neut% % 57.5 Abs Neut (ANC) 1.45 - 7.50 k/uL 3.05 Lymph% % 29.5 Abs Lymph 1.00 - 4.00 k/uL 1.57 Tensas% % 8.5 Abs Tensas <0.87 k/uL 0.45 Eosin% % 3.6 Abs Eosin <0.46 k/uL 0.19 Baso% % 0.9 Abs Baso <0.11 k/uL 0.05 Nucleated Reds 0 /100 WBC 0.0 Absolute nRBC <0.01 k/uL <0.01 Diff Type Auto Diff Protein, Total 6.3 - 8.0 g/dL 6.5 Albumin 3.9 - 4.9 g/dL 3.9 Calcium 8.5 - 10.2 mg/dL 9.4 Bilirubin, Total 0.2 - 1.3 mg/dL 0.3 Alkaline Phosphatase 34 - 123 U/L 98 AST 13 - 35 U/L 20 Glucose 74 - 99 mg/dL 84 BUN 7 - 21 mg/dL 14 Creatinine 0.58 - 0.96 mg/dL 0.64 Sodium 136 - 144 mmol/L 139 Potassium 3.7 - 5.1 mmol/L 4.2 Chloride 97 - 105 mmol/L 102 CO2 22 - 30 mmol/L 28 Anion Gap 9 - 18 mmol/L 9 ALT 7 - 38 U/L 16 eGFR- >60 eGFR-All Other Races . >60 Levetiracetam 12.0 - 46.0 ug/mL 23.1 Vitamin D 25 Hydroxy 31.0 - 80.0 ng/mL 63.2 ASSESSMENT/PLAN: 1. Routine medical exam - ICD9: V70.0, ICD10: Z00.00 (primary diagnosis) - Endorse healthy diet and regular exercise as able - Endorse Calcium intake with supplements or by diet of 2986-5782 mg/day for 50+ 2. Encounter for immunization - ICD9: V03.89, ICD10: Z23 - PFIZER-BIONTECH COVID-19 BIVALENT BOOSTER VACCINE, AGE 12+ YR - PNEUMOCOCCAL VACCINE (PREVNAR 20) - INFLUENZA SEASONAL QUADRIVALENT HIGH DOSE AGE 65+ 3. Need for shingles vaccine - ICD9: V04.89, ICD10: Z23 4. Screening for lipid disorders - ICD9: V77.91, ICD10: Z13.220 - LIPID PANEL BASIC 5. Gastroesophageal reflux disease without esophagitis - ICD9: 530.81, ICD10: K21.9 Stable, currently controlled, continue to monitor. - COMP METABOLIC PANEL - CBC + DIFF 6. Vitamin D deficiency - ICD9: 268.9, ICD10: E55.9 check levels today, continue supplementation unchaged for now - VITAMIN D 25 HYDROXY 7. Spastic quadriplegic cerebral palsy (HCC) - ICD9: 343.2, ICD10: G80.0 8. Abnormality of gait - ICD9: 781.2, ICD10: R26.9 9. 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 History of urinary incontinence - ICD9: V13.09, ICD10: Z87.898 Stable, currently controlled, continue to monitor. 6 mo follow up Jorgito Robertson MD Due for follow up neurologist March 2022. Lashae Varghese APRN.GAMBLING BROKER Medical Decision Making: Problems: Moderate: 2+ stable chronic illnesses Data: Unique test(s) ordered: 3+ Risk: Moderate: Drug management Medical Decision Making Level: 4 - Moderate documented in this encounter [facility] 10-25-2021 Miscellaneous Notes Debby returned call and given provider's message below with verbalized understanding. Called and left a voicemail for the Patient to call back and ask for a nurse to receive the providers message. Yudi Richards RN 1) What is the prn cream? If that is hydrocortisone, note that if has possible tinea pedis, then needs to use different cream for that and should be used routinely till 1 week after rash resolved. Sent ciclopirox in case already used mycostatin and not effective. 2) May use TAC for itching if needed. Follow up if not getting better. The following approved medication requests have been transmitted electronically. Requested Prescriptions Signed Prescriptions Disp Refills ciclopirox (LOPROX) 0.77 % cream 30 g 0 Sig: Apply to affected area twice daily. Treat for additional week after rash on feet resolves Authorizing Provider: JORGITO ROBERTSON triamcinolone acetonide (KENALOG) 0.1 % cream 45 g 0 Sig: Apply 1 application to affected area twice daily as needed (rash on feet or legs up to 2 weeks). Apply sparingly to area for rash/itching on left leg. Authorizing Provider: JORGITO ROBERTSON MD Debby called to update again. The rash is getting a little worse. Debby states she has been using a hydrocortisone cream and asking if you want her to also use the triamcinolone acetonide 0.1% cream. If so will need a prescription sent to the pharmacy. Please advise Debby. Tahira Rolon LPN Debby from [facility] calls to report that patient has a rash on bilateral feet. Rash is more on left foot. Rash is not raised. Rash just has small red patches. Patient denies itching or pain. They have been putting prn cream on feet. Debby states that they will continue to watch rash and will report changes. Monse Pat RN documented in this encounter [facility] 09-26-2021 Miscellaneous Notes No answer. Left providers message regarding patient Peggy and ask her to call with any questions or concerns OK for OT as noted; please let her know Mallory OT with [facility] call and reports that she went in to reassess patient. Mallory reports that they will be see patient 1 time a week for 4 weeks. Patient asking for verbal orders. Monse Pat RN documented in this encounter [facility] 09-04-2021 Miscellaneous Notes Noted Henri OT with [facility] called and reports she saw the Pt for a re-evaluation. She reports they will be seeing Pt once a week for four more weeks. Do not need to call her unless Provider muñiz not agree to follow. documented in this encounter [facility] 08-16-2021 Miscellaneous Notes Okayed Pharmacy verified in [facility] Patient has been identified by name and date of : Yes Patient aware RX will be sent to pharmacy. No need to notify patient. Parent/Guardian phones for refill(s): Pending Prescriptions Disp Refills CARBAMIDE PEROXIDE 6.5 % EAR DROPS 15 mL 3 Sig: Instill 2 drops into both ears once daily on Thursday and Thursday ASIA: No Date of last office visit : 06/28/2020 Date of next office visit : 10/31/2021 Last 2 Encounter Wt Readings: Date: Wt: 09/04/2020 86.2 kg (190 lb) 04/04/2020 88.9 kg (196 lb) Please advise. Verna Johnson Pss documented in this encounter [facility] 08-16-2021 Miscellaneous Notes Stefany warehouse logistics coordinator discovered rx is needed from ENT Dr, so she will call that office. documented in this encounter [facility] 08-06-2021 Miscellaneous Notes ok Henri OT calling from [facility] to report plan of care for patient and OT will visit patient 2 times a week for four weeks. Henri reports no call back is necessary if provider agrees to POC. Shellie Velazquez RN documented in this encounter [facility] 08-06-2021 Miscellaneous Notes Last OV: 06/28/20 Next OV: N/A Please assist with scheduling Patient has been identified by name and date of : Yes Pending Prescriptions Disp Refills CHOLECALCIFEROL (VITAMIN D3) 50 MCG (2,000 UNIT) TABLET 31 tablet 11 Sig: Take 1 tablet by mouth once daily. ASIA: No SERTRALINE 25 MG TABLET 30 tablet 11 Sig: Take 1 tablet by mouth once daily. ASIA: No RX INSTRUCTIONS: Patient aware RX will be sent to pharmacy. No need to notify patient. Viktoria Warren Pss documented in this encounter [facility] 07-04-2021 Miscellaneous Notes Okay for plan [facility]. She is asking if provider approves POC effective 06/30 they will see the patient two times a week for one week, effective 07/07 they will see the patient two times a week for four weeks. Do not need to call unless provider has a problem with this plan. documented in this encounter [facility] 06-05-2021 Miscellaneous Notes Yumiko from [employer] calling asking for copy of office visit notes for the order for the AFO request. Last office visit was 06/2020, no future appt scheduled. Yumiko said with Medicare for billing will need recent office visit notes. Patient will have to be seen before can get AFO. documented in this encounter [facility] 06-03-2021 Miscellaneous Notes No answer. Left message for Mallory with OT to call office and ask to speak to a nurse regarding patient. OK Mallory with OT calls with plan of care. OT will see pt twice a week x 4 weeks then once a week x 1 week for feeding and dressing skills and transfers. Mallory is requesting VO from provider that provider agrees with the plan. Call Mallory with provider's VO. Ani Muñoz LPN documented in this encounter [facility] 05-13-2021 Miscellaneous Notes Timothy notified ok Timothy from [facility] calls and states that they re-certified patient for halfway for medication administration and skilled assessments. Timothy calling for verbal orders that provider still willing to follow orders for halfway? Please review and advise, Monse Pat RN documented in this encounter [facility] 05-13-2021 Miscellaneous Notes Gertrude from [facility] called in stating they received order for pt, but pt has not called about them. Rubber Stamp Dies Inspector asking to fax a demographic sheet so she can call the pt. Demographic sheet faxed with success to Gertrude at [facility]. documented in this encounter [facility] 05-09-2021 Miscellaneous Notes Order faxed to below fax number as requested. andrey Kelsea calling from [facility] to report plan of care for patient and PT will visit patient 1 time a week for first week and 2 times a week for 3 weeks. PT will work with patient on transfers and ambulation. Kelsea also requesting an order for AFO articulating left foot to be faxed to [phone]. Order pended with diagnosis of abnormality of gait for review. Shellie Velazquez RN documented in this encounter [facility] 05-03-2021 Miscellaneous Notes ok Henri OT with [facility] calls to let provider know that patient will have an OT missed visit this week d/t patient is due for recertification next week and company wants OT to see patient once next week instead of twice in two weeks. Henri said no need to call her back unless there is a problem. Shellie Velazquez RN documented in this encounter [facility] 04-04-2020 Note HNO ID: [id number] Author: Kendal Liang Service: ? Author Type: Physician Type: Progress Notes Filed: 04/04/2020 2:36 PM Note Text: CC: cognitive impairment, spacticity, seizures. S: She is doing well No seizures She gets PT/OT to work w/ her hands. Uses weighted utensils to feed herself Starting workshop again soon. She declined covid vaccine Intermittent episodes of confusion, not causing significant difficulties. Medications: Current Outpatient Medications on File Prior to Visit Medication Sig - omeprazole (PRILOSEC) 40 mg capsule Take 1 capsule by mouth twice daily. - COMPRESSION HOSIERY KNEE LENGTH, AD, 18-30 MMHG once daily. - tolterodine ER (DETROL LA) 2 mg 24 hr capsule Take 1 capsule by mouth once daily. - sertraline (ZOLOFT) 25 mg tablet Take 1 tablet by mouth once daily. - calcium-cholecalciferol, D3, (OYSTER SHELL CALCIUM-VITAMIN D) 250-125 mg-unit per tablet TAKE (1) TABLET BY MOUTH ONCE DAILY. - alendronate (FOSAMAX) 70 mg tablet TAKE 1 TABLET BY MOUTH ONCE A WEEK W/A FULL GLASS OF WATER ON AN EMPTY STOMACH-DO NOT LIE DOWN FOR 30 MINUTES. (MONDAYS) - baclofen (LIORESAL) 20 mg tablet Take 1 tablet by mouth three times daily. (Stable on this dose with less confusion; may stay on this dose) - triamterene-hydrochlorothiazide 37.5-25 mg per capsule Daily for one week, then NEEDED - DUPIXENT SYRINGE 300 mg/2 mL injection - trihexyphenidyl (ARTANE) 2 mg tablet Being tapered off by Dr. Liang (Patient not taking: Reported on 11/29/2019 ) - petrolatum,white (WHITE PETROLATUM) ointment Apply 1 application to affected area as needed for Dry Skin (daily as needed for dry skin of legs and other affected areas). - cholecalciferol (VITAMIN D3) 50 mcg (2,000 unit) tablet Take 1 tablet by mouth once daily. - levETIRAcetam (KEPPRA) 500 mg tablet Take 1 tablet by mouth twice daily. - triamcinolone acetonide (KENALOG) 0.1 % cream Apply 1 application to affected area twice daily. Apply sparingly to area for rash/itching on left leg. (Patient not taking: Reported on 11/29/2019 ) - nystatin (MYCOSTATIN) cream Apply to affected area twice daily. Apply till 7 days after rash resolves (Patient not taking: Reported on 03/15/2020 ) - carbamide peroxide (DEBROX) 6.5 % otic solution Instill 2 drops into both ears once daily on Thursday and Thursday - COMPOUNDED PRESCRIPTION Bilateral compression stockings: knee-high, closed toe, 15-20wt. Dx: edema - predniSONE (DELTASONE) 10 mg tablet Take 1 tablet by mouth once daily. (Patient not taking: Reported on 11/29/2019 ) - triamcinolone-dimethicone 0.1-5 % ktoc Apply to affected area. PRN - acetaminophen (TYLENOL) 500 mg tablet Take 500 mg by mouth every 8 hours as needed. - Chlorhexidine Gluconate 0.12 % solution Use 15 mL as instructed twice daily. No current facility-administered medications on file prior to visit. PMH/SH/FH: Reviewed from last visit and unchanged. ROS: Reviewed from prior visit and unchanged. Exam: Vitals: BP 115/70 (BP Site: Right Arm, BP Position: Sitting, BP Cuff Size: Large Adult) Pulse 76 Ht 5' 8 (1.727 m) Wt 196 lb (88.9 kg) SpO2 92% BMI 29.80 kg/m? Gen: well appearing, in no acute distress Speech fluent, spastic. Attention and concentration intact. Pupils equally round and reactive to light. Extraocular muscles intact. Visual keller full, face symmetric. Increased tone bilateral hands. Flexion contractures of the digits bilateral UE. Deltoid Triceps Biceps Wrist ext. Hand intrinsic Hip flexion Knee flexion Knee Ext. Papo. Flex Pl. flex Right 5 5 5 5 contractures 5 5 5 4 4 Left 5 5 5 5 contractures 5 5 5 0 0 Assessment/Plan: 1. Hx based on medical records of seizures. No known seizure episodes in > 5 years on dilantin, discontinued d/t rash. ? Now on keppra 500 mg bid, tolerating well with no seizure episodes, no adverse effects. Continue keppra 500 mg bid. ? 2. 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 Continue baclofen 20 mg tid, discontinued Artane due to complaints of cognitive impairment. At today's visit she has flexion contracture of bilateral hands, poor passive range of motion, continue PT, I am note sure that she would benefit from botox or bracing d/t poor passive rom. I will refer her to physiatry for evaluation for further management options. ? 3. Cognitive impairment; Discontinued Artane, baclofen dose reduced from 30 mg tid to 20 mg tid, labs unremarkable, CT brain unremarkable. Overall symptoms improved since reducing dose of spasticity medications. ? RTC 6 months. [facility] 10-03-2019 Note HNO ID: [id number] Author: Kendal Liang Service: ? Author Type: Physician Type: Progress Notes Filed: 10/03/2019 9:01 AM Note Text: CC: cognitive impairment, spacticity, seizures. S: Last seen 08/01/19 At that time there was concern of cognitive impairment with episodes of confusion sometimes associated with agitation. I gave him a taper schedule for her Artane. She continued on baclofen, Keppra. Testing was done including CT brain, TSH, folate, B12, RPR. Lab results were unremarkable. Last Keppra level was 12.9. CT brain findings were unremarkable. Overall she continues to have some episodes of confusion, but seems improved. Her pcp decreased baclofen dose to 20 mg tid from 30 mg tid. No increase in spasticity. No increased dyskinesias. No other recent changes. Medications: Current Outpatient Medications on File Prior to Visit Medication Sig - cephALEXin (KEFLEX) 500 mg capsule Take 500 mg by mouth four times daily. - baclofen (LIORESAL) 20 mg tablet Take 1 tablet by mouth three times daily. (Stable on this dose with less confusion; may stay on this dose) - trihexyphenidyl (ARTANE) 2 mg tablet Being tapered off by Dr. Liang - petrolatum,white (WHITE PETROLATUM) ointment Apply 1 application to affected area as needed for Dry Skin (daily as needed for dry skin of legs and other affected areas). - cholecalciferol (VITAMIN D3) 50 mcg (2,000 unit) tablet Take 1 tablet by mouth once daily. - levETIRAcetam (KEPPRA) 500 mg tablet Take 1 tablet by mouth twice daily. - Omeprazole 40 mg capsule Take 1 capsule by mouth twice daily. - triamcinolone acetonide (KENALOG) 0.1 % cream Apply 1 application to affected area twice daily. Apply sparingly to area for rash/itching on left leg. - alendronate (FOSAMAX) 70 mg tablet TAKE 1 TABLET BY MOUTH ONCE A WEEK W/A FULL GLASS OF WATER ON AN EMPTY STOMACH-DO NOT LIE DOWN FOR 30 MINUTES. (MONDAYS) - sertraline (ZOLOFT) 25 mg tablet Take 1 tablet by mouth once daily. - nystatin (MYCOSTATIN) cream Apply to affected area twice daily. Apply till 7 days after rash resolves - carbamide peroxide (DEBROX) 6.5 % otic solution Instill 2 drops into both ears once daily on Thursday and Thursday - calcium-cholecalciferol, D3, (OYSTER SHELL CALCIUM-VITAMIN D) 250-125 mg-unit per tablet TAKE (1) TABLET BY MOUTH ONCE DAILY. - COMPOUNDED PRESCRIPTION Bilateral compression stockings: knee-high, closed toe, 15-20wt. Dx: edema - doxycycline monohydrate (MONODOX) 100 mg capsule Take 1 capsule by mouth twice daily. - predniSONE (DELTASONE) 10 mg tablet Take 1 tablet by mouth once daily. - triamcinolone-dimethicone 0.1-5 % ktoc Apply to affected area. PRN - triamterene-hydrochlorothiazide 37.5-25 mg per capsule NEEDED - tolterodine ER (DETROL LA) 2 mg 24 hr capsule Take 2 mg by mouth once daily. - acetaminophen (TYLENOL) 500 mg tablet Take 500 mg by mouth every 8 hours as needed. - Chlorhexidine Gluconate 0.12 % solution Use 15 mL as instructed twice daily. No current facility-administered medications on file prior to visit. PMH/SH/FH: Reviewed from last visit and unchanged. ROS: Reviewed from prior visit and unchanged. Exam: Vitals: BP 112/68 Pulse 73 Wt 213 lb (96.6 kg) SpO2 93% BMI 36.56 kg/m? Gen: well appearing, in no acute distress Gen: well appearing, in no acute distress MSE: Alert and oriented to person. Speech is fluent with?moderate dysarthria.?Recall is limited to recent and remote events. Fund of knowledge limited.? ? ? MSK: Normal bulk and?tone is paratonic bilateral upper extremities. Intermittent dyskinesias of face and arms noted. ? Gait not testable Studies: CT brain images reviewed today. Labs reviewed today. Assessment/Plan: 1. Hx based on medical records of seizures. No known seizure episodes in > 5 years on dilantin, discontinued d/t rash. Now on keppra 500 mg bid, tolerating well with no seizure episodes, no adverse effects. Continue keppra 500 mg bid. ? 2. 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 Continue baclofen 20 mg tid, discontinued Artane due to complaints of cognitive impairment.. ? 3. Cognitive impairment; worsened in past six month Discontinued Artane, baclofen dose reduced from 30 mg tid to 20 mg tid, labs unremarkable, CT brain unremarkable. Overall symptoms improved since reducing dose of spasticity medications. RTC 6 months. [facility] 08-01-2019 Note HNO ID: [id number] Author: Kendal Liang Service: ? Author Type: Physician Type: Progress Notes Filed: 08/01/2019 4:56 PM Note Text: CC: cognitive impairment, spacticity, seizures. S: Last seen virtually 06/08/19 1. Hx based on medical records of seizures. No known seizure episodes in > 5 years on dilantin, discontinued d/t rash. Now on keppra 500 mg bid, tolerating well with no seizure episodes, no adverse effects. Continue keppra 500 mg bid. ? 2. Spasticity d/t likely cerebral palsy, ?spasticity, distal LE weakness. Ambulates with walker at home. Continue baclofen 30 mg tid, artane 4 mg tid. ? She presents today for follow up There is concern about cognitive impairment. They bring print out of numerous episodes of confusion, sometimes associated with some agitation, they can usually re-direct. Her dyskinesias Are about the same. She has lost her ability to ambulate. She can no longer walk up stairs. She can take about two steps on a flat surface before she can sit down. No seizure episodes. Medications: Current Outpatient Medications on File Prior to Visit Medication Sig - petrolatum,white (WHITE PETROLATUM) ointment Apply 1 application to affected area as needed for Dry Skin (daily as needed for dry skin of legs and other affected areas). - mupirocin (BACTROBAN) 2 % ointment Apply 1 application to affected area twice daily for 10 days. Location: reddened areas on ankle and leg - cephALEXin (KEFLEX) 500 mg capsule Take 1 capsule by mouth four times daily for 10 days. Take with food - cholecalciferol (VITAMIN D3) 50 mcg (2,000 unit) tablet Take 1 tablet by mouth once daily. - baclofen (LIORESAL) 10 mg tablet Take 1 tablet by mouth three times daily. along with 20 mg dose - baclofen (LIORESAL) 20 mg tablet TAKE 1 TABLET BY MOUTH THREE TIMES DAILY W/10MG TABLET TO = 30MG - trihexyphenidyl (ARTANE) 2 mg tablet Take 2 tablets by mouth three times daily. - levETIRAcetam (KEPPRA) 500 mg tablet Take 1 tablet by mouth twice daily. - Omeprazole 40 mg capsule Take 1 capsule by mouth twice daily. - triamcinolone acetonide (KENALOG) 0.1 % cream Apply 1 application to affected area twice daily. Apply sparingly to area for rash/itching on left leg. - alendronate (FOSAMAX) 70 mg tablet TAKE 1 TABLET BY MOUTH ONCE A WEEK W/A FULL GLASS OF WATER ON AN EMPTY STOMACH-DO NOT LIE DOWN FOR 30 MINUTES. (MONDAYS) - sertraline (ZOLOFT) 25 mg tablet Take 1 tablet by mouth once daily. - nystatin (MYCOSTATIN) cream Apply to affected area twice daily. Apply till 7 days after rash resolves - carbamide peroxide (DEBROX) 6.5 % otic solution Instill 2 drops into both ears once daily on Thursday and Thursday - calcium-cholecalciferol, D3, (OYSTER SHELL CALCIUM-VITAMIN D) 250-125 mg-unit per tablet TAKE (1) TABLET BY MOUTH ONCE DAILY. - COMPOUNDED PRESCRIPTION Bilateral compression stockings: knee-high, closed toe, 15-20wt. Dx: edema - doxycycline monohydrate (MONODOX) 100 mg capsule Take 1 capsule by mouth twice daily. (Patient taking differently: Take 1 capsule by mouth once daily. ) - predniSONE (DELTASONE) 10 mg tablet Take 1 tablet by mouth once daily. - triamcinolone-dimethicone 0.1-5 % ktoc Apply to affected area. PRN - triamterene-hydrochlorothiazide 37.5-25 mg per capsule NEEDED - tolterodine ER (DETROL LA) 2 mg 24 hr capsule Take 2 mg by mouth once daily. - acetaminophen (TYLENOL) 500 mg tablet Take 500 mg by mouth every 8 hours as needed. - Chlorhexidine Gluconate 0.12 % solution Use 15 mL as instructed twice daily. No current facility-administered medications on file prior to visit. PMH/SH/FH: Reviewed from last visit and unchanged. ROS: Reviewed from prior visit and unchanged. Exam: Vitals: BP 126/74 Pulse 82 SpO2 91% Gen: well appearing, in no acute distress MSE: Alert and oriented to person. Speech is fluent with moderate dysarthria. Recall is limited to recent and remote events. Fund of knowledge limited. ? ? MSK: Normal bulk and tone is paratonic bilateral upper extremities. Poor participation in LE strength testing w/ poor understanding. Intermittent dyskinesias of face and arms noted. ? Triceps Biceps Hand intrinsic Hip flexion Knee flexion Knee Ext. Papo. Flex Pl. flex Right 5 5 5 4- 5 5 0 0 Left 5 5 5 4- 5 5 0 0 Gait not testable Labs reviewed CBC, cmp from today. Assessment/Plan: 1. Hx based on medical records of seizures. No known seizure episodes in > 5 years on dilantin, discontinued d/t rash. Now on keppra 500 mg bid, tolerating well with no seizure episodes, no adverse effects. Continue keppra 500 mg bid. ? 2. 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 Continue baclofen 30 mg tid, artane 4 mg tid. 3. Cognitive impairment; worsened in past six months, Check ct brain Check tsh, folate, b12, rpr Possibly related to medication Currently on baclofen 3 (more content not included)... [facility] Vitamin D deficiency Unspecified vitamin D deficiency [facility] Encounter for monitoring Dilantin therapy Encounter for therapeutic drug monitoring Physical exam Unspecified general medical examination [facility] Diagnosis Routine medical exam- Primary Routine general medical examination at a health care facility Encounter for immunization Need for other specified prophylactic vaccination against single bacterial disease Need for shingles vaccine Need for prophylactic vaccination and inoculation against other viral diseases Screening for lipid disorders Gastroesophageal reflux disease without esophagitis Esophageal reflux Vitamin D deficiency Unspecified vitamin D deficiency 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 Abnormality of gait 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) Localization-related (focal) (partial) epilepsy and epileptic syndromes with simple partial seizures, without mention of intractable epilepsy History of urinary incontinence Personal history of other disorder of urinary system Physical exam Unspecified general medical examination [facility] Diagnosis Gastroesophageal reflux disease without esophagitis Esophageal reflux Physical deconditioning Debility, unspecified Poor mobility Other ill-defined conditions Cerebral palsy, unspecified type (HCC) [facility]* Diagnosis Low oxygen saturation- Primary Abnormal arterial blood gases Acute cough COVID [facility] Diagnosis Vitamin D deficiency Unspecified vitamin D deficiency [facility] Diagnosis 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) Localization-related (focal) (partial) epilepsy and epileptic syndromes with simple partial seizures, without mention of intractable epilepsy Vitamin D deficiency Unspecified vitamin D deficiency Encounter for therapeutic drug monitoring Screening for lipid disorders [facility] Diagnosis 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 [facility] Diagnosis Physical deconditioning Debility, unspecified Poor mobility Other ill-defined conditions Cerebral palsy, unspecified type (HCC) [facility]* Diagnosis Scabies exposure- Primary Contact with or exposure to other communicable diseases documented in this encounter [facility] note* Diagnosis Gastroesophageal reflux disease without esophagitis Esophageal reflux [facility] Diagnosis 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 [facility] Diagnosis 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) Localization-related (focal) (partial) epilepsy and epileptic syndromes with simple partial seizures, without mention of intractable epilepsy documented [facility] this encounter [facility] Summary Purpose Family History No Family History Records FoundNo Family History Records FoundNo Family History Records Found Advance Directives No Advanced Directives Records FoundDocuments on File Type Date 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 Advance Directive(s) 06/14/2018 12:01 PM Additional Source Comments INFORMATION SOURCE (unrecogn ized section and content) DATE CREATED AUTHOR AUTHOR'S ORGANIZ ATION 06/13/2020 [facility] DATE CREATED AUTHOR AUTHOR'S ORGANIZ ATION 02/05/2023 [facility] Source Comments (unrecognize d section and content) In the event this informatio n is protected by the Federal Confidentiality of Alcohol and Drug Abuse Patient Records regulations: The Federal rules restrict any use of the information to criminally investigate or prosecute any alcohol or drug abuse patient.[facility] the event this information is protected by the Federal Confidentiality of Alcohol and Drug Abuse Patient Records regulations: The Federal rules restrict any use of the information to criminally investigate or prosecute any alcohol or drug abuse patient.[facility] the event this information is protected by the Federal Confidentiality of Alcohol and Drug Abuse Patient Records regulations: The Federal rules restrict any use of the information to criminally investigate or prosecute any alcohol or drug abuse patient.[facility] the event this information is protected by the Federal Confidentiality of Alcohol and Drug Abuse Patient Records regulations: The Federal rules restrict any use of the information to criminally investigate or prosecute any alcohol or drug abuse patient.[facility] the event this information is protected by the Federal Confidentiality of Alcohol and Drug Abuse Patient Records regulations: The Federal rules restrict any use of the information to criminally investigate or prosecute any alcohol or drug abuse patient.[facility] System[facility] the event this information is protected by the Federal Confidentiality of Alcohol and Drug Abuse Patient Records regulations: The Federal rules restrict any use of the information to criminally investigate or prosecute any alcohol or drug abuse patient.[facility] System[facility] the event this information is protected by the Federal Confidentiality of Alcohol and Drug Abuse Patient Records regulations: The Federal rules restrict any use of the information to criminally investigate or prosecute any alcohol or drug abuse patient.[facility] the event this information is protected by the Federal Confidentiality of Alcohol and Drug Abuse Patient Records regulations: The Federal rules restrict any use of the information to criminally investigate or prosecute any alcohol or drug abuse patient.[facility] the event this information is protected by the Federal Confidentiality of Alcohol and Drug Abuse Patient Records regulations: The Federal rules restrict any use of the information to criminally investigate or prosecute any alcohol or drug abuse patient.[facility] System[facility] the event this information is protected by the Federal Confidentiality of Alcohol and Drug Abuse Patient Records regulations: The Federal rules restrict any use of the information to criminally investigate or prosecute any alcohol or drug abuse patient.[facility] SystemIn the event this information is protected by the Federal Confidentiality of Alcohol and Drug Abuse Patient Records regulations: The Federal rules restrict any use of the information to criminally investigate or prosecute any alcohol or drug abuse patient.[facility] System[facility] the event this information is protected by the Federal Confidentiality of Alcohol and Drug Abuse Patient Records regulations: The Federal rules restrict any use of the information to criminally investigate or prosecute any alcohol or drug abuse patient.[facility] SystemIn the event this information is protected by the Federal Confidentiality of Alcohol and Drug Abuse Patient Records regulations: The Federal rules restrict any use of the information to criminally investigate or prosecute any alcohol or drug abuse patient.[facility] SystemIn the event this information is protected by the Federal Confidentiality of Alcohol and Drug Abuse Patient Records regulations: The Federal rules restrict any use of the information to criminally investigate or prosecute any alcohol or drug abuse patient.[facility] SystemIn the event this information is protected by the Federal Confidentiality of Alcohol and Drug Abuse Patient Records regulations: The Federal rules restrict any use of the information to criminally investigate or prosecute any alcohol or drug abuse patient.[facility] SystemIn the event this information is protected by the Federal Confidentiality of Alcohol and Drug Abuse Patient Records regulations: The Federal rules restrict any use of the information to criminally investigate or prosecute any alcohol or drug abuse patient.[facility] SystemIn the event this information is protected by the Federal Confidentiality of Alcohol and Drug Abuse Patient Records regulations: The Federal rules restrict any use of the information to criminally investigate or prosecute any alcohol or drug abuse patient.[facility] SystemIn the event this information is protected by the Federal Confidentiality of Alcohol and Drug Abuse Patient Records regulations: The Federal rules restrict any use of the information to criminally investigate or prosecute any alcohol or drug abuse patient.[facility] SystemIn the event this information is protected by the Federal Confidentiality of Alcohol and Drug Abuse Patient Records regulations: The Federal rules restrict any use of the information to criminally investigate or prosecute any alcohol or drug abuse patient.[facility] SystemIn the event this information is protected by the Federal Confidentiality of Alcohol and Drug Abuse Patient Records regulations: The Federal rules restrict any use of the information to criminally investigate or prosecute any alcohol or drug abuse patient.[facility] SystemIn the event this information is protected by the Federal Confidentiality of Alcohol and Drug Abuse Patient Records regulations: The Federal rules restrict any use of the information to criminally investigate or prosecute any alcohol or drug abuse patient.[facility] SystemIn the event this information is protected by the Federal Confidentiality of Alcohol and Drug Abuse Patient Records regulations: The Federal rules restrict any use of the information to criminally investigate or prosecute any alcohol or drug abuse patient.[facility] SystemIn the event this information is protected by the Federal Confidentiality of Alcohol and Drug Abuse Patient Records regulations: The Federal rules restrict any use of the information to criminally investigate or prosecute any alcohol or drug abuse patient.[facility] SystemIn the event this information is protected by the Federal Confidentiality of Alcohol and Drug Abuse Patient Records regulations: The Federal rules restrict any use of the information to criminally investigate or prosecute any alcohol or drug abuse patient.[facility] SystemIn the event this information is protected by the Federal Confidentiality of Alcohol and Drug Abuse Patient Records regulations: The Federal rules restrict any use of the information to criminally investigate or prosecute any alcohol or drug abuse patient.[facility] SystemIn the event this information is protected by the Federal Confidentiality of Alcohol and Drug Abuse Patient Records regulations: The Federal rules restrict any use of the information to criminally investigate or prosecute any alcohol or drug abuse patient.[facility] SystemIn the event this information is protected by the Federal Confidentiality of Alcohol and Drug Abuse Patient Records regulations: The Federal rules restrict any use of the information to criminally investigate or prosecute any alcohol or drug abuse patient.[facility] SystemIn the event this information is protected by the Federal Confidentiality of Alcohol and Drug Abuse Patient Records regulations: The Federal rules restrict any use of the information to criminally investigate or prosecute any alcohol or drug abuse patient.[facility] SystemIn the event this information is protected by the Federal Confidentiality of Alcohol and Drug Abuse Patient Records regulations: The Federal rules restrict any use of the information to criminally investigate or prosecute any alcohol or drug abuse patient.[facility] SystemIn the event this information is protected by the Federal Confidentiality of Alcohol and Drug Abuse Patient Records regulations: The Federal rules restrict any use of the information to criminally investigate or prosecute any alcohol or drug abuse patient.[facility] SystemIn the event this information is protected by the Federal Confidentiality of Alcohol and Drug Abuse Patient Records regulations: The Federal rules restrict any use of the information to criminally investigate or prosecute any alcohol or drug abuse patient.[facility] SystemIn the event this information is protected by the Federal Confidentiality of Alcohol and Drug Abuse Patient Records regulations: The Federal rules restrict any use of the information to criminally investigate or prosecute any alcohol or drug abuse patient.[facility] SystemIn the event this information is protected by the Federal Confidentiality of Alcohol and Drug Abuse Patient Records regulations: The Federal rules restrict any use of the information to criminally investigate or prosecute any alcohol or drug abuse patient.[facility] SystemIn the event this information is protected by the Federal Confidentiality of Alcohol and Drug Abuse Patient Records regulations: The Federal rules restrict any use of the information to criminally investigate or prosecute any alcohol or drug abuse patient.[facility] SystemIn the event this information is protected by the Federal Confidentiality of Alcohol and Drug Abuse Patient Records regulations: The Federal rules restrict any use of the information to criminally investigate or prosecute any alcohol or drug abuse patient.[facility] SystemIn the event this information is protected by the Federal Confidentiality of Alcohol and Drug Abuse Patient Records regulations: The Federal rules restrict any use of the information to criminally investigate or prosecute any alcohol or drug abuse patient.[facility] SystemIn the event this information is protected by the Federal Confidentiality of Alcohol and Drug Abuse Patient Records regulations: The Federal rules restrict any use of the information to criminally investigate or prosecute any alcohol or drug abuse patient.[facility] SystemIn the event this information is protected by the Federal Confidentiality of Alcohol and Drug Abuse Patient Records regulations: The Federal rules restrict any use of the information to criminally investigate or prosecute any alcohol or drug abuse patient.[facility] SystemIn the event this information is protected by the Federal Confidentiality of Alcohol and Drug Abuse Patient Records regulations: The Federal rules restrict any use of the information to criminally investigate or prosecute any alcohol or drug abuse patient.[facility] SystemIn the event this information is protected by the Federal Confidentiality of Alcohol and Drug Abuse Patient Records regulations: The Federal rules restrict any use of the information to criminally investigate or prosecute any alcohol or drug abuse patient.[facility] SystemIn the event this information is protected by the Federal Confidentiality of Alcohol and Drug Abuse Patient Records regulations: The Federal rules restrict any use of the information to criminally investigate or prosecute any alcohol or drug abuse patient.[facility] SystemIn the event this information is protected by the Federal Confidentiality of Alcohol and Drug Abuse Patient Records regulations: The Federal rules restrict any use of the information to criminally investigate or prosecute any alcohol or drug abuse patient.[facility] SystemIn the event this information is protected by the Federal Confidentiality of Alcohol and Drug Abuse Patient Records regulations: The Federal rules restrict any use of the information to criminally investigate or prosecute any alcohol or drug abuse patient.[facility] SystemIn the event this information is protected by the Federal Confidentiality of Alcohol and Drug Abuse Patient Records regulations: The Federal rules restrict any use of the information to criminally investigate or prosecute any alcohol or drug abuse patient.[facility] SystemIn the event this information is protected by the Federal Confidentiality of Alcohol and Drug Abuse Patient Records regulations: The Federal rules restrict any use of the information to criminally investigate or prosecute any alcohol or drug abuse patient.[facility] SystemIn the event this information is protected by the Federal Confidentiality of Alcohol and Drug Abuse Patient Records regulations: The Federal rules restrict any use of the information to criminally investigate or prosecute any alcohol or drug abuse patient.[facility] SystemIn the event this information is protected by the Federal Confidentiality of Alcohol and Drug Abuse Patient Records regulations: The Federal rules restrict any use of the information to criminally investigate or prosecute any alcohol or drug abuse patient.[facility] SystemIn the event this information is protected by the Federal Confidentiality of Alcohol and Drug Abuse Patient Records regulations: The Federal rules restrict any use of the information to criminally investigate or prosecute any alcohol or drug abuse patient.[facility] SystemIn the event this information is protected by the Federal Confidentiality of Alcohol and Drug Abuse Patient Records regulations: The Federal rules restrict any use of the information to criminally investigate or prosecute any alcohol or drug abuse patient.[facility] SystemIn the event this information is protected by the Federal Confidentiality of Alcohol and Drug Abuse Patient Records regulations: The Federal rules restrict any use of the information to criminally investigate or prosecute any alcohol or drug abuse patient.[facility] SystemIn the event this information is protected by the Federal Confidentiality of Alcohol and Drug Abuse Patient Records regulations: The Federal rules restrict any use of the information to criminally investigate or prosecute any alcohol or drug abuse patient.[facility] SystemIn the event this information is protected by the Federal Confidentiality of Alcohol and Drug Abuse Patient Records regulations: The Federal rules restrict any use of the information to criminally investigate or prosecute any alcohol or drug abuse patient.[facility] SystemIn the event this information is protected by the Federal Confidentiality of Alcohol and Drug Abuse Patient Records regulations: The Federal rules restrict any use of the information to criminally investigate or prosecute any alcohol or drug abuse patient.[facility] Reason for Visit (unrecogniz ed section and content) Reason Comments Orders PT POC extension Reason Comments [employer] Reason Comments Jail Re-Certification Reason Comments verbal orders Reason Comments [employer] requesting records Reason Comments Orders Home Health Point of Care Results Reason Onset Date Comments Refill Request 08/06/2021 Reason Comments HH POC OT Reason Onset Date Comments Refill Request 08/16/2021 Reason Comments Orders Reason Comments OT Orders Reason Comments Patient Update Reason Comments Physical Reason Comments OT orders Reason Comments Patient Request Reason Comments Refill Request Reason Onset Date Comments Refill Request 12/20/2021 Reason Comments OT Recert POC Reason Onset Date Comments Refill Request 02/04/2022 Reason Comments Kale wrist braces Reason Comments [facility] Home Health/verbal orders Reason Comments OT Recert POC Orders Reason Onset Date Comments Opened In Error 03/04/2022 Reason Comments Home Health Point of Care Results Reason Comments [facility] Reason Comments low O2 sat Reason Comments Medication Problem Reason Comments Medication Request Reason Comments New Rx Request Reason Comments OT home health order Reason Comments Chlorhexidine Reason Onset Date Comments Refill Request 07/30/2022 Reason Comments Follow Up Reason Onset Date Comments Home Care Management 08/27/2022 [facility] 07/01/2022-08/29/2022 Reason Onset Date Comments Refill Request 08/27/2022 Reason Comments verbal orders for OT Reason Comments Home Health update Reason Comments scabies tx Reason Comments [facility] OT Delay of Care Reason Onset Date Comments Home Care 12/13/2022 [facility] 10/29/2022-12/27/2022 Reason Comments [facility] OT Plan of Care Care Teams (unrecognized sec tion and content) Supervisor Inspecting Relationship Specialty Start Date End Date Jorgito Robertson MD [address] [place] [address] PCP - General 05/22/06 Kendal Liang MD Referring Neurology 04/10/20 Supervisor Inspecting Relationship Specialty Start Date End Date Jorgito Robertson MD [address] [place] [address] PCP - General 05/22/06 Kendal Liang MD Referring Neurology 04/10/20 Supervisor Inspecting Relationship Specialty Start Date End Date Jorgito Robretson MD [address] [place] [address] PCP - General 05/22/06 Kendal Liang MD Referring Neurology 04/10/20 Supervisor Inspecting Relationship Specialty Start Date End Date Jorgito Robertson MD [address] [place] [address] PCP - General 05/22/06 Kendal Liang MD Referring Neurology 04/10/20 Supervisor Inspecting Relationship Specialty Start Date End Date Jorgito Robertson MD [address] [facility] [place] [address] PCP - General 05/22/06 Kendal Liang MD Referring Neurology 04/10/20 Supervisor Inspecting Relationship Specialty Start Date End Date Jorgito Robertson MD [address] [place] [address] PCP - General 05/22/06 Kendal Liang MD Referring Neurology 04/10/20 Supervisor Inspecting Relationship Specialty Start Date End Date Jorgito Robertson MD [address] [place] [address] PCP - General 05/22/06 Kendal Liang MD Referring Neurology 04/10/20 Supervisor Inspecting Relationship Specialty Start Date End Date Jorgito Robertson MD [address] [place] [address] PCP - General 05/22/06 Kendal Liang MD [address] [place] [address] Referring Neurology 04/10/20 Supervisor Inspecting Relationship Specialty Start Date End Date Jorgito Robertson MD [address] [place] [address] PCP - General 05/22/06 Kendal Liang MD [address] [place] [address] Referring Neurology 04/10/20 Supervisor Inspecting Relationship Specialty Start Date End Date Jorgito Robertson MD [address] [place] [address] PCP - General 05/22/06 Kendal Liang MD [address] [place] [address] Referring Neurology 04/10/20 Supervisor Inspecting Relationship Specialty Start Date End Date Jorgito Robertson MD [address] [place] [address] PCP - General 05/22/06 Kendal Liang MD [address] [facility] [place] [address] Referring Neurology 04/10/20 Supervisor Inspecting Relationship Specialty Start Date End Date Jorgito Robertson MD [address] [place] [address] PCP - General 05/22/06 Kendal Liang MD [address] [facility] [place] [address] Referring Neurology 04/10/20 Supervisor Inspecting Relationship Specialty Start Date End Date Jorgito Robertson MD [address] [facility] [place] [address] PCP - General 05/22/06 Kendal Liang MD [address] [place] [address] Referring Neurology 04/10/20 Supervisor Inspecting Relationship Specialty Start Date End Date Jorgito Robertson MD [address] [place] [address] PCP - General 05/22/06 Kendal Liang MD [address] [facility] [place] [address] Referring Neurology 04/10/20 Supervisor Inspecting Relationship Specialty Start Date End Date Jorgito Robertson MD [address] [place] [address] PCP - General 05/22/06 Kendal Liang MD [address] [place] [address] Referring Neurology 04/10/20 Supervisor Inspecting Relationship Specialty Start Date End Date Jorgito Robertson MD [address] [place] [address] PCP - General 05/22/06 Kendal Liang MD [address] [place] [address] Referring Neurology 04/10/20 Supervisor Inspecting Relationship Specialty Start Date End Date Jorgito Robertson MD [address] [place] [address] PCP - General 05/22/06 Kendal Liang MD [address] [place] [address] Referring Neurology 04/10/20 Supervisor Inspecting Relationship Specialty Start Date End Date Jorgito Robertson MD [address] [place] [address] PCP - General 05/22/06 Kendal Liang MD [address] [place] [address] Referring Neurology 04/10/20 Supervisor Inspecting Relationship Specialty Start Date End Date Jorgito Robertson MD [address] [place] [address] PCP - General 05/22/06 Kendal Liang MD [address] [place] [address] Referring Neurology 04/10/20 Supervisor Inspecting Relationship Specialty Start Date End Date Jorgito Robertson MD [address] [place] [address] PCP - General 05/22/06 Kendal Liang MD [address] [place] [address] Referring Neurology 04/10/20 Supervisor Inspecting Relationship Specialty Start Date End Date Jorgito Robertson MD [address] [place] [address] PCP - General 05/22/06 Kendal Liang MD [address] [place] [address] Referring Neurology 04/10/20 Supervisor Inspecting Relationship Specialty Start Date End Date Jorgito Robertson MD [address] [place] [address] PCP - General 05/22/06 Kendal Liang MD [address] [place], [place] [address] Referring Neurology 04/10/20 Supervisor Inspecting Relationship Specialty Start Date End Date Jorgito Robertson MD [address] [place], [place] [address] PCP - General 05/22/06 Kendal Liang MD [address] [place] [address] Referring Neurology 04/10/20 FOR RECORDS PERTAINING TO PATIENTS WHO ARE OR HAVE BEEN ENROLLED IN A CHEMICAL DEPENDENCY/SUBSTANCEABUSE PROGRAM, SOME INFORMATION MAY BE OMITTED. This clinical summary was aggregated from multiple sources. Caution should be exercised in using it in the provision of clinical care. This summary normalizes information from multiple sources, and as a consequence, information in this document may materially change the coding, format and clinical context of patient data. In addition, data may be omitted in some cases. CLINICAL DECISIONS SHOULD BE BASED ON THE PRIMARY CLINICAL RECORDS. [facility]. provides no warranty or guarantee of the accuracy or completeness of information in this document.
[2023-02-19] MEDS: Ondansetron 4 MG/2 ML Vial IV (08:10)
[2023-02-19] MEDS: 0.9% Normal Saline (1000mL) 1,000 ML 150 ML IV (08:10)
[2023-02-19] MEDS: Pantoprazole Sodium 40 MG in 0.9% Normal Saline (100mL MB+) 100 ML 330 MG IV ×2 (08:10→20:43)
[2023-02-19 08:15] LABS: AST(SGOT) 10 U/L (15-37); Alanine Aminotransfer ALT/SGPT 17 U/L (13-56); Alkaline Phosphatase 95 U/L (45-117); Anion Gap 5 (5-15); BUN 41 mg/dL (7-18); BUN/Creat Ratio 67.2 RATIO (10-20); Bilirubin, Direct 0.11 mg/dL (0.00-0.30); Calcium,Total 8.9 mg/dL (8.5-10.1); Chloride 106 mmol/L (98-107); Creatinine, Serum 0.61 mg/dL (0.55-1.02); EST Glomerular Filtration Rate 103 mL/min (>60); Est Glom Filt Rate - Afr Amer 125 mL/min (>60); Estimated Creatinine Clearance 73.87 ml/min; Globulin 3.7 g/dL (2.2-4.2); Glucose 103 mg/dL (74-106); Lipase 30 U/L (13-75); Potassium 4.7 mmol/L (3.5-5.1); Protein, Total 6.7 g/dL (6.4-8.2); Sodium Level 138 mmol/L (136-145)
[2023-02-19 09:06] LABS: Mucous, Urine 0 SEEN /hpf (<or=2+); Red Blood Cells-Urine 0 SEEN /hpf (0-5); Squamous Epithelial Cells - UA 0 SEEN /hpf (5-10)
[2023-02-19 09:12] LABS: Color, Urine Yellow (Yellow); Glucose, Dipstick Normal (Normal); Ketone-Dipstick Negative (Negative); Leukocyte Esterase-Dipstick 25 /ul (Negative); Nitrite-Dipstick Negative (Negative); Occult Blood-Urine Negative /ul (Negative); Protein-Dipstick Negative (Negative); Urine Bilirubin Dipstick Negative (Negative); Urine Clarity Sl. Cloudy (Clear); Urine Urobilinogen Normal (Normal)
[2023-02-19 09:18] LABS: Bacteria 4+ /hpf (None Seen); White Blood Cells 5-10 SEEN /hpf (0-5)
[2023-02-19 11:09] VITALS: BP 126/75; PULSE 89; RESP 22; TEMP 36.8; O2SAT 94
--- NOTE | 2023-02-19 11:36 | NURSING ---
DR SALVADOR FOR DR HERNANDEZ
--- NOTE | 2023-02-19 11:39 | PCM.HP.STD ---
HPI - General General Date of Admission: 02/19/23 Date of Service: 02/19/23 Chief Complaint: Coffee-ground emesis HPI Narrative NICHOLAS MEANS, is a 67 F with past medical history signal for seizure disorder, cerebral palsy currently resident at the custodial who was brought in with nausea and vomiting. Patient symptoms started on the morning of her presentation contents of her vomitus was coffee-ground. He was therefore brought to the emergency department. CT of the abdomen and pelvis obtained without contrast demonstrated large hiatal hernia and findings suggestive of gallstones and bibasilar atelectasis. Patient was started on Protonix drip admitted to regular nursing floor. [facility] Medical History Cerebral palsy Cervical spondylosis Dystonia Epilepsy Hiatal hernia Hirsutism Idiopathic mild intellectual disability Leukopenia Seizure Thrombocytopenia Home Medications alendronate 70 mg-cholecalciferol (vitamin D3) 2,800 unit tablet (Fosamax Plus D) 1 ea PO Q7D 12/17/14 [History Last Taken Unknown] baclofen 10 mg tablet 20 mg PO TID 12/17/14 [History Last Taken Unknown] carbamide peroxide 6.5 % ear drops (Ear Drops (carbamide peroxide)) 15 ml OT QWEEK 12/17/14 [History Last Taken Unknown] chlorhexidine gluconate 0.12 % mouthwash (Peridex) 15 ml MM BID 12/17/14 [History Last Taken Unknown] cholecalciferol (vitamin D3) 25 mcg (1,000 unit) tablet (Vitamin D3) 2,000 unit PO DAILY 12/17/14 [History Last Taken Unknown] calcium carbonate 250 mg-vitamin D3 3.125 mcg (125 unit) tablet (Oyster Shell Calcium-Vitamin D3) 1 ea PO DAILY 10/13/16 [History Last Taken Unknown] levetiracetam 500 mg tablet 500 mg PO BID 09/28/19 [History Last Taken Unknown] Triamcinolone 0.1% Cream [Kenalog] 1 applic topical BID 04/12/20 [History Last Taken Unknown] triamterene 37.5 mg-hydrochlorothiazide 25 mg tablet 1 tab PO DAILY PRN CLEMENTINE EDEMA 04/12/20 [History Last Taken Unknown] sertraline 25 mg tablet 50 mg PO DAILY 01/22/21 [History Last Taken Unknown] Dupixent Pen See Rx Instructions .Route .COMPLEX 01/04/22 [History Last Taken Unknown] ondansetron 4 mg disintegrating tablet 4 mg PO Q6H PRN nausea and vomiting #7 tabs 01/04/22 [Rx Last Taken Unknown] tolterodine 2 mg capsule,extended release 24 hr 2 mg PO DAILY 01/04/22 [History Last Taken Unknown] ondansetron 4 mg disintegrating tablet 4 mg PO Q6H PRN nausea and vomiting 02/19/23 [History Last Taken Unknown] pantoprazole 40 mg tablet,delayed release 40 mg PO DAILY 02/19/23 [History Last Taken Unknown] Allergy/AdvReac Type Severity Reaction Status Date / Time doxycycline Allergy Hives Verified 02/19/23 07:57 Social History Smoking Status: Never smoker ROS ROS Narrative GENERAL: denies fever, chills, night sweats, weight loss, anorexia HEENT: denies headache, sinus congestion, or drainage, dysphagia RESPIRATORY: denies cough, sputum production, shortness of breath, CARDIAC: denies chest pain, palpitations, orthopnea, PND GASTROINTESTINAL: Nausea and vomiting GENITOURINARY: denies dysuria, urgency, frequency, heamaturia EXTREMITY: denies swelling MUSCULOSKELETAL: denies current joint pain or tenderness NEUROLOGIC: denies focal numbness, weakness, tingling HEMATOLOGIC: denies easy bruising and/or hemorrhage INTEGUMENT: denies rashes PSYCHIATRIC: denies suicidal or homicidal ideation Vital Signs Vital Signs Vital Signs: 02/19/23 07:25 02/19/23 11:09 Temperature 97.1 F L 98.3 F Temperature Source Temporal Oral Pulse Rate 93 89 Respiratory Rate 15 22 H Blood Pressure 128/70 H 126/75 H Blood Pressure Mean 89 92 Pulse Ox 95 94 Oxygen Delivery Method Room Air Room Air Weight Weight: 94.2 kg Body Mass Index (BMI) 35.6 Physical Exam Narrative GENERAL: Patient is cooperative HEENT: Atraumatic; normocephalic EYES; Anicteric, Normal Conjunctiva NECK; supple, normal thyroid, RESPIRATORY: Diminished to auscultation CARDIOVASCULAR: Regular S1 S2, GI: soft, normoactive bowel sounds, : No Renal angle tenderness; EXTREMITIES: No edema, no clubbing, MUSCULOSKELETAL: no muscle wasting NEURO: Awake; no lateralizing signs. SKIN: No Rash PSYCH; Flat affect Results Lab / Micro Data 02/19/23 07:52 02/19/23 07:52 Labs: Laboratory Results - last 24 hr 02/19/23 07:52: WBC 10.8, RBC 4.32, Hgb 12.3, Hct 38.1, MCV 88.2, MCH 28.5, MCHC 32.3, RDW Std Deviation 42.1, RDW Coeff of Chel 13.1, Plt Count 295, MPV 11.1, Immature Gran % (Auto) 0.300, Neut % (Auto) 75.1 H, Lymph % (Auto) 16.9 L, [place] % (Auto) 6.1, Eos % (Auto) 1.0, Baso % (Auto) 0.6, Absolute Neuts (auto) 8.1 H, Absolute Lymphs (auto) 1.83, Nucleated RBC % 0, Sodium 138, Potassium 4.7, Chloride 106, Carbon Dioxide 27.0, Anion Gap 5, BUN 41 H, Creatinine 0.61, Estim Creat Clear Calc 73.87, Est GFR (MDRD) Af Amer 125, Est GFR (MDRD) Non-Af 103, BUN/Creatinine Ratio 67.2 H, Glucose 103, Calcium 8.9, Total Bilirubin 0.50, Direct Bilirubin 0.11, AST 10 L, ALT 17, Alkaline Phosphatase 95, Total Protein 6.7, Albumin 3.0 L, Globulin 3.7, Lipase 30 02/19/23 08:58: Urine Color Yellow, Urine Clarity Sl. Cloudy, Urine pH 8.0, Ur Specific [place] 1.010, Urine Protein Negative, Urine Glucose (UA) Normal, Urine Ketones Negative, Urine Occult Blood Negative, Urine Nitrite Negative, Urine Bilirubin Negative, Urine Urobilinogen Normal, Ur Leukocyte Esterase 25 H, Urine RBC 0 SEEN, Urine WBC 5-10 SEEN, Ur Squamous Epith Cells 0 SEEN, Urine Bacteria 4+, Urine Mucus 0 SEEN Micro: Microbiology 02/19/23 08:30 Mucosa - Nose SARS-CoV-2, Influenza & RSV (PCR) - Final 02/19/23 08:50 Stool Stool Occult Blood (WAQAS) - Final Imagaing Radiology Impression Abdomen/Pelvis CT 02/19/23 07:40 IMPRESSION: Large hiatal hernia. Findings suggestive of a gallstones. Bibasilar atelectasis. Electronically Signed: Reilly Camarillo MD at 8:37 EST , Assessment & Plan Assessment/Plan (1) Upper GI bleed: (2) Bacteriuria: PLAN: Plan Patient is a 67-year-old lady with history of cerebral palsy resident at the custodial brought in with nausea and vomiting with coffee-ground emesis 1. Upper GI bleed ? Patient has been admitted to regular nursing floor. Started on Protonix drip ordered H&H every 6 consult placed to GI Dr. Friend was notified from the ED. Patient will be kept n.p.o. pending evaluation by GI 2. Acute cystitis ? Patient started on ceftriaxone urine culture sent 3. Large hiatal hernia ? CAT scan findings, patient is on PPI did continue 4. Cholelithiasis ? Right upper quadrant ultrasound ordered for confirmation 5. Seizure disorder ? Patient is on Keppra did continue 6. Cerebral palsy ? Patient is quite functional and is currently a resident of a custodial 7. Hypertension - Blood pressure controlled, home medications continued with dose adjustment as needed 8. DVT prophylaxis ? Bilateral SCDs for now avoid chemoprophylaxis given patient presentation Time spent in the patient's overall evaluation,decision-making process, review of diagnostic data, adjustment of management, discussion with other providers, nursing nursing and ancillary staff involved in patient's care documentation, 75 Minutes Advance planning; did discuss attendance from the custodial as well as patient documentation regarding advanced directives as well as CODE STATUS. Did explain the various scenarios involved ( FULL CODE, DNR CCA, DNR CCA with no intubation, and DNR CC and what each meant) plans for patient to remain full code. Order was placed. Time spent on discussion 18 minutes. Charges/Coding Visit Charges Inpatient E&M: 89710 Init Hosp L3 Procedures Hospitalists Procedures: 59970 Advncd Care Plan 30 Min
--- NOTE | 2023-02-19 11:40 | NURSING ---
MED SURG UPPER GI BLEED KITJEN
[2023-02-19 12:57] LABS: Hematocrit 35.4 % (37-47); Hemoglobin 11.2 g/dL (12.0-15.0)
--- NOTE | 2023-02-19 13:39 | NURSING ---
med surg kittoe ugi bleed
[2023-02-19 13:52] VITALS: BP 140/76; PULSE 92; RESP 20; TEMP 36.8; O2SAT 95
[2023-02-19 14:25] VITALS: BMI 33.4
[2023-02-19 14:47] VITALS: BP 118/94; PULSE 91; RESP 18; TEMP 36.6; O2SAT 96
[2023-02-19] MEDS: Dext 5%-0.45% NS 1,000 ML 125 ML IV ×2 (16:45→20:43)
[2023-02-19] MEDS: Ceftriaxone 1 GM/50 ML BAG IV (16:45)
[2023-02-19] MEDS: Baclofen 10 MG Tablet 20 MG PO (16:51)
[2023-02-19] MEDS: Tolterodine Tartrate 2 MG CAP.SA PO (17:17)
[2023-02-19 18:42] LABS: Hematocrit 34.5 % (37-47); Hemoglobin 11.1 g/dL (12.0-15.0)
[2023-02-19 20:25] VITALS: PULSE 88
[2023-02-19 20:30] VITALS: BP 142/85; PULSE 89; RESP 18; TEMP 37.3; O2SAT 93
[2023-02-19] MEDS: levETIRAcetam 500 MG Tablet PO (22:24)
[2023-02-20] VITALS (9 sets, daily range): BP systolic 98–128; BP diastolic 53–65; PULSE 72–87; RESP 16; TEMP 36.4–37; O2SAT 93–97
--- NOTE | 2023-02-20 | GASB_PTH ---
PATHOLOGY RESULTS PATIENT: NICHOLAS MEANS LOC: MS3 U#:[id number] AGE/SX: 67/F ROOM: MD319 RE02/19/[address]: Dr. Jett Kitchen MD : 1955 BED: 1 DIS: 02/21/2023 SPEC #: [id number] RECD: 02/20/23 12:58 STATUS: ALYCIA REQ #: [id number] AMANDA: 02/20/23 00:[address]: Ethan Sanabria DEPT: SURGICAL PATHOLOGY RECD BY: Juan Ramon Gutierrez ENTERED: 02/20/23 12:58 SP TYPE: Gastric Bx OTHR DR: MD Dr. Griselda Roberts MD Dr. Rahsaan Friend, DO Tissues: Gastric mucous membrane Procedures: Surgery Specimen Level IV Comments: @ Ordering doctor for SUIV edited from to @ by SHELLIE at 02/20/23 1337 @ Submitting doctor edited from to @ by SHELLIE at 02/20/23 1337 HEADER OPERATION: EGD with polypectomy PRE-OP DIAGNOSIS: Upper GI bleed TISSUE SUBMITTED: Lesser curvature polyp MICROSCOPIC DIAGNOSIS Gastric polyp, lesser curvature of stomach, biopsy: Hyperplastic polyp, inflamed. AM:heather 02/23/2023 COMMENT The results of immunohistochemistry for Helicobacter pylori will be reported separately ([id number]). MICROSCOPIC DESCRIPTION Slides are reviewed. GROSS DESCRIPTION Received in fixative is one container labeled with the patient's name and designated lesser curvature polyp. The specimen consists of a covarrubias-pink polyp measuring 0.6 x 0.6 x 0.4 cm. The specimen is totally submitted in one cassette. / SJ:heather 02/20/23 TC:1 CPT: 23105
[2023-02-20 00:37] LABS: Hematocrit 31.9 % (37-47); Hemoglobin 10.2 g/dL (12.0-15.0)
[2023-02-20] MEDS: Dext 5%-0.45% NS 1,000 ML 125 ML IV (05:02)
[2023-02-20 05:18] LABS: Absolute Lymphocyte Count 2.13 X10^3/uL (0.83-4.51); Absolute Neutrophil Count 4.9 X10^3/uL (2.0-7.7); Basophil# 0.05 X10^3/uL; Basophil% 0.6 % (0-1); Eosinophil# 0.12 X10^3/uL; Eosinophils% 1.5 % (0-5); Hematocrit 30.6 % (37-47); Lymphocyte # 2.13 X10^3/ul (0.83-4.51); Lymphocyte % 27.5 % (19-41); Mean Corp Hgb Conc 32.7 g/dL (32-36); Mean Corpuscular Hgb 28.7 pg (27.0-32.0); Mean Corpuscular Volume 87.9 fL (81-99); Mean Platelet Vol. 11.4 fl (6.2-12.0); Monocyte# 0.58 X10^3/uL; Monocyte% 7.5 % (0-10); NRBC Flagged by Analyzer 0 % (0-5); Neutrophil # 4.86 X10^3/uL (2.7-7.7); Neutrophil % 62.8 % (47-70); Platelet Count 236 K/mm3 (150-450); RBC Distribution Width CV 13.2 % (11.6-14.6); RBC Distribution Width SD 42.4 fl (35.1-43.9); Red Blood Count 3.48 M/mm3 (4.2-5.4); White Blood Count 7.8 K/mm3 (4.4-11.0)
[2023-02-20 05:51] LABS: AST(SGOT) 12 U/L (15-37); Alanine Aminotransfer ALT/SGPT 12 U/L (13-56); Albumin, Serum 2.7 g/dL (3.2-5.0); Alkaline Phosphatase 75 U/L (45-117); Anion Gap 4 (5-15); BUN 15 mg/dL (7-18); BUN/Creat Ratio 29.4 RATIO (10-20); Bilirubin, Direct 0.11 mg/dL (0.00-0.30); Calcium,Total 7.7 mg/dL (8.5-10.1); Chloride 109 mmol/L (98-107); Creatinine, Serum 0.51 mg/dL (0.55-1.02); EST Glomerular Filtration Rate 127 mL/min (>60); Est Glom Filt Rate - Afr Amer 153 mL/min (>60); Estimated Creatinine Clearance 71.39 ml/min; Globulin 2.9 g/dL (2.2-4.2); Glucose 115 mg/dL (74-106); Magnesium 1.9 mg/dL (1.6-2.6); Phosphorus 2.9 mg/dL (2.5-4.9); Potassium 3.4 mmol/L (3.5-5.1); Protein, Total 5.6 g/dL (6.4-8.2); Sodium Level 140 mmol/L (136-145)
--- NOTE | 2023-02-20 07:49 | PN.HOSP_ITS ---
Reason for Visit Reason for Visit: Diagnoses Gastrointestinal hemorrhage, unspecified (02/19/23) Bacteriuria (02/19/23) Subjective Subjective Patient is a 67-year-old lady with history of cerebral palsy resident at the residential brought in with nausea and vomiting with coffee-ground emesis Hemoglobin on admission was 11.2 down to 10.0. Patient was also found to have acute cystitis for which patient has been started on ceftriaxone consult placed to GI on admission Objective Data Objective Data Vital Signs: Vital Signs Temp Pulse Resp BP Pulse Ox O2 Del Method 98.6 F 84 16 124/53 H 94 Room Air 02/20/23 05:20 02/20/23 05:20 02/20/23 05:20 02/20/23 05:20 02/20/23 05:20 02/20/23 05:20 Oxygen Delivery Method Room Air Weight: 88.3 kg Body Mass Index (BMI) 33.4 Intake & Output: Intake and Output for Last 24 Hours 02/18/23 02/19/23 02/20/23 23:59 23:59 23:59 Intake Total 1701.25 / 2501.25 1800 / 1800 Output Total 250 / 650 850 / 850 Balance 1451.25 / 1851.25 950 / 950 Lab / Micro Data 02/20/23 04:10 02/20/23 04:10 Labs: Laboratory Results - last 24 hr 02/19/23 07:52: WBC 10.8, RBC 4.32, Hgb 12.3, Hct 38.1, MCV 88.2, MCH 28.5, MCHC 32.3, RDW Std Deviation 42.1, RDW Coeff of Chel 13.1, Plt Count 295, MPV 11.1, Immature Gran % (Auto) 0.300, Neut % (Auto) 75.1 H, Lymph % (Auto) 16.9 L, [place] % (Auto) 6.1, Eos % (Auto) 1.0, Baso % (Auto) 0.6, Absolute Neuts (auto) 8.1 H, Absolute Lymphs (auto) 1.83, Nucleated RBC % 0, Sodium 138, Potassium 4.7, Chloride 106, Carbon Dioxide 27.0, Anion Gap 5, BUN 41 H, Creatinine 0.61, Estim Creat Clear Calc 73.87, Est GFR (MDRD) Af Amer 125, Est GFR (MDRD) Non-Af 103, BUN/Creatinine Ratio 67.2 H, Glucose 103, Calcium 8.9, Total Bilirubin 0.50, Direct Bilirubin 0.11, AST 10 L, ALT 17, Alkaline Phosphatase 95, Total Protein 6.7, Albumin 3.0 L, Globulin 3.7, Lipase 30 02/19/23 08:58: Urine Color Yellow, Urine Clarity Sl. Cloudy, Urine pH 8.0, Ur Specific [place] 1.010, Urine Protein Negative, Urine Glucose (UA) Normal, Urine Ketones Negative, Urine Occult Blood Negative, Urine Nitrite Negative, Urine Bilirubin Negative, Urine Urobilinogen Normal, Ur Leukocyte Esterase 25 H, Urine RBC 0 SEEN, Urine WBC 5-10 SEEN, Ur Squamous Epith Cells 0 SEEN, Urine Bacteria 4+, Urine Mucus 0 SEEN 02/19/23 12:48: Hgb 11.2 L, Hct 35.4 L 02/19/23 18:37: Hgb 11.1 L, Hct 34.5 L 02/20/23 00:28: Hgb 10.2 L, Hct 31.9 L 02/20/23 04:10: WBC 7.8, RBC 3.48 L, Hgb 10.0 L, Hct 30.6 L, MCV 87.9, MCH 28.7, MCHC 32.7, RDW Std Deviation 42.4, RDW Coeff of Chel 13.2, Plt Count 236, MPV 11.4, Immature Gran % (Auto) 0.100, Neut % (Auto) 62.8, Lymph % (Auto) 27.5, [place] % (Auto) 7.5, Eos % (Auto) 1.5, Baso % (Auto) 0.6, Absolute Neuts (auto) 4.9, Absolute Lymphs (auto) 2.13, Nucleated RBC % 0, Sodium 140, Potassium 3.4 L , Chloride 109 H, Carbon Dioxide 27.0, Anion Gap 4 L, BUN 15, Creatinine 0.51 L, Estim Creat Clear Calc 71.39, Est GFR (MDRD) Af Amer 153, Est GFR (MDRD) Non-Af 127, BUN/Creatinine Ratio 29.4 H, Glucose 115 H, Calcium 7.7 L, Phosphorus 2.9, Magnesium 1.9, Total Bilirubin 0.40, Direct Bilirubin 0.11, AST 12 L, ALT 12 L, Alkaline Phosphatase 75, Total Protein 5.6 L, Albumin 2.7 L, Globulin 2.9 Micro: Microbiology 02/19/23 08:30 Mucosa - Nose SARS-CoV-2, Influenza & RSV (PCR) - Final 02/19/23 08:50 Stool Stool Occult Blood (WAQAS) - Final Radiography Diagnostic Testing: Radiology Impression Abdomen/Pelvis CT 02/19/23 07:40 IMPRESSION: Large hiatal hernia. Findings suggestive of a gallstones. Bibasilar atelectasis. Electronically Signed: Reilly Camarillo MD at 8:37 EST , Physical Exam Narrative GENERAL: Patient is cooperative HEENT: Atraumatic; normocephalic EYES; Anicteric, Normal Conjunctiva NECK; supple, normal thyroid, RESPIRATORY: Diminished to auscultation CARDIOVASCULAR: Regular S1 S2, GI: soft, normoactive bowel sounds, : No Renal angle tenderness; EXTREMITIES: No edema, no clubbing, MUSCULOSKELETAL: no muscle wasting NEURO: Awake; no lateralizing signs. SKIN: No Rash PSYCH; Flat affect Assessment & Plan Assessment/Plan (1) Upper GI bleed: (2) Bacteriuria: PLAN: Plan Patient is a 67-year-old lady with history of cerebral palsy resident at the residential brought in with nausea and vomiting with coffee-ground emesis 1. Upper GI bleed ? Patient has been admitted to regular nursing floor. Started on Protonix drip ordered H&H every 6 consult placed to GI Dr. Friend was notified from the ED. Patient will be kept n.p.o. pending evaluation by GI ? 02/20/2023;Hemoglobin on admission was 11.2 down to 10.0. Consult placed to GI 2. Acute cystitis ? Patient started on ceftriaxone urine culture sent 3. Large hiatal hernia ? CAT scan findings, patient is on PPI did continue 4. Cholelithiasis ? Right upper quadrant ultrasound ordered for confirmation 5. Seizure disorder ? Patient is on Keppra did continue 6. Cerebral palsy ? Patient is quite functional and is currently a resident of a residential 7. Hypertension - Blood pressure controlled, home medications continued with dose adjustment as needed 8. DVT prophylaxis ? Bilateral SCDs for now avoid chemoprophylaxis given patient presentation Time spent in the patient's overall evaluation,decision-making process, review of diagnostic data, adjustment of management, discussion with other providers, nursing nursing and ancillary staff involved in patient's care documentation, 50 Minutes Charges/Coding Visit Charges Inpatient E&M: 96067 [facility] Hosp L3
[2023-02-20] MEDS: Menthol/Lanolin/Calamine/Znox 113 GM Tube 1 APPLIC TOPICAL ×2 (08:33→20:22)
[2023-02-20] MEDS: Pantoprazole Sodium 40 MG in 0.9% Normal Saline (100mL MB+) 100 ML 330 MG IV ×2 (08:33→20:21)
[2023-02-20] MEDS: Ceftriaxone 1 GM/50 ML BAG IV (09:24)
[2023-02-20] MEDS: Lactated Ringers 1,000 ML 15 ML IV (11:30)
--- NOTE | 2023-02-20 11:30 | IMM_PTH ---
PATHOLOGY RESULTS PATIENT: NICHOLAS MEANS LOC: MS3 U#:[id number] AGE/SX: 67/F ROOM: [facility] RE02/19/[address]: Dr. Jett Kitchen MD : 1955 BED: 1 DIS: 02/21/2023 SPEC #: [id number] RECD: 02/20/23 13:37 STATUS: ALYCIA REQ #: [id number] AMANDA: 02/20/23 11:[address]: Ra Ellyhsaan DEPT: IMMUNOHISTOCHEMISTRY RECD BY: Noemy Jones ENTERED: 02/20/23 13:38 SP TYPE: IMMUNO OTHR DR: MD Dr. Griselda Roberts MD Tissues: Stomach, NOS Procedures: H Pylori (initial) PHYSICIAN & INSTITUTION [place] [id number] SPECIMEN INFORMATION: Tissue Source: Lesser curvature polyp Clinical Info: Upper GI bleed Specimen Number: [id number] CPT code: 33835 METHODOLOGY: Deparaffinized sections of prefer/formalin-fixed tissue or PAP/DQ stained slides are incubated with monoclonal/polyclonal antibodies/oligonucleotide probes. Localization is made via biotin free immunoperoxidase method. Appropriate controls are performed and reacted as expected. Results on target cell population are indicated in the following table: RESULTS: ANTIBODY / CLONE RESULT H Pylori (polyclonal) negative These tests were developed and their performance characteristics determined by [facility]. They may not have been cleared or approved by the U.S. Food and Drug Administration. The FDA has determined that such clearance or approval is not necessary. The above immunohistochemical/dualISH markers are ordered and reviewed by the Pathologist. INTERPRETATION: Lesser curvature polyp, biopsy: Negative for Helicobacter pylori organisms. AM:heather 02/23/2023
--- NOTE | 2023-02-20 12:26 | OP.EGD_ITS ---
Patient Name: Brynn Woods Procedure Date: 02/20/2023 11:24 AM Date of : 1955 Age: 67 Procedure: Upper GI endoscopy Indications: Coffee-ground emesis Providers: Ethan Sanabria DO Medicines: Monitored Anesthesia Care Patient Profile: This is a 67 year old female. Refer to note in patient chart for documentation of history and physical. Patient has symptoms of acute vomiting. The symptoms first began one week ago. Complications: No immediate complications. Procedure: Pre-Anesthesia Assessment: - Prior to the procedure, a History and Physical was performed, and patient medications and allergies were reviewed. The patient is competent. The risks and benefits of the procedure and the sedation options and risks were discussed with the patient. All questions were answered and informed consent was obtained. Patient identification and proposed procedure were verified by the nurse in the pre-procedure area. Mental Status Examination: alert and oriented. Airway Examination: normal oropharyngeal airway and neck mobility. Respiratory Examination: clear to auscultation. CV Examination: normal. Prophylactic Antibiotics: The patient does not require prophylactic antibiotics. Prior Anticoagulants: The patient has taken no anticoagulant or antiplatelet agents. ASA Grade Assessment: II - A patient with mild systemic disease. After reviewing the risks and benefits, the patient was deemed in satisfactory condition to undergo the procedure. The anesthesia plan was to use monitored anesthesia care (MAC). Immediately prior to administration of medications, the patient was re-assessed for adequacy to receive sedatives. The heart rate, respiratory rate, oxygen saturations, blood pressure, adequacy of pulmonary ventilation, and response to care were monitored throughout the procedure. The physical status of the patient was re-assessed after the procedure. After obtaining informed consent, the endoscope was passed under direct vision. Throughout the procedure, the patient's blood pressure, pulse, and oxygen saturations were monitored continuously. The Endoscope was introduced through the mouth, and advanced to the second part of duodenum. The upper GI endoscopy was accomplished without difficulty. The patient tolerated the procedure well. Scope In: 11:42:07 AM Scope Out: 11:47:44 AM Total Procedure Duration Time 0 hours 5 minutes 37 seconds Findings: The examined esophagus was normal. A single 5 mm sessile polyp with no bleeding and no stigmata of recent bleeding was found on the lesser curvature of the stomach. The polyp was removed with a saline injection-lift technique using a hot snare. Resection and retrieval were complete. Verification of patient identification for the specimen was done. Estimated blood loss was minimal. Three localized erosions with stigmata of recent bleeding were found in the cardia. Coagulation for hemostasis using argon plasma at 0.3 liters/minute and 20 baeza was successful. Estimated blood loss was minimal. The examined duodenum was normal. Impression: - Normal esophagus. - A single gastric polyp. Resected and retrieved. - Gastric erosions with stigmata of recent bleeding. Treated with argon plasma coagulation (APC). - Normal examined duodenum. Recommendation: - [facility] care. - Resume previous diet. - Continue present medications. - Await pathology results. Procedure Code(s): --- Professional --- 14984, 59, Esophagogastroduodenoscopy, flexible, transoral; with control of bleeding, any method 62558, Esophagogastroduodenoscopy, flexible, transoral; with removal of tumor(s), polyp(s), or other lesion(s) by snare technique 88883, 59,51, Esophagogastroduodenoscopy, flexible, transoral; with directed submucosal injection(s), any substance CPT copyright 2021 [employer]. All rights reserved. The codes documented in this report are preliminary and upon hydro generation manager review may be revised to meet current compliance requirements. Ethan Sanabria DO 02/20/2023 12:26:01 PM This report has been signed electronically. Number of Addenda: 0 Note Initiated On: 02/20/2023 11:24 AM
--- NOTE | 2023-02-20 12:26 | OP.CCLET_ITS ---
02/20/2023 Griselda Robertson [address] [place] [address] Re : Upper GI endoscopy procedure for Brynn Woods Dear Dr. Robertson This procedure was performed on Monday, February 20, 2023. My impressions and recommendations are as follows: Impressions : - Normal esophagus. - A single gastric polyp. Resected and retrieved. - Gastric erosions with stigmata of recent bleeding. Treated with argon plasma coagulation (APC). - Normal examined duodenum. Recommendations : - [facility]. - Resume previous diet. - Continue present medications. - Await pathology results. My findings are described in the full procedure note, which is enclosed. If I can be of further assistance, please feel free to contact me at . Sincerely, Ethan Sanabria, 02/20/2023 12:26:01 PM This report has been signed electronically.
--- NOTE | 2023-02-20 16:20 | CASEMGMT ---
Social Work Pt is a resident at [facility]. SW met with pt who is able to confirm she [facility] at the [facility] and plans to return when discharged. Phone call to Lazara Nova from [facility]. Lazara confirms pt will be returning and that [facility] can provide transportation. Staff to call Lazara when discharge is in and she will set up transportation. WESTON Warner
[2023-02-20] MEDS: Baclofen 10 MG Tablet 20 MG PO (17:40)
[2023-02-20] MEDS: levETIRAcetam 500 MG Tablet PO (20:21)
[2023-02-20] MEDS: 0.9% Saline Lock 10 ML Syringe IV (20:21)
[2023-02-21 02:39] VITALS: BP 117/60; PULSE 90; RESP 16; TEMP 37; O2SAT 95
[2023-02-21] MEDS: Senna/Docusate Sodium 1 Tablet 2 TABLET PO (06:10)
[2023-02-21] MEDS: 0.9% Saline Lock 10 ML Syringe IV ×2 (06:10→09:22)
[2023-02-21] MEDS: Ondansetron 4 MG/2 ML Vial IV (06:10)
[2023-02-21 07:50] VITALS: BP 115/64; PULSE 87; RESP 16; TEMP 36.6; O2SAT 98
[2023-02-21 07:51] VITALS: O2SAT 97
[2023-02-21] MEDS: Baclofen 10 MG Tablet 20 MG PO ×3 (07:51→16:28)
[2023-02-21 07:52] LABS: Absolute Lymphocyte Count 1.74 X10^3/uL (0.83-4.51); Absolute Neutrophil Count 4.1 X10^3/uL (2.0-7.7); Basophil# 0.06 X10^3/uL; Basophil% 0.9 % (0-1); Eosinophil# 0.18 X10^3/uL; Eosinophils% 2.7 % (0-5); Hematocrit 31.6 % (37-47); Hemoglobin 10.3 g/dL (12.0-15.0); Lymphocyte # 1.74 X10^3/ul (0.83-4.51); Lymphocyte % 26.2 % (19-41); Mean Corp Hgb Conc 32.6 g/dL (32-36); Mean Corpuscular Hgb 28.7 pg (27.0-32.0); Mean Platelet Vol. 11.2 fl (6.2-12.0); Monocyte# 0.55 X10^3/uL; Monocyte% 8.3 % (0-10); NRBC Flagged by Analyzer 0 % (0-5); Neutrophil # 4.09 X10^3/uL (2.7-7.7); Neutrophil % 61.6 % (47-70); Platelet Count 235 K/mm3 (150-450); RBC Distribution Width CV 13.1 % (11.6-14.6); RBC Distribution Width SD 42.3 fl (35.1-43.9); Red Blood Count 3.59 M/mm3 (4.2-5.4); White Blood Count 6.6 K/mm3 (4.4-11.0)
--- NOTE | 2023-02-21 08:06 | PN.HOSP_ITS ---
Reason for Visit Reason for Visit: Diagnoses Gastrointestinal hemorrhage, unspecified (02/19/23) Bacteriuria (02/19/23) Subjective Subjective Urine cultures positive for E. coli sensitivities reviewed. Patient EGD demonstrated normal esophagus a single gastric polyp which was resected and retrieved and gastric erosions with stigmata of recent bleeding treated with argon plasma coagulation. Patient was noted to have normal examined duodenum Objective Data Objective Data Vital Signs: Vital Signs Temp Pulse Resp BP Pulse Ox O2 Del Method 97.8 F 87 16 115/64 97 Room Air 02/21/23 07:50 02/21/23 07:50 02/21/23 07:50 02/21/23 07:50 02/21/23 07:51 02/21/23 07:51 Oxygen Delivery Method Room Air Weight: 88.3 kg Body Mass Index (BMI) 33.4 Intake & Output: Intake and Output for Last 24 Hours 02/19/23 02/20/23 02/21/23 23:59 23:59 23:59 Intake Total 1701.25 / 2501.25 3344.50 / 3344.50 Output Total 250 / 650 1800 / 1800 500 / 500 Balance 1451.25 / 1851.25 1544.50 / 1544.50 -500 / -500 Lab / Micro Data 02/21/23 07:17 02/21/23 07:17 Labs: Laboratory Results - last 24 hr 02/21/23 07:17: WBC 6.6, RBC 3.59 L, Hgb 10.3 L, Hct 31.6 L, MCV 88.0, MCH 28.7, MCHC 32.6, RDW Std Deviation 42.3, RDW Coeff of Chel 13.1, Plt Count 235, MPV 11.2, Immature Gran % (Auto) 0.300, Neut % (Auto) 61.6, Lymph % (Auto) 26.2, [place] % (Auto) 8.3, Eos % (Auto) 2.7, Baso % (Auto) 0.9, Absolute Neuts (auto) 4.1, Absolute Lymphs (auto) 1.74, Nucleated RBC % 0 Micro: Microbiology 02/19/23 08:58 Urine, Catheterized Urine Culture - Preliminary GNR lactose physical science professor 02/19/23 08:30 Mucosa - Nose SARS-CoV-2, Influenza & RSV (PCR) - Final 02/19/23 08:50 Stool Stool Occult Blood (WAQAS) - Final Physical Exam Narrative GENERAL: Patient is cooperative HEENT: Atraumatic; normocephalic EYES; Anicteric, Normal Conjunctiva NECK; supple, normal thyroid, RESPIRATORY: Diminished to auscultation CARDIOVASCULAR: Regular S1 S2, GI: soft, normoactive bowel sounds, : No Renal angle tenderness; EXTREMITIES: No edema, no clubbing, MUSCULOSKELETAL: no muscle wasting NEURO: Awake; no lateralizing signs. SKIN: No Rash PSYCH; Flat affect Assessment & Plan Assessment/Plan (1) Upper GI bleed: (2) Bacteriuria: PLAN: Plan Patient is a 67-year-old lady with history of cerebral palsy resident at the shelter brought in with nausea and vomiting with coffee-ground emesis 1. Upper GI bleed ? Patient has been admitted to regular nursing floor. Started on Protonix drip ordered H&H every 6 consult placed to GI Dr. Friend was notified from the ED. Patient will be kept n.p.o. pending evaluation by GI ? 02/20/2023;Hemoglobin on admission was 11.2 down to 10.0. Consult placed to GI 02/21/2023;Patient EGD demonstrated normal esophagus a single gastric polyp which was resected and retrieved and gastric erosions with stigmata of recent bleeding treated with argon plasma coagulation. Patient was noted to have normal examined duodenum 2. Acute cystitis with E. coli ? Patient started on ceftriaxone urine culture sent ? 02/21/2023 urine cultures positive for E. coli sensitivities reviewed patient will be discharged on cefdinir based on sensitivities. 3. Large hiatal hernia ? CAT scan findings, patient is on PPI did continue 4. Cholelithiasis ? Right upper quadrant ultrasound ordered for confirmation 5. Seizure disorder ? Patient is on Keppra did continue 6. Cerebral palsy ? Patient is quite functional and is currently a resident of a shelter 7. Hypertension - Blood pressure controlled, home medications continued with dose adjustment as needed 8. DVT prophylaxis ? Bilateral SCDs for now avoid chemoprophylaxis given patient presentation Time spent in the patient's overall evaluation,decision-making process, review of diagnostic data, adjustment of management, discussion with other providers, nursing nursing and ancillary staff involved in patient's care documentation, 35 Minutes Charges/Coding Visit Charges Inpatient E&M: 08930 Subs Hosp L2
[2023-02-21] MEDS: Sertraline 50 MG Tablet PO (09:12)
[2023-02-21] MEDS: Cholecalciferol (VIT D3) 25 MCG TABLET (1,000 UNITS) 50 MCG PO (09:12)
[2023-02-21] MEDS: levETIRAcetam 500 MG Tablet PO (09:13)
[2023-02-21] MEDS: Calcium Carb/Vitamin D 1 TABLET Tablet PO (09:13)
[2023-02-21] MEDS: Menthol/Lanolin/Calamine/Znox 113 GM Tube 1 APPLIC TOPICAL (09:13)
[2023-02-21] MEDS: Tolterodine Tartrate 2 MG CAP.SA PO (09:13)
[2023-02-21 09:29] LABS: Anion Gap 4 (5-15); BUN 14 mg/dL (7-18); BUN/Creat Ratio 21.5 RATIO (10-20); Calcium,Total 8.9 mg/dL (8.5-10.1); Chloride 105 mmol/L (98-107); Creatinine, Serum 0.65 mg/dL (0.55-1.02); EST Glomerular Filtration Rate 96 mL/min (>60); Est Glom Filt Rate - Afr Amer 116 mL/min (>60); Estimated Creatinine Clearance 71.39 ml/min; Glucose 99 mg/dL (74-106); Potassium 4.2 mmol/L (3.5-5.1); Sodium Level 139 mmol/L (136-145)
--- NOTE | 2023-02-21 09:53 | PCM.DC.SUM ---
Providers Date of Admission: 02/19/23 Date of Discharge: 02/21/23 Primary Care Physician: Dr. Griselda Robertson MD Consultations 02/19/23 12:25 Consult: Gastroenterology Routine Consulting Provider: Ethan Sanabria Reason for Consult: GI bleed EMERGENT Consult: Yes Notified: Yes Date Notified: 02/19/23 Time Notified: 12:25 Method of Notification: ED Physician Initiated Reason For Visit: UPPER GI BLEED, ACUTE CYSTITIS Diagnosis Discharge Diagnosis (1) Upper GI bleed: Status: Acute Code(s): K92.2 - Gastrointestinal hemorrhage, unspecified (2) Bacteriuria: Status: Acute Code(s): R82.71 - Bacteriuria Plan Patient is a 67-year-old lady with history of cerebral palsy resident at the nursing home brought in with nausea and vomiting with coffee-ground emesis 1. Upper GI bleed ? Patient has been admitted to regular nursing floor. Started on Protonix drip ordered H&H every 6 consult placed to GI Dr. Sanabria was notified from the ED. Patient will be kept n.p.o. pending evaluation by GI ? 02/20/2023;Hemoglobin on admission was 11.2 down to 10.0. Consult placed to GI 02/21/2023;Patient EGD demonstrated normal esophagus a single gastric polyp which was resected and retrieved and gastric erosions with stigmata of recent bleeding treated with argon plasma coagulation. Patient was noted to have normal examined duodenum 2. Acute cystitis with E. coli ? Patient started on ceftriaxone urine culture sent ? 02/21/2023 urine cultures positive for E. coli sensitivities reviewed patient will be discharged on cefdinir based on sensitivities. 3. Large hiatal hernia ? CAT scan findings, patient is on PPI did continue 4. Cholelithiasis ? Right upper quadrant ultrasound ordered for confirmation 5. Seizure disorder ? Patient is on Keppra did continue 6. Cerebral palsy ? Patient is quite functional and is currently a resident of a nursing home 7. Hypertension - Blood pressure controlled, home medications continued with dose adjustment as needed 8. DVT prophylaxis ? Bilateral SCDs for now avoid chemoprophylaxis given patient presentation Time spent in the patient's overall evaluation,decision-making process, review of diagnostic data, adjustment of management, discussion with other providers, nursing nursing and ancillary staff involved in patient's care documentation, 35 Minutes Medications at Discharge Home Medications alendronate 70 mg-cholecalciferol (vitamin D3) 2,800 unit tablet (Fosamax Plus D) 1 ea PO Q7D 12/17/14 baclofen 10 mg tablet 20 mg PO TID 12/17/14 carbamide peroxide 6.5 % ear drops (Ear Drops (carbamide peroxide)) 15 ml OT QWEEK earwax softener 12/17/14 cholecalciferol (vitamin D3) 25 mcg (1,000 unit) tablet (Vitamin D3) 2,000 unit PO DAILY 12/17/14 calcium carbonate 250 mg-vitamin D3 3.125 mcg (125 unit) tablet (Oyster Shell Calcium-Vitamin D3) 1 ea PO DAILY 10/13/16 levetiracetam 500 mg tablet 500 mg PO BID 09/28/19 triamterene 37.5 mg-hydrochlorothiazide 25 mg tablet 1 tab PO DAILY PRN CLEMENTINE EDEMA 04/12/20 sertraline 25 mg tablet 50 mg PO DAILY 01/22/21 Dupixent Pen See Rx Instructions .Route .COMPLEX 01/04/22 ondansetron 4 mg disintegrating tablet 4 mg PO Q6H PRN nausea and vomiting #7 tabs 01/04/22 tolterodine 2 mg capsule,extended release 24 hr 2 mg PO DAILY 01/04/22 ondansetron 4 mg disintegrating tablet 4 mg PO Q6H PRN nausea and vomiting 02/19/23 pantoprazole 40 mg tablet,delayed release 40 mg PO DAILY 02/19/23 cefdinir 300 mg capsule 300 mg PO Q12 7 days #14 caps 02/21/23 Physical Exam Narrative GENERAL: Patient is cooperative HEENT: Atraumatic; normocephalic EYES; Anicteric, Normal Conjunctiva NECK; supple, normal thyroid, RESPIRATORY: Diminished to auscultation CARDIOVASCULAR: Regular S1 S2, GI: soft, normoactive bowel sounds, : No Renal angle tenderness; EXTREMITIES: No edema, no clubbing, MUSCULOSKELETAL: no muscle wasting NEURO: Awake; no lateralizing signs. SKIN: No Rash PSYCH; Flat affect Weight / BMI Weight Weight: 88.3 kg Body Mass Index (BMI) 33.4 ABG / Lab / Microbiology Data 02/21/23 07:17 02/21/23 07:17 Laboratory: Laboratory Results - last 24 hr 02/21/23 07:17: WBC 6.6, RBC 3.59 L, Hgb 10.3 L, Hct 31.6 L, MCV 88.0, MCH 28.7, MCHC 32.6, RDW Std Deviation 42.3, RDW Coeff of Chel 13.1, Plt Count 235, MPV 11.2, Immature Gran % (Auto) 0.300, Neut % (Auto) 61.6, Lymph % (Auto) 26.2, [place] % (Auto) 8.3, Eos % (Auto) 2.7, Baso % (Auto) 0.9, Absolute Neuts (auto) 4.1, Absolute Lymphs (auto) 1.74, Nucleated RBC % 0, Sodium 139, Potassium 4.2, Chloride 105, Carbon Dioxide 30.0, Anion Gap 4 L, BUN 14, Creatinine 0.65, Estim Creat Clear Calc 71.39, Est GFR (MDRD) Af Amer 116, Est GFR (MDRD) Non-Af 96, BUN/Creatinine Ratio 21.5 H, Glucose 99, Calcium 8.9 Microbiology: Microbiology 02/19/23 08:58 Urine, Catheterized Urine Culture - Final Escherichia coli 02/19/23 08:30 Mucosa - Nose SARS-CoV-2, Influenza & RSV (PCR) - Final 02/19/23 08:50 Stool Stool Occult Blood (WAQAS) - Final D/C Instructions Discharge Diet: No restrictions Discharge Activity: Return to Normal Activity Call your doctor if you observe: Fever of 101 or Higher, Shortness of breath, Fainting spells and Chest pain Meaningful Use Info Meaningful Use Diagnoses (Choose all that apply): None applicable Discharge Plan Admission Admit Date/Time: 02/19/23 11:38 Attending Provider: Jett Kitchen Primary Care Provider: Griselda Robertson Consulting Providers: Ethan Sanabria Discharge Orders/Prescriptions Prescriptions: New cefdinir 300 mg Capsule 300 mg PO Q12 7 Days Qty: 14 0RF Continued baclofen 10 MG tablet 20 mg PO TID Ear Drops (carbamide peroxide) 15 ML drops 15 ml OT QWEEK Patient Comments: 2 DROPS EACH EAR ON THURSDAY AND THURSDAY Fosamax Plus D 1 EACH tablet 1 ea PO Q7D Patient Comments: ON MONDAYS cholecalciferol (vitamin D3) [Vitamin D3] 1,000 UNIT tablet 2,000 unit PO DAILY calcium carbonate-vitamin D3 [Oyster Shell Calcium-Vit D3] 1 EACH tablet 1 ea PO DAILY levetiracetam 500 MG tablet 500 mg PO BID triamterene-hydrochlorothiazid 1 EACH tablet 1 tab PO DAILY PRN (Reason: CLEMENTINE EDEMA) sertraline 25 mg Tablet 50 mg PO DAILY tolterodine 2 mg Capsule,Extended Release 24hr 2 mg PO DAILY Dupixent Pen See Rx Instructions .ROUTE .COMPLEX Rx Instructions: unsure of dose ondansetron 4 mg tablet,disintegrating 4 mg PO Q6H PRN (Reason: nausea and vomiting) Qty: 7 0RF pantoprazole 40 mg tablet,delayed release (DR/EC) 40 mg PO DAILY ondansetron 4 mg tablet,disintegrating 4 mg PO Q6H PRN (Reason: nausea and vomiting) Referrals / Follow Up: Griselda Robertson MD [Primary Care Provider] - Disposition Disposition (needs filled in before D/C Order can be placed): NonSkilled NH/Intermed Care Charges/Coding Visit Charges Inpatient E&M: 63394 Disch Hosp >30min
[2023-02-21] MEDS: Pantoprazole Sodium 40 MG Tablet PO (10:12)
[2023-02-21] MEDS: Cefdinir 300 MG Capsule PO (10:12)
[2023-02-21 14:00] VITALS: BP 113/68; PULSE 87; RESP 18; TEMP 36.8; O2SAT 100
--- NOTE | 2023-02-21 14:26 | NURSING ---
message left for caregiver gennaro as no response from [facility]- voice message left requesting return call
--- NOTE | 2023-02-21 14:48 | NURSING ---
at 1300 called and left VM with Brother Saurav and with [facility] concerning pt being d/c today.
--- NOTE | 2023-02-21 15:00 | NURSING ---
rosmery left for kate rocha requesting return call regarding discharge
--- NOTE | 2023-02-21 16:16 | NURSING ---
attempted to reach brother can regarding discharge are caregivers have not returned call.
== END 2023-02-21 17:43 | disposition intermediate care facility (04) | DRG 378 ==
LOC: ED 11:44 → MS3 13:03
PROVIDERS: Internal Medicine Gastroenterology; Admitting Provider Internal Medicine; Emergency Provider Emergency Medicine; PCP Internal Medicine; Visit Provider Internal Medicine
PROC: 0DJ08ZZ Inspection of Upper Intestinal Tract, Via Natural or Artificial Opening Endoscopic (ICD-10-PCS; CPT 43235; principal; 2023-02-20 11:25)
DX: K25.4 Chronic or unspecified gastric ulcer with hemorrhage (principal); N30.00 Acute cystitis without hematuria; G40.909 Epilepsy, unspecified, not intractable, without status epilepticus; G80.9 Cerebral palsy, unspecified; I10 Essential (primary) hypertension; K44.9 Diaphragmatic hernia without obstruction or gangrene; K21.9 Gastro-esophageal reflux disease without esophagitis; K80.20 Calculus of gallbladder without cholecystitis without obstruction; K22.81 Esophageal polyp; K31.7 Polyp of stomach and duodenum; B96.20 Unspecified Escherichia coli [E. coli] as the cause of diseases classified elsewhere; R82.71 Bacteriuria; Z66 Do not resuscitate
CPT/HCPCS: 36415; 74176; 80048; 80076; 81001; 82274; 83690; 83735; 84100; 85014; 85018; 85025; 87077; 87086; 87088; 87186; 87631; 88305; 88342; 99285; J7030; J7120; A4216; J2405; J7799

== ENCOUNTER 2023-05-09 08:35 | Emergency (ER) | payer MEDICARE, MEDICAID, SELFPAY ==
[2023-05-09] VITALS (8 sets, daily range): BP systolic 92–155; BP diastolic 69–92; PULSE 75–87; RESP 16–24; TEMP 36.3–36.8; O2SAT 91–96; BMI 36.5
--- NOTE | 2023-05-09 08:43 | EKG12_ITS ---
Test Reason : SOB Blood Pressure : / mmHG Vent. Rate : 080 BPM Atrial Rate : 080 BPM P-R Int : 182 ms QRS Dur : 076 ms QT Int : 386 ms P-R-T Axes : -11 051 033 degrees QTc Int : 445 ms Normal sinus rhythm Normal ECG Confirmed by Zachery Chaudhari ([id number]), city editor STEPHANIE HADLEY ([id number]) on 05/11/2023 11:08:16 AM Referred By: Confirmed By:Zachery Chaudhari
--- NOTE | 2023-05-09 08:46 | EX.ED.VIS.UR ---
HPI HPI - URI History of Present Illness Chief Complaint: Shortness of Breath Informant: patient and EMS Narrative Narrative: 68-year-old female with cerebral palsy living in [facility] sent for URI symptoms that the patient states have been there for a while and hypoxia in the 80s at the [facility]. EMS states she was 85% on room air for them, not on home oxygen, they put her on 2 L nasal cannula without treatment here she is 91-96% on room air. She states her cough is nonproductive. She denies any chest heaviness, states she feels a little short of breath. She denies a history of asthma. [facility] ED Constitutional Constitutional ED: Denies chills or fever(s) ENT ENT ED: Reports nasal congestion and rhinorrhea; Denies ear pain or sore throat Cardiovascular Cardiovascular: Denies chest pain or palpitations Respiratory/Chest Respiratory/Chest: Reports cough and dyspnea; Denies sputum Gastrointestinal Gastrointestinal: Denies abdominal pain, diarrhea, nausea or vomiting Genitourinary Genitourinary ED: Denies dysuria or hematuria Musculoskeletal Musculoskeletal: Denies neck pain Integumentary Denies abscess or rash Neurologic Neurologic: Reports headache(s); Denies paresthesias or weakness PFSH [facility] Medical History Cerebral palsy Cervical spondylosis Contact with or exposure to other viral diseases Dystonia Epilepsy Hiatal hernia Hirsutism Idiopathic mild intellectual disability Leukopenia Seizure Seizures Thrombocytopenia Home Medications carbamide peroxide 6.5 % ear drops (Ear Drops (carbamide peroxide)) 15 ml OT .COMPLEX earwax softener 12/17/14 [History Last Taken 05/09/23] calcium carbonate 250 mg-vitamin D3 3.125 mcg (125 unit) tablet (Oyster Shell Calcium-Vitamin D3) 1 ea PO DAILY 10/13/16 [History Last Taken 05/09/23] levetiracetam 500 mg tablet 500 mg PO BID 09/28/19 [History Last Taken 05/09/23] triamterene 37.5 mg-hydrochlorothiazide 25 mg tablet 1 tab PO DAILY PRN CLEMENTINE EDEMA 04/12/20 [History Last Taken 05/09/23] tolterodine 2 mg capsule,extended release 24 hr 2 mg PO DAILY 01/04/22 [History Last Taken 05/09/23] ondansetron 4 mg disintegrating tablet 4 mg PO Q6H PRN nausea and vomiting 02/19/23 [History Last Taken 05/09/23] pantoprazole 40 mg tablet,delayed release 40 mg PO DAILY 02/19/23 [History Last Taken 05/09/23] albuterol sulfate 90 mcg/actuation aerosol inhaler (Ventolin HFA) 1 - 2 puff inhalation Q4H PRN PRN Wheezing ##1 05/09/23 [Rx Last Taken Unknown] alendronate 70 mg tablet 70 mg PO MO 05/09/23 [History Last Taken 05/04/23] baclofen 20 mg tablet 20 mg PO TID 05/09/23 [History Last Taken 05/09/23] ceramides 1,3,6-II (CeraVe Daily Moisturizing lotion) 1 applic topical DAILY 05/09/23 [History Last Taken 05/09/23] cholecalciferol (vitamin D3) 50 mcg (2,000 unit) tablet 50 mcg PO DAILY 05/09/23 [History Last Taken 05/09/23] levofloxacin 750 mg tablet 750 mg PO DAILY #4 tabs 05/09/23 [Rx Last Taken Unknown] prednisone 20 mg tablet 40 mg (2 x 20 mg) PO DAILY #8 TABLETS 05/09/23 [Rx Last Taken Unknown] sertraline 50 mg tablet 50 mg PO DAILY 05/09/23 [History Last Taken 05/09/23] tralokinumab-ldrm 150 mg/mL subcutaneous syringe (Adbry) 300 mg subcut Q14D 05/09/23 [History Last Taken 04/30/23] white petrolatum (Petroleum Jelly topical) 1 applic topical DAILY PRN dry skin 05/09/23 [History Last Taken 05/09/23] Allergy/AdvReac Type Severity Reaction Status Date / Time doxycycline Allergy Hives Verified 04/22/23 13:23 Social History Smoking Status: Never smoker EXAM Physical Exam Const Vital Signs: 05/09/23 08:38 05/09/23 08:42 05/09/23 08:55 Temperature 97.3 F L Temperature Source Temporal Pulse Rate 87 Respiratory Rate 20 H Respiratory Effort Normal Non-Labored Short of Breath Respiratory Depth Normal Respiratory Pattern Normal Blood Pressure 155/69 H Blood Pressure Mean 97 Pulse Ox 92 91 Oxygen Delivery Method Room Air Room Air Room Air Oxygen Flow Rate (L/min) 05/09/23 08:59 05/09/23 08:59 05/09/23 09:45 Temperature Temperature Source Pulse Rate 81 86 Respiratory Rate 21 H 16 Respiratory Effort Respiratory Depth Respiratory Pattern Tachypnea Blood Pressure 144/85 H Blood Pressure Mean 104 Pulse Ox 95 96 Oxygen Delivery Method Nasal Cannula Room Air Oxygen Flow Rate (L/min) 3 05/09/23 12:00 05/09/23 14:00 Temperature Temperature Source Pulse Rate 79 75 Respiratory Rate 18 24 H Respiratory Effort Respiratory Depth Respiratory Pattern Blood Pressure 92/74 152/85 H Blood Pressure Mean 80 107 Pulse Ox 93 91 Oxygen Delivery Method Room Air Nasal Cannula Oxygen Flow Rate (L/min) 2 Positive well nourished and well developed General Appearance ED: well developed and NAD HEENT Reports moist mucous membranes HEENT Narrative: TMs normal bilaterally normocephalic and atraumatic Throat: Negative for posterior oropharynx abnormal Eyes PERRL and EOMs intact bilaterally Neck no lymphadenopathy, supple and no meningeal signs Resp normal respiratory effort Resp Narrative: Mild end-expiratory wheezes throughout all lung keller otherwise clear Cardio no murmurs Rate: regular rate Rhythm: regular rhythm GI non-tender, non-distended and no masses Auscultation: normoactive bowel sounds Palpation: soft Extremity normal to inspection and full ROM Extremity Narrative: 1+ bilateral lower extremity pedal edema to the knees symmetrically Neuro CN's II-XII intact bilaterally and no sensory deficits noted Sensorium / Orientation: alert, oriented to person and oriented to place Motor Exam: strength 5/5 throughout Skin Lesions: no lesions Rashes: no rashes MDM MDM MDM Narrative Medical decision making narrative: Patient was given a breathing treatment and subsequently, she was resting at 87% on room air, 3 L nasal cannula brought her up to 92%. Breathing improved somewhat. Has somewhat of a bronchitic cough. She is not bringing anything up. Her labs are noted, chest x-ray 2 views my interpretation shows what appears to be early bilateral lower lobe infiltrates. Radiology interpreted the films as venous congestion, which also is in the differential so I added a BNP and a troponin, I reviewed those they are essentially within normal limits although the BNP is just slightly elevated, it is within normal limits for her age. COVID/influenza/RSV negative. Therefore, will start her on antibiotics to cover atypicals. With regards to her oxygen requirement, her pulse ox is giving us a reliable waveform, however sure hypoxia is intermittent. We put her on oxygen, we then would find her 30 minutes later with the oxygen down around her neck having had pulled it down herself, and sitting there without hypoxemia anywhere between 92 and 97% on room air. She is breathing well. All of this is partly responsible for her extended observation in emergency department. I discussed with the hospitalist he advised getting an ABG which we did. This shows a pO2 of 63 correlating with oxygen saturations of approximately 92%. The rest of her ABG is normal. Given this, hospitalist agrees that [facility] to [facility] would be reasonable to treat as an outpatient. I am prescribing Levaquin to cover atypical pneumonia, as well as a 5-day burst of prednisone with the first dose being given here, and an albuterol inhaler for recurrent shortness of breath/wheezing, they do not have a nebulizer machine for her at the home. Discussed with staff they are comfortable with that plan as well. We discussed reasons to return. Lab Data Attestation: I reviewed the patient's lab results. Labs: Laboratory Results - last 24 hr 05/09/23 08:50 WBC 4.2 L RBC 3.59 L Hgb 9.3 L Hct 29.9 L MCV 83.3 MCH 25.9 L MCHC 31.1 L RDW Std Deviation 42.9 RDW Coeff of Chel 14.0 Plt Count 281 MPV 9.9 Immature Gran % (Auto) 0.200 Neut % (Auto) 50.7 Lymph % (Auto) 28.2 [place] % (Auto) 16.1 H Eos % (Auto) 4.1 Baso % (Auto) 0.7 Absolute Neuts (auto) 2.1 Absolute Lymphs (auto) 1.17 Nucleated RBC % 0 Sodium 138 Potassium 4.0 Chloride 105 Carbon Dioxide 28.0 Anion Gap 5 BUN 10 Creatinine 0.64 Estim Creat Clear Calc 71.11 Est GFR (MDRD) Af Amer 118 Est GFR (MDRD) Non-Af 97 BUN/Creatinine Ratio 15.6 Glucose 100 Calcium 8.5 Troponin I High Sens 6 B-Natriuretic Peptide 138.2 H ABG Data ABG results: ABG 05/09/23 13:08 Specimen Type ART Sample Site R Radial pH 7.42 Bicarbonate Actual 28.3 H Total CO2 30 Base Excess 4 H O2 Saturation 92 L ABG pCO2 43.9 ABG pO2 63 L Cuauhtemoc Test Positive O2 Delivery Device Room Air Vent Mode Not entered Radiography Diagnostic Testing: Clinical Impression(s) from Imaging Studies Chest X-Ray 05/09/23 09:25 IMPRESSION: Mild pulmonary vascular congestion. Electronically Signed: Jakcy Durant MD at 10:10 EDT , Rhythm Strip Rhythm Strip: Sinus Rhythm Rate: 80 Ectopy: None EKG Initial EKG: Attestation: I personally reviewed and interpreted this EKG as follows: Interpretation: Sinus Rhythm and No Acute Injury Pattern Management Discussion w/another healthcare provider: Hospitalist (Dr. Ramirez) Discharge Plan Triage Chief Complaint: Shortness of Breath ED Provider: Malachi Grubbs Dx/Rx/DC Orders Clinical Impression: Atypical pneumonia Instructions: ED Pneumonia (Adult) Prescriptions: New levofloxacin 750 mg tablet 750 mg PO DAILY Qty: 4 0RF prednisone 20 mg tablet 40 mg PO DAILY Qty: 8 0RF albuterol sulfate [Ventolin HFA] 90 mcg/actuation HFA aerosol inhaler 1 - 2 puff inhalation Q4H PRN PRN (Reason: Wheezing) Qty: 1 0RF Rx Instructions: w/ spacer No Action Ear Drops (carbamide peroxide) 15 ML drops 15 ml OT .COMPLEX Patient Comments: 2 DROPS EACH EAR ON THURSDAY AND THURSDAY Rx Instructions: 15 mL OT 2 DROPS INTO EACH EAR ON THURSDAY AND THURSDAY; calcium carbonate-vitamin D3 [Oyster Shell Calcium-Vit D3] 1 EACH tablet 1 ea PO DAILY levetiracetam 500 MG tablet 500 mg PO BID triamterene-hydrochlorothiazid 1 EACH tablet 1 tab PO DAILY PRN (Reason: CLEMENTINE EDEMA) tolterodine 2 mg Capsule,Extended Release 24hr 2 mg PO DAILY pantoprazole 40 mg tablet,delayed release (DR/EC) 40 mg PO DAILY ondansetron 4 mg tablet,disintegrating 4 mg PO Q6H PRN (Reason: nausea and vomiting) alendronate 70 mg tablet 70 mg PO MO baclofen 20 mg tablet 20 mg PO TID cholecalciferol (vitamin D3) 50 mcg (2,000 unit) tablet 50 mcg PO DAILY CeraVe Daily Moisturizing Lotion 1 applic topical DAILY sertraline 50 mg tablet 50 mg PO DAILY white petrolatum [Petroleum Jelly] Gel 1 applic topical DAILY PRN (Reason: dry skin) Adbry 150 mg/mL syringe 300 mg subcut Q14D Primary Care Provider: Griselda Robertson Referrals: Griselda Robertson MD [Primary Care Provider] - 3-5 Days if not improving Activity Restrictions/Additional Instructions: Already received first doses of prednisone and levofloxacin in the emergency department, so those 2 medications can be started tomorrow 05/10. The inhaler can be used as needed for wheezing or shortness of breath. The antibiotic she is being placed on is a total of a 5-day course (first day given in ER, prescription for 4 pills) that stays in the body working for a total of 10 days, sort of like a Z-Lawson. Her pulse ox readings were intermittently low but not for very long. For the most part she did not require oxygen to stay in the 90s. We left her off of oxygen for a while and did an ABG, and her oxygenation was good (pO2 63), not requiring supplementation or admission. She is not septic. Chest x-ray showed, according to the radiologist, mild venous congestion which suggests fluid, but not necessarily the source. We evaluated for this with some heart testing that essentially turned out unremarkable, and with her cough that sounds more like bronchitis, it is presumed that this fluid is infectious, which is pneumonia, atypical in her particular case given its pattern. We are treating with antibiotics for bacterial causes, but viral causes can cause this as well; her COVID/influenza/RSV swab was negative for those particular viruses but others can be possible and we cannot test for them all. With regards to her oxygen levels, for the several hours she was observed in the ER, she is in no danger and safe to undergo outpatient treatment. If things change, you may always return to the ER for reevaluation. Disposition Disposition: Home, Self Care
[2023-05-09 08:59] LABS: Absolute Lymphocyte Count 1.17 X10^3/uL (0.83-4.51); Absolute Neutrophil Count 2.1 X10^3/uL (2.0-7.7); Basophil# 0.03 X10^3/uL; Basophil% 0.7 % (0-1); Eosinophil# 0.17 X10^3/uL; Eosinophils% 4.1 % (0-5); Hematocrit 29.9 % (37-47); Hemoglobin 9.3 g/dL (12.0-15.0); Lymphocyte # 1.17 X10^3/ul (0.83-4.51); Lymphocyte % 28.2 % (19-41); Mean Corp Hgb Conc 31.1 g/dL (32-36); Mean Corpuscular Hgb 25.9 pg (27.0-32.0); Mean Corpuscular Volume 83.3 fL (81-99); Mean Platelet Vol. 9.9 fl (6.2-12.0); Monocyte# 0.67 X10^3/uL; Monocyte% 16.1 % (0-10); NRBC Flagged by Analyzer 0 % (0-5); Neutrophil % 50.7 % (47-70); Platelet Count 281 K/mm3 (150-450); RBC Distribution Width SD 42.9 fl (35.1-43.9); Red Blood Count 3.59 M/mm3 (4.2-5.4); White Blood Count 4.2 K/mm3 (4.4-11.0)
[2023-05-09] MEDS: Ipratropium/Albuterol Sulfate 3 ML AMPUL.NEB INHALATION (08:59)
[2023-05-09 09:12] LABS: Anion Gap 5 (5-15); BUN 10 mg/dL (7-18); BUN/Creat Ratio 15.6 RATIO (10-20); Calcium,Total 8.5 mg/dL (8.5-10.1); Chloride 105 mmol/L (98-107); Creatinine, Serum 0.64 mg/dL (0.55-1.02); EST Glomerular Filtration Rate 97 mL/min (>60); Est Glom Filt Rate - Afr Amer 118 mL/min (>60); Estimated Creatinine Clearance 71.11 ml/min; Glucose 100 mg/dL (74-106); Sodium Level 138 mmol/L (136-145)
--- NOTE | 2023-05-09 09:25 | RAD_ITS ---
STUDY: X-RAY CHEST REASON FOR EXAM: Female, 68 years old. Shortness of breath TECHNIQUE: Frontal and lateral views of the chest COMPARISON: 01/11/2023 FINDINGS: There are mild congestive changes noted. The lungs are otherwise clear. There are no pleural effusions. There is no pneumothorax. The heart is stable in size. The visualized osseous structures are within normal limits. RAD/Chest PA and Lateral IMPRESSION: Mild pulmonary vascular congestion. Electronically Signed: Jacky Durant MD at 10:10 EDT ,
[2023-05-09 11:48] LABS: Troponin-I HS 6 pg/mL (3.0-54.0)
[2023-05-09 11:58] LABS: BNP,B-Type NATRIURETIC PEPTIDE 138.2 pg/mL (0-100)
[2023-05-09] MEDS: levoFLOXacin IV 750 MG/150 ML BAG 100 MG IV (12:36)
[2023-05-09 13:12] LABS: Allen Test Positive; Base Excess 4 mmol/L (-2 to +2); Bicarbonate 28.3 mmol/L (22-26); Blood Gas Specimen Type ART; Mode Not entered; O2 Delivery Device Room Air; PO2 63 mmHG (75-100); SITE R Radial; SO2 92 % (95-99); Total Carbon Dioxide 30 mmol/L; pCO2 43.9 mmHg (35-45); pH 7.42 (7.35-7.45)
[2023-05-09] MEDS: predniSONE 20 MG Tablet 40 MG PO (14:39)
== END 2023-05-09 15:41 | disposition home or self-care (01) ==
PROVIDERS: Emergency Provider Emergency Medicine; PCP Internal Medicine; Visit Provider Emergency Medicine
DX: J18.9 Pneumonia, unspecified organism (principal); G80.9 Cerebral palsy, unspecified; G40.909 Epilepsy, unspecified, not intractable, without status epilepticus; R06.02 Shortness of breath; Z79.899 Other long term (current) drug therapy
CPT/HCPCS: 36600; 71046; 80048; 82803; 83880; 84484; 85025; 87631; 93005; 94640; 96365; 96366; 99283; J7050

== ENCOUNTER → 2023-11-12 | Outpatient (CLI) | payer MEDICARE, MEDICAID, SELFPAY ==
--- NOTE | 2023-11-12 17:15 | RAD_ITS ---
STUDY: X-RAY CHEST REASON FOR EXAM: Female, 68 years old. CHRONIC COUGH TECHNIQUE: PA and lateral COMPARISON: None. FINDINGS: The lungs are clear and expanded. There is no demonstrated pleural abnormality. Heart is enlarged.. Normal mediastinum and ash. Normal visualized pulmonary arteries. Normal visualized aortic arch and descending thoracic aorta. Normal visualized thoracic spine. Normal visualized ribs, clavicles, and shoulders. Retrocardiac structure noted consistent with moderate size hiatal hernia.. There is no demonstrated abnormality of the visualized soft tissue structures of the upper abdomen. RAD/Chest PA and Lateral IMPRESSION: Moderate size hiatal hernia. No acute cardiopulmonary pathology Electronically Signed: Kameron Lainez MD at 18:43 EDT ,
== END | disposition home or self-care (01) ==
PROVIDERS: PCP Internal Medicine; Referring Provider Physician Assistant Surgical; Visit Provider Physician Assistant Surgical
DX: J20.9 Acute bronchitis, unspecified (principal); J42 Unspecified chronic bronchitis
CPT/HCPCS: 71046

== ENCOUNTER 2024-01-01 13:01 | Inpatient (IN) | payer MEDICARE, MEDICAID, SELFPAY ==
[2024-01-01] VITALS (17 sets, daily range): BP systolic 113–221; BP diastolic 59–176; PULSE 86–98; RESP 15–24; TEMP 36.6–37.1; O2SAT 94–99; BMI 33.6
[2024-01-01 13:37] LABS: Absolute Lymphocyte Count 2.18 X10^3/uL (0.83-4.51); Absolute Neutrophil Count 4.8 X10^3/uL (2.0-7.7); Basophil# 0.08 X10^3/uL; Eosinophil# 0.33 X10^3/uL; Eosinophils% 4.1 % (0-5); Hematocrit 22.9 % (37-47); Lymphocyte # 2.18 X10^3/ul (0.83-4.51); Lymphocyte % 26.8 % (19-41); Mean Corp Hgb Conc 26.2 g/dL (32-36); Mean Corpuscular Hgb 15.6 pg (27.0-32.0); Mean Corpuscular Volume 59.6 fL (81-99); Mean Platelet Vol. 10.2 fl (6.2-12.0); Monocyte# 0.68 X10^3/uL; Monocyte% 8.4 % (0-10); NRBC Flagged by Analyzer 0 % (0-5); Neutrophil # 4.83 X10^3/uL (2.7-7.7); Neutrophil % 59.5 % (47-70); POSITIVE MORPHOLOGY YES; Platelet Count 326 K/mm3 (150-450); RBC Distribution Width CV 21.8 % (11.6-14.6); RBC Distribution Width SD 44.8 fl (35.1-43.9); Red Blood Count 3.84 M/mm3 (4.2-5.4); White Blood Count 8.1 K/mm3 (4.4-11.0)
[2024-01-01 13:44] LABS: Anion Gap 3 (5-15); BUN 19 mg/dL (7-18); BUN/Creat Ratio 28.8 RATIO (10-20); Calcium,Total 9.3 mg/dL (8.5-10.1); Chloride 106 mmol/L (98-107); Creatinine, Serum 0.66 mg/dL (0.55-1.02); Differential Indicated SCAN CRITERIA MET; EST Glomerular Filtration Rate 94 mL/min (>60); Est Glom Filt Rate - Afr Amer 114 mL/min (>60); Glucose 133 mg/dL (74-106); Potassium 3.8 mmol/L (3.5-5.1); Sodium Level 139 mmol/L (136-145)
[2024-01-01 13:53] LABS: Squamous Epithelial Cells - UA 0 SEEN /hpf (5-10)
[2024-01-01 14:42] LABS: Anisocytosis 2+
[2024-01-01 14:51] LABS: Color, Urine Yellow (Yellow); Glucose, Dipstick Normal (Normal); Ketone-Dipstick Negative (Negative); Leukocyte Esterase-Dipstick 25 /ul (Negative); Nitrite-Dipstick Positive (Negative); Occult Blood-Urine Negative /ul (Negative); Protein-Dipstick 15 mg/dl (Negative); Urine Clarity Sl. Cloudy (Clear); Urine Urobilinogen Normal (Normal)
[2024-01-01 14:59] LABS: Urine Bilirubin Dipstick 1 mg/dL (Negative)
[2024-01-01 15:46] LABS: Bacteria 4+ /hpf (None Seen); Mucous, Urine 1+ /hpf (<or=2+); Red Blood Cells-Urine 0-5 SEEN /hpf (0-5); Renal Epithelial Cells 0-5 SEEN /hpf (0-5); White Blood Cells 5-10 SEEN /hpf (0-5)
[2024-01-01] MEDS: Ceftriaxone 1 GM/50 ML BAG IV (17:07)
[2024-01-01 17:43] LABS: Ferritin 3 ng/mL (8-252); Iron 15 ug/dL (50-170); Iron Binding Capacity,Total 492 ug/dL (250-450)
[2024-01-01] MEDS: Azithromycin 500 MG in Dextrose 5%-Water (250mL Bag) 250 ML 250 MG IV (17:44)
[2024-01-02] MEDS: Baclofen 10 MG Tablet 20 MG PO ×4 (00:10→20:54)
[2024-01-02] MEDS: Sodium Ferric Gluconat 250 MG in 0.9% Normal Saline 250 ML 135 MG IV (00:11)
[2024-01-02] MEDS: levETIRAcetam 500 MG Tablet PO (00:25)
[2024-01-02] MEDS: Ensure Plus High Protein 120 ML LIQUID PO ×2 (00:27→10:49)
[2024-01-02 01:00] VITALS: BP 159/70; PULSE 94; RESP 15; TEMP 36.8; O2SAT 95
[2024-01-02 03:45] VITALS: BP 128/58; PULSE 73; RESP 15; TEMP 36.9; O2SAT 93
[2024-01-02 05:53] LABS: Absolute Lymphocyte Count 1.84 X10^3/uL (0.83-4.51); Absolute Neutrophil Count 3.8 X10^3/uL (2.0-7.7); Basophil# 0.06 X10^3/uL; Basophil% 0.9 % (0-1); Hematocrit 25.3 % (37-47); Hemoglobin 7.4 g/dL (12.0-15.0); Lymphocyte # 1.84 X10^3/ul (0.83-4.51); Lymphocyte % 27.9 % (19-41); Mean Corp Hgb Conc 29.2 g/dL (32-36); Mean Corpuscular Hgb 19.2 pg (27.0-32.0); Mean Corpuscular Volume 65.5 fL (81-99); Mean Platelet Vol. 9.7 fl (6.2-12.0); Monocyte# 0.74 X10^3/uL; Monocyte% 11.2 % (0-10); NRBC Flagged by Analyzer 0 % (0-5); Neutrophil # 3.75 X10^3/uL (2.7-7.7); Neutrophil % 56.8 % (47-70); POSITIVE MORPHOLOGY YES; Platelet Count 247 K/mm3 (150-450); RBC Distribution Width CV 27.4 % (11.6-14.6); RBC Distribution Width SD 61.4 fl (35.1-43.9); Red Blood Count 3.86 M/mm3 (4.2-5.4); White Blood Count 6.6 K/mm3 (4.4-11.0)
[2024-01-02 05:55] LABS: Differential Indicated SCAN CRITERIA MET
[2024-01-02 06:21] LABS: Anisocytosis 3+; Differential Comment SCANNED; Hypochromasia 2+; Ovalocyte 2+; Platelet Estimate ADEQUATE (ADEQ); Polychromasia 1+; Stomatocyte 1+
[2024-01-02 06:31] LABS: ALB/GLOB Ratio 0.9 RATIO (0.9-2.4); AST(SGOT) 15 U/L (15-37); Alanine Aminotransfer ALT/SGPT 13 U/L (13-56); Albumin, Serum 2.7 g/dL (3.2-5.0); Alkaline Phosphatase 70 U/L (45-117); Anion Gap 3 (5-15); BUN 12 mg/dL (7-18); BUN/Creat Ratio 23.9 RATIO (10-20); Calcium,Total 8.4 mg/dL (8.5-10.1); Chloride 108 mmol/L (98-107); EST Glomerular Filtration Rate 129 mL/min (>60); Est Glom Filt Rate - Afr Amer 156 mL/min (>60); Estimated Creatinine Clearance 68.05 ml/min; Glucose 92 mg/dL (74-106); Magnesium 1.9 mg/dL (1.6-2.6); Phosphorus 3.1 mg/dL (2.5-4.9); Potassium 3.4 mmol/L (3.5-5.1); Protein, Total 5.7 g/dL (6.4-8.2); Sodium Level 139 mmol/L (136-145)
[2024-01-02] MEDS: Tolterodine Tartrate 2 MG CAP.SA PO (09:19)
[2024-01-02] MEDS: Cholecalciferol (VIT D3) 25 MCG TABLET (1,000 UNITS) 50 MCG PO (09:19)
[2024-01-02] MEDS: levETIRAcetam Oral Solution 500 MG/5 ML PO ×2 (09:19→21:00)
[2024-01-02] MEDS: Sertraline 50 MG Tablet PO (09:19)
[2024-01-02] MEDS: Calcium Carb/Vitamin D 1 TABLET Tablet PO (09:19)
[2024-01-02] MEDS: Ceftriaxone 1 GM/50 ML BAG IV (09:20)
[2024-01-02 10:00] VITALS: BP 127/106; PULSE 81; RESP 16; TEMP 36.9; O2SAT 96
[2024-01-02] MEDS: Pantoprazole Sodium 40 MG in 0.9% Normal Saline (100mL MB+) 100 ML 330 MG IV ×2 (10:49→20:54)
[2024-01-02 15:17] VITALS: BP 118/53; PULSE 88; RESP 16; TEMP 36.2; O2SAT 93
[2024-01-02 20:10] LABS: Hematocrit 26.1 % (37-47); Hemoglobin 7.7 g/dL (12.0-15.0)
[2024-01-02 21:18] VITALS: BP 152/75; PULSE 86; RESP 16; TEMP 37.2; O2SAT 97
[2024-01-03 03:20] VITALS: BP 124/55; PULSE 62; RESP 16; TEMP 37.1; O2SAT 95
[2024-01-03 04:40] LABS: Absolute Lymphocyte Count 2.26 X10^3/uL (0.83-4.51); Absolute Neutrophil Count 3.5 X10^3/uL (2.0-7.7); Basophil# 0.08 X10^3/uL; Basophil% 1.2 % (0-1); Eosinophil# 0.32 X10^3/uL; Eosinophils% 4.7 % (0-5); Hemoglobin 7.4 g/dL (12.0-15.0); Lymphocyte # 2.26 X10^3/ul (0.83-4.51); Lymphocyte % 32.9 % (19-41); Mean Corp Hgb Conc 28.5 g/dL (32-36); Mean Corpuscular Hgb 18.9 pg (27.0-32.0); Mean Corpuscular Volume 66.3 fL (81-99); Mean Platelet Vol. 10.1 fl (6.2-12.0); Monocyte# 0.71 X10^3/uL; Monocyte% 10.3 % (0-10); NRBC Flagged by Analyzer 0 % (0-5); Neutrophil # 3.48 X10^3/uL (2.7-7.7); Neutrophil % 50.6 % (47-70); POSITIVE MORPHOLOGY YES; Platelet Count 255 K/mm3 (150-450); RBC Distribution Width CV 28.4 % (11.6-14.6); RBC Distribution Width SD 63.7 fl (35.1-43.9); Red Blood Count 3.92 M/mm3 (4.2-5.4); White Blood Count 6.9 K/mm3 (4.4-11.0)
[2024-01-03 04:56] LABS: Anion Gap 5 (5-15); BUN 18 mg/dL (7-18); BUN/Creat Ratio 37.8 RATIO (10-20); Calcium,Total 8.5 mg/dL (8.5-10.1); Chloride 108 mmol/L (98-107); Creatinine, Serum 0.48 mg/dL (0.55-1.02); EST Glomerular Filtration Rate 137 mL/min (>60); Est Glom Filt Rate - Afr Amer 166 mL/min (>60); Estimated Creatinine Clearance 68.05 ml/min; Glucose 93 mg/dL (74-106); Potassium 3.5 mmol/L (3.5-5.1); Sodium Level 139 mmol/L (136-145)
[2024-01-03 05:28] LABS: Differential Indicated SCAN CRITERIA MET
[2024-01-03 05:33] LABS: Anisocytosis 2+; Platelet Estimate ADEQUATE (ADEQ); Red Cell Morphology N CHROM NORMAL (NORM C&C)
[2024-01-03 05:34] LABS: Ovalocyte RARE
[2024-01-03] MEDS: Baclofen 10 MG Tablet 20 MG PO (06:00)
[2024-01-03 09:15] VITALS: BP 132/62; PULSE 76; RESP 18; TEMP 36.4; O2SAT 99
[2024-01-03 09:22] VITALS: RESP 18
[2024-01-03] MEDS: Pantoprazole Sodium 40 MG in 0.9% Normal Saline (100mL MB+) 100 ML 330 MG IV ×2 (09:46→21:41)
[2024-01-03] MEDS: Cholecalciferol (VIT D3) 25 MCG TABLET (1,000 UNITS) 50 MCG PO (09:49)
[2024-01-03] MEDS: Tolterodine Tartrate 2 MG CAP.SA PO (09:49)
[2024-01-03] MEDS: Calcium Carb/Vitamin D 1 TABLET Tablet PO (09:49)
[2024-01-03] MEDS: Sertraline 50 MG Tablet PO (09:50)
[2024-01-03] MEDS: levETIRAcetam Oral Solution 500 MG/5 ML PO ×2 (10:01→21:40)
[2024-01-03] MEDS: Ceftriaxone 1 GM/50 ML BAG IV (10:07)
[2024-01-03] MEDS: Sodium Ferric Gluconat/Sucrose 250 MG in 0.9% Normal Saline (250mL Bag) 250 ML 135 MG IV (13:42)
[2024-01-03 14:00] VITALS: BP 149/59; PULSE 75; RESP 18; TEMP 36.4; O2SAT 93
[2024-01-03] MEDS: guaiFENesin 10 ML UDC (200MG/10ML) PO (15:07)
[2024-01-03] MEDS: Baclofen 10 MG Tablet PO ×2 (15:07→21:41)
[2024-01-03] MEDS: KCL 40mEq in 0.9% NS 40 MEQ/1,000 ML IV.SOLN 75 MEQ IV (15:15)
[2024-01-03] MEDS: 0.9% Saline Lock 10 ML Syringe IV (15:15)
[2024-01-03] MEDS: Bisacodyl 5 MG Tablet 20 MG PO (15:25)
[2024-01-03] MEDS: Polyethylene Glycol 3350 BOWEL PREP PO (17:42)
[2024-01-03 20:00] VITALS: BP 154/81; PULSE 79; RESP 18; TEMP 36.7; O2SAT 95
[2024-01-04] VITALS (15 sets, daily range): BP systolic 126–158; BP diastolic 56–128; PULSE 64–88; RESP 16–18; TEMP 36.1–37.7; O2SAT 85–100; BMI 33.6
[2024-01-04 05:44] LABS: Absolute Lymphocyte Count 1.58 X10^3/uL (0.83-4.51); Absolute Neutrophil Count 5.5 X10^3/uL (2.0-7.7); Basophil# 0.08 X10^3/uL; Eosinophil# 0.44 X10^3/uL; Eosinophils% 5.3 % (0-5); Hematocrit 28.2 % (37-47); Hemoglobin 8.2 g/dL (12.0-15.0); Lymphocyte # 1.58 X10^3/ul (0.83-4.51); Lymphocyte % 19.1 % (19-41); Mean Corp Hgb Conc 29.1 g/dL (32-36); Mean Corpuscular Hgb 19.3 pg (27.0-32.0); Mean Corpuscular Volume 66.4 fL (81-99); Mean Platelet Vol. 9.7 fl (6.2-12.0); Monocyte# 0.66 X10^3/uL; NRBC Flagged by Analyzer 0 % (0-5); Neutrophil # 5.46 X10^3/uL (2.7-7.7); Neutrophil % 65.8 % (47-70); POSITIVE MORPHOLOGY YES; Platelet Count 265 K/mm3 (150-450); RBC Distribution Width SD 64.1 fl (35.1-43.9); Red Blood Count 4.25 M/mm3 (4.2-5.4); White Blood Count 8.3 K/mm3 (4.4-11.0)
[2024-01-04 06:03] LABS: Anion Gap 5 (5-15); BUN 8 mg/dL (7-18); BUN/Creat Ratio 18.4 RATIO (10-20); Calcium,Total 8.5 mg/dL (8.5-10.1); Chloride 109 mmol/L (98-107); Creatinine, Serum 0.43 mg/dL (0.55-1.02); EST Glomerular Filtration Rate 152 mL/min (>60); Est Glom Filt Rate - Afr Amer 184 mL/min (>60); Estimated Creatinine Clearance 68.05 ml/min; Glucose 92 mg/dL (74-106); Potassium 3.8 mmol/L (3.5-5.1); Sodium Level 140 mmol/L (136-145)
[2024-01-04 06:09] LABS: Differential Indicated SCAN CRITERIA MET
[2024-01-04 06:41] LABS: Hypochromasia 2+; Microcytosis 2+
[2024-01-04 06:42] LABS: Anisocytosis 2+; Ovalocyte RARE
[2024-01-04] MEDS: Pantoprazole Sodium 40 MG in 0.9% Normal Saline (100mL MB+) 100 ML 330 MG IV ×2 (12:14→22:21)
[2024-01-04] MEDS: Calcium Carb/Vitamin D 1 TABLET Tablet PO (18:26)
[2024-01-04] MEDS: Cholecalciferol (VIT D3) 25 MCG TABLET (1,000 UNITS) 50 MCG PO (18:27)
[2024-01-04] MEDS: guaiFENesin 10 ML UDC (200MG/10ML) PO ×2 (18:28→18:34)
[2024-01-04] MEDS: Baclofen 10 MG Tablet PO ×2 (18:29→22:12)
[2024-01-04] MEDS: Sertraline 50 MG Tablet PO (18:29)
[2024-01-04] MEDS: Ceftriaxone 1 GM/50 ML BAG IV (18:33)
[2024-01-04] MEDS: levETIRAcetam Oral Solution 500 MG/5 ML PO (18:33)
[2024-01-04] MEDS: Electrolyte Solution/Peg's 4000 ML PO (20:32)
[2024-01-04] MEDS: Tolterodine Tartrate 2 MG CAP.SA PO (22:11)
[2024-01-05] VITALS (7 sets, daily range): BP systolic 129–144; BP diastolic 67–80; PULSE 74–80; RESP 16–18; TEMP 36.5–37.1; O2SAT 90–98
[2024-01-05] MEDS: guaiFENesin 10 ML UDC (200MG/10ML) PO ×5 (00:06→22:54)
[2024-01-05] MEDS: Baclofen 10 MG Tablet PO ×3 (06:27→22:50)
[2024-01-05 07:18] LABS: Absolute Lymphocyte Count 1.61 X10^3/uL (0.83-4.51); Absolute Neutrophil Count 7.4 X10^3/uL (2.0-7.7); Eosinophil# 0.26 X10^3/uL; Eosinophils% 2.5 % (0-5); Hematocrit 30.2 % (37-47); Hemoglobin 8.4 g/dL (12.0-15.0); Lymphocyte # 1.61 X10^3/ul (0.83-4.51); Lymphocyte % 15.6 % (19-41); Mean Corp Hgb Conc 27.8 g/dL (32-36); Mean Corpuscular Hgb 19.1 pg (27.0-32.0); Mean Corpuscular Volume 68.8 fL (81-99); Mean Platelet Vol. 10.2 fl (6.2-12.0); Monocyte# 0.86 X10^3/uL; Monocyte% 8.3 % (0-10); NRBC Flagged by Analyzer 0 % (0-5); Neutrophil # 7.44 X10^3/uL (2.7-7.7); Neutrophil % 72.3 % (47-70); POSITIVE MORPHOLOGY YES; Platelet Count 298 K/mm3 (150-450); RBC Distribution Width CV 30.5 % (11.6-14.6); RBC Distribution Width SD 66.7 fl (35.1-43.9); Red Blood Count 4.39 M/mm3 (4.2-5.4); White Blood Count 10.3 K/mm3 (4.4-11.0)
[2024-01-05 07:29] LABS: Differential Indicated SCAN CRITERIA MET
[2024-01-05 07:47] LABS: Anion Gap 7 (5-15); BUN 9 mg/dL (7-18); BUN/Creat Ratio 17.9 RATIO (10-20); Calcium,Total 8.5 mg/dL (8.5-10.1); Chloride 106 mmol/L (98-107); EST Glomerular Filtration Rate 129 mL/min (>60); Est Glom Filt Rate - Afr Amer 156 mL/min (>60); Estimated Creatinine Clearance 66.63 ml/min; Glucose 99 mg/dL (74-106); Potassium 3.6 mmol/L (3.5-5.1); Sodium Level 139 mmol/L (136-145)
[2024-01-05 08:53] LABS: Pathologist Review Reviewed
[2024-01-05 08:55] LABS: Anisocytosis 3+; Differential Comment SCANNED; Platelet Estimate ADEQUATE (ADEQ)
[2024-01-05 08:56] LABS: Basophilic Stippling RARE; Hypochromasia 2+; Macrocytosis 1+; Microcytosis 2+; Ovalocyte 2+; Polychromasia 1+; Target Cells RARE; Tear Drop Cell RARE
[2024-01-05] MEDS: Tolterodine Tartrate 2 MG CAP.SA PO (09:41)
[2024-01-05] MEDS: Calcium Carb/Vitamin D 1 TABLET Tablet PO (09:46)
[2024-01-05] MEDS: levETIRAcetam Oral Solution 500 MG/5 ML PO ×2 (09:46→22:49)
[2024-01-05] MEDS: Sertraline 50 MG Tablet PO (09:46)
[2024-01-05] MEDS: Pantoprazole Sodium 40 MG in 0.9% Normal Saline (100mL MB+) 100 ML 330 MG IV ×2 (09:46→22:19)
[2024-01-05] MEDS: Cholecalciferol (VIT D3) 25 MCG TABLET (1,000 UNITS) 50 MCG PO (09:47)
[2024-01-05] MEDS: Ceftriaxone 1 GM/50 ML BAG IV (12:12)
[2024-01-06] VITALS (13 sets, daily range): BP systolic 113–163; BP diastolic 54–84; PULSE 74–113; RESP 16–20; TEMP 36.4–37.3; O2SAT 93–97; BMI 33.6
[2024-01-06 07:44] LABS: Absolute Lymphocyte Count 1.18 X10^3/uL (0.83-4.51); Absolute Neutrophil Count 6.8 X10^3/uL (2.0-7.7); Basophil# 0.07 X10^3/uL; Basophil% 0.8 % (0-1); Eosinophils% 2.2 % (0-5); Hematocrit 28.6 % (37-47); Hemoglobin 8.3 g/dL (12.0-15.0); Lymphocyte # 1.18 X10^3/ul (0.83-4.51); Lymphocyte % 13.1 % (19-41); Mean Corpuscular Volume 69.1 fL (81-99); Mean Platelet Vol. 10.1 fl (6.2-12.0); Monocyte# 0.66 X10^3/uL; Monocyte% 7.3 % (0-10); NRBC Flagged by Analyzer 0 % (0-5); Neutrophil # 6.84 X10^3/uL (2.7-7.7); POSITIVE MORPHOLOGY YES; Platelet Count 256 K/mm3 (150-450); RBC Distribution Width CV 31.5 % (11.6-14.6); RBC Distribution Width SD 67.2 fl (35.1-43.9); Red Blood Count 4.14 M/mm3 (4.2-5.4)
[2024-01-06 07:51] LABS: Differential Indicated SCAN CRITERIA MET
[2024-01-06 08:39] LABS: Anion Gap 8 (5-15); BUN 11 mg/dL (7-18); BUN/Creat Ratio 22.4 RATIO (10-20); Calcium,Total 8.6 mg/dL (8.5-10.1); Chloride 104 mmol/L (98-107); Creatinine, Serum 0.49 mg/dL (0.55-1.02); EST Glomerular Filtration Rate 132 mL/min (>60); Est Glom Filt Rate - Afr Amer 160 mL/min (>60); Estimated Creatinine Clearance 66.63 ml/min; Glucose 80 mg/dL (74-106); Potassium 3.2 mmol/L (3.5-5.1); Sodium Level 137 mmol/L (136-145)
[2024-01-06 09:16] LABS: Acanthocytes RARE; Anisocytosis 3+; Differential Comment SCANNED; Hypochromasia 2+; Microcytosis 2+; Ovalocyte 2+; Platelet Estimate ADEQUATE (ADEQ); Polychromasia 1+
[2024-01-06] MEDS: Pantoprazole Sodium 40 MG in 0.9% Normal Saline (100mL MB+) 100 ML 330 MG IV ×2 (11:30→22:16)
[2024-01-06] MEDS: Ceftriaxone 1 GM/50 ML BAG IV (13:04)
[2024-01-06] MEDS: levETIRAcetam Oral Solution 500 MG/5 ML PO (22:11)
[2024-01-06] MEDS: guaiFENesin 10 ML UDC (200MG/10ML) PO (22:12)
[2024-01-06] MEDS: Baclofen 10 MG Tablet PO (22:12)
[2024-01-07] MEDS: guaiFENesin 10 ML UDC (200MG/10ML) PO ×3 (02:34→11:02)
[2024-01-07 02:36] VITALS: BP 138/58; PULSE 72; RESP 16; TEMP 36.7; O2SAT 94
[2024-01-07 05:01] LABS: Absolute Lymphocyte Count 1.52 X10^3/uL (0.83-4.51); Absolute Neutrophil Count 3.9 X10^3/uL (2.0-7.7); Basophil# 0.07 X10^3/uL; Basophil% 1.1 % (0-1); Eosinophil# 0.27 X10^3/uL; Eosinophils% 4.2 % (0-5); Hematocrit 28.1 % (37-47); Hemoglobin 8.2 g/dL (12.0-15.0); Lymphocyte # 1.52 X10^3/ul (0.83-4.51); Lymphocyte % 23.9 % (19-41); Mean Corp Hgb Conc 29.2 g/dL (32-36); Mean Corpuscular Hgb 20.3 pg (27.0-32.0); Mean Corpuscular Volume 69.6 fL (81-99); Mean Platelet Vol. 9.8 fl (6.2-12.0); Monocyte# 0.57 X10^3/uL; NRBC Flagged by Analyzer 0 % (0-5); Neutrophil % 61.3 % (47-70); POSITIVE MORPHOLOGY YES; Platelet Count 254 K/mm3 (150-450); RBC Distribution Width CV 31.8 % (11.6-14.6); RBC Distribution Width SD 70.2 fl (35.1-43.9); Red Blood Count 4.04 M/mm3 (4.2-5.4); White Blood Count 6.4 K/mm3 (4.4-11.0)
[2024-01-07 05:03] LABS: Differential Indicated SCAN CRITERIA MET
[2024-01-07 05:28] LABS: Anion Gap 7 (5-15); BUN 8 mg/dL (7-18); BUN/Creat Ratio 17.3 RATIO (10-20); Calcium,Total 8.4 mg/dL (8.5-10.1); Chloride 103 mmol/L (98-107); Creatinine, Serum 0.46 mg/dL (0.55-1.02); EST Glomerular Filtration Rate 142 mL/min (>60); Est Glom Filt Rate - Afr Amer 172 mL/min (>60); Estimated Creatinine Clearance 66.63 ml/min; Glucose 77 mg/dL (74-106); Potassium 3.1 mmol/L (3.5-5.1); Sodium Level 138 mmol/L (136-145)
[2024-01-07 05:46] LABS: Anisocytosis 4+; Basophilic Stippling RARE; Differential Comment SCANNED; Hypochromasia 3+; Macrocytosis 2+; Microcytosis 2+; Platelet Estimate ADEQUATE (ADEQ); Polychromasia 2+; Spherocyte 1+
[2024-01-07 05:47] LABS: Other RBC Morphology 3+; Ovalocyte 1+
[2024-01-07] MEDS: Baclofen 10 MG Tablet PO (06:13)
[2024-01-07 08:16] VITALS: O2SAT 96
[2024-01-07 10:00] VITALS: BP 110/52; PULSE 81; RESP 16; RESP 18; TEMP 36.6; O2SAT 95
[2024-01-07] MEDS: Cholecalciferol (VIT D3) 25 MCG TABLET (1,000 UNITS) 50 MCG PO (10:51)
[2024-01-07] MEDS: Calcium Carb/Vitamin D 1 TABLET Tablet PO (10:51)
[2024-01-07] MEDS: Tolterodine Tartrate 2 MG CAP.SA PO (10:52)
[2024-01-07] MEDS: Sertraline 50 MG Tablet PO (10:52)
[2024-01-07] MEDS: levETIRAcetam Oral Solution 500 MG/5 ML PO (10:54)
[2024-01-07] MEDS: Pantoprazole Sodium 40 MG in 0.9% Normal Saline (100mL MB+) 100 ML 330 MG IV (10:54)
[2024-01-07] MEDS: Ceftriaxone 1 GM/50 ML BAG IV (11:03)
[2024-01-07] MEDS: Potassium Chloride Oral Tablet 20 MEQ 40 MEQ PO (11:08)
[2024-01-07 13:02] VITALS: BP 122/60; PULSE 7; RESP 18; TEMP 36.9; O2SAT 98
[2024-01-08 13:43] LABS: Pathologist Review Reviewed
== END 2024-01-07 13:21 | disposition intermediate care facility (04) | DRG 812 ==
LOC: ED 17:32 → MS3 18:08
PROVIDERS: Anesthesiology; Internal Medicine; Internal Medicine Gastroenterology; Physician Assistant; Admitting Provider Internal Medicine; Emergency Provider Emergency Medicine; PCP Internal Medicine; Visit Provider Student in an Organized Health Care Education/Training Program
PROC: 0DJ08ZZ Inspection of Upper Intestinal Tract, Via Natural or Artificial Opening Endoscopic (ICD-10-PCS; CPT 43235; principal; 2024-01-04 14:10)
PROC: 0DJD8ZZ Inspection of Lower Intestinal Tract, Via Natural or Artificial Opening Endoscopic (ICD-10-PCS; CPT 45378; principal; 2024-01-06 16:40)
DX: D50.9 Iron deficiency anemia, unspecified (principal); N39.0 Urinary tract infection, site not specified; B96.20 Unspecified Escherichia coli [E. coli] as the cause of diseases classified elsewhere; G80.9 Cerebral palsy, unspecified; G40.909 Epilepsy, unspecified, not intractable, without status epilepticus; J42 Unspecified chronic bronchitis; I10 Essential (primary) hypertension; F32.A Depression, unspecified; J40 Bronchitis, not specified as acute or chronic; L30.9 Dermatitis, unspecified; K21.9 Gastro-esophageal reflux disease without esophagitis; K44.9 Diaphragmatic hernia without obstruction or gangrene; K57.30 Diverticulosis of large intestine without perforation or abscess without bleeding; M81.0 Age-related osteoporosis without current pathological fracture; N31.9 Neuromuscular dysfunction of bladder, unspecified; Z79.51 Long term (current) use of inhaled steroids; Z79.899 Other long term (current) drug therapy
CPT/HCPCS: 36415; 71046; 71250; 74018; 80048; 80053; 81001; 82274; 82728; 83540; 83550; 83735; 84100; 84443; 85014; 85018; 85025; 85730; 86850; 86900; 86901; 86920; 87077; 87086; 87088; 87186; 87631; 92526; 92610; 94668; 97162; 97166; 97530; 97535; 97802; 99285; J7040; J7050; P9016; P9612; A4216; J2405; J2916

== ENCOUNTER → 2024-01-01 | Outpatient (CLI) | payer MEDICARE, MEDICAID, SELFPAY | END | disposition home or self-care (01) | PROVIDERS: PCP Internal Medicine; Referring Provider Physician Assistant Surgical; Visit Provider Physician Assistant Surgical | DX: R05.9 Cough, unspecified (principal) | CPT/HCPCS: 71046 ==

== ENCOUNTER → 2024-02-24 | Outpatient (CLI) | payer MEDICARE, MEDICAID, SELFPAY ==
[2024-02-24 11:29] LABS: Absolute Lymphocyte Count 1.42 X10^3/uL (0.83-4.51); Absolute Neutrophil Count 3.3 X10^3/uL (2.0-7.7); Basophil# 0.05 X10^3/uL; Basophil% 0.9 % (0-1); Eosinophil# 0.15 X10^3/uL; Eosinophils% 2.8 % (0-5); Hematocrit 37.6 % (37-47); Hemoglobin 11.8 g/dL (12.0-15.0); Lymphocyte # 1.42 X10^3/ul (0.83-4.51); Lymphocyte % 26.5 % (19-41); Mean Corp Hgb Conc 31.4 g/dL (32-36); Mean Corpuscular Hgb 25.1 pg (27.0-32.0); Monocyte# 0.39 X10^3/uL; Monocyte% 7.3 % (0-10); NRBC Flagged by Analyzer 0 % (0-5); Neutrophil # 3.34 X10^3/uL (2.7-7.7); Neutrophil % 62.3 % (47-70); POSITIVE MORPHOLOGY YES; Platelet Count 236 K/mm3 (150-450); White Blood Count 5.4 K/mm3 (4.4-11.0)
[2024-02-24 11:48] LABS: Iron 27 ug/dL (50-170); Iron Binding Capacity,Total 382 ug/dL (250-450)
[2024-02-24 13:31] LABS: Differential Indicated SCAN CRITERIA MET
[2024-02-24 13:45] LABS: Differential Comment SCANNED
== END | disposition home or self-care (01) ==
LOC: LAB 11:01
PROVIDERS: PCP Internal Medicine; Referring Provider Nurse Practitioner Acute Care; Visit Provider Nurse Practitioner Acute Care
DX: D64.9 Anemia, unspecified (principal); R13.10 Dysphagia, unspecified; T17.308A Unspecified foreign body in larynx causing other injury, initial encounter; X58.XXXA Exposure to other specified factors, initial encounter
CPT/HCPCS: 36415; 83540; 83550; 85025

== ENCOUNTER → 2024-03-18 | Outpatient (CLI) | payer MEDICARE, MEDICAID, SELFPAY ==
--- NOTE | 2024-03-18 13:43 | ST.MBS ---
Modified Barium Swallow Patient Information Study Date: 03/18/24 Study Time: 12:50 Direct Billable Minutes: 97 Total Minutes procedure & reportin Diagnosis: Dysphagia R13.10 Referring Physician: Verna Easton Reason for Referral: Assess swallow function, aspiration risk, and determine LRD textures and strategies to decrease risk for aspiration. Medical History: PMH: Cerebral palsy, Seizure disorder, GERD, COVID-19, Choking, Anemia, PNA, Hiatal hernia - See EMR for full PMH. Pt was [facility] two caregivers [facility]. They reported she is on a regular textured, but chopped up, diet and thin liquids. Per NORA w/ Verna Easton 02/24/2024, she has a difficult time eating because she will choke on everything she eats and drinks. The patient was referred for this MBSS to further assess concerns for swallow dysfunction. Hx of MBSS in 2019 recommending soft solids / thin liquids. Current Diet Ordered: Regular, chopped textures / Thin liquids Dentition: Natural Teeth and Missing Teeth Respiratory Status: Oxygenating on Room Air Penetration-Aspiration Scale Penetration-Aspiration Scale: OBJECTIVE ASSESSMENT OF SWALLOW FUNCTION (QUANTITATIVE ? PER TRIAL): PENETRATION / ASPIRATION SCALE (CUBA): 1 = does not enter airway 2 = enters airway/above vocal folds/ejected 3 = enters airway/above vocal folds/not ejected 4 = enters airway/contacts vocal folds/ejected 5 = enters airway/contacts vocal folds/not ejected 6 = enters airway/below vocal folds/ejected 7 = enters airway/below vocal folds/not ejected despite effort 8 = enters airway/below vocal folds/no effort VIDEOFLOROSCOPIC SCALE SCORE (CUBA): Grade I = aspiration of material that has penetrated into the laryngeal vestibule, intact cough reflex Grade II = aspiration < 10 % of the bolus, intact cough reflex Grade III = aspiration of < 10 % of the bolus, reduced cough reflex or aspiration of > 10 % of the bolus, intact cough reflex Grade IV = aspiration of > 10 % of the bolus, reduced cough reflex Penetration-Aspiration Scale Score Thin Liquid via teaspoon: Result: 5= enters airways/contacts vocal folds/not ejected Thin Liquid via teaspoon Trial 2: Result: 2= enter airway/above vocal folds/ejected Thin Liquid via single sip: straw: Result: 1= does not enter airway Thin Liquid via sequential sips:straw: Result: 1= does not enter airway Mcgraw Thick Liquid via single sip: straw: Result: 1= does not enter airway Pudding via teaspoon: Result: 1= does not enter airway 1/2 Cookie: Result: 1= does not enter airway Thin Liquid via sequential sips:straw Trial 2: Result: 7= enters airways/below vocal folds/not ejected despite effort Comment: delayed reflexive cough Thin Liquid via single sip: straw Trial 2: Result: 5= enters airways/contacts vocal folds/not ejected Comment: Cued cough to attempt clearing contrast from laryngeal vestibule/vocal folds Thin Liquid via single sip: straw Trial 3: Result: 1= does not enter airway Mcgraw Thick Liquid via single sip: straw Trial 2: Result: 1= does not enter airway Thin Liquid via single sip: straw Trial 4: Result: 8= enters airway/below vocal folds/no effort Oral Phase Labial Seal: Escape beyond interlabial space; no extension beyond alyson border Tongue Control During Bolus Hold: Posterior escape of less than half of bolus Bolus Preparation/Mastication: Slow prolonged chewing/mashing with complete recollection Bolus Transport/Lingual Motion: Repetitive/disorganized tongue motion Oral Residue: Residue collection on oral structures Pharyngeal Phase Initiation of Pharyngeal Swallow: Bolus head in pyriforms Soft Palate Elevation: Trace column of contrast/air between soft palate and pharyngeal wall Laryngeal Elevation: Partial superior movement thyroid cart/partial apprx aryt-epig petiole Anterior Hyoid Excursion: Partial anterior movement Epiglottic Movement: Complete inversion Laryngeal Vestibule Closure at Height of Swallow: Incomplete; narrow column of air/contrast in laryngeal vestibule Pharyngeal Stripping Wave: Present - complete Tongue Base Retraction: Trace column of contrast between tongue base & post. pharyngeal wall Pharyngeal Residue: Trace residue within or on pharyngeal structures Diagnosis/Impression Diagnosis: Moderate oropharyngeal dysphagia R13.12 Impression: Due to pt's body habitus, a a/c technician assisted in positioning pt's head upright enough to capture imaging of the laryngeal vestibule, vocal folds, and upper portion of trachea during the swallow; otherwise, imaging could not have identified aspiration. Of note, caregivers informed the [employer] that the patient does not have her head neutral/upright for meals. For this reason, [employer] would recommend additional assessment of swallow function via Fiberoptic Endoscopic Evaluation of Swallowing (FEES) to evaluate the patient's swallow w/ her chin tucked. For all trials above, the [employer] cannot definitively rule out aspiration due to pt's body habitus. The oral phase is marked by... -Decreased bolus control w/ premature posterior loss of <1/2 of thin liquid bolus to the pyriforms during some trials. -Disorganized tongue motion for A-P transport. -Slow, but complete mastication of 1/2 cookie. The pharyngeal phase is marked by... -Mildly delayed swallow onset w/ some liquid trials. -Decreased airway closure due to decreased anterior hyoid excursion and laryngeal elevation. -SILENT aspiration of thin liquids via single sip by straw. Aspiration of thin liquids via sequential straw w/ reflexive cough. Cued cough somewhat cleared penetrated contrast from laryngeal vestibule during the study. -Unable to score UES opening/duration d/t pt's body habitus. The esophageal phase was unable to be assessed due to pt's posture and her chair impacting view of esophagus under fluoroscopy. Will recommend GERD precautions as the patient has known hx of GERD and hiatal hernia. Recommendations Diet: Mechanical Soft Textures (Soft and Bite Size Textures - IDDSI Level 6) and Mcgraw-thick Liquids (Mildly Thick Liquids - IDDSI Level 2) Compensatory Strategies: Small Bites, Small Sips (One at a time), Slow Rate, Alternate bites/solids and sips/liquids, Sitting upright and Remain sitting upright for 30 minutes after PO intake Supervision: Assist as needed (Supervision at meals and feeding assistance as needed) Recommend Repeat Modified Barium Swallow: No Comment: Due to pt's body habitus, this study was limited and the patient's swallowing could not be captured w/ the head posture that the patient typically uses when eating and drinking. Per caregivers, she typically has her head chin down, not head neutral. This [employer] recommends the patient participate in a Fiberoptic Endoscopic Evaluation of Swallowing (FEES) to better capture aspiration risk w/ pt's chin down. Need for Skilled Speech Therapy Services: Yes Comment: 1.Outpatient FEES 2. ST [facility] jail w/ POC to included the following... -Train the patient and staff in use of strategies to decrease risk for aspiration and reflux aspiration (known hiatal hernia and hx of GERD). -Ongoing assessment of diet tolerance of recommended textures. Will recommend implementation of bolus control straw to control bolus size/rate to decrease aspiration risk. -Train the patient in oropharyngeal exercise program to improve bolus control and airway closure (lingual resistance and ROM, effortful swallows). Education Completed: 1. Described result of evaluation., 2. Pt understands evaluation & agrees with goals and treatment plan., 4. Family/caregivers understand evaluation & agree w/ goals & tx plan. and 7. Pt requires further education on strategies & risks. Status Active ST Patient: Active Contact Information [facility] Speech Therapy:: Clotilde Gomez M.A. CCC-[employer]? Speech-Language Pathologist?? [facility] [address] [place] [address]? [email or web address]?? [phone]
== END | disposition home or self-care (01) ==
PROVIDERS: PCP Internal Medicine; Referring Provider Nurse Practitioner Acute Care; Visit Provider Nurse Practitioner Acute Care
DX: R13.10 Dysphagia, unspecified (principal); T17.308A Unspecified foreign body in larynx causing other injury, initial encounter; D64.9 Anemia, unspecified; X58.XXXA Exposure to other specified factors, initial encounter
CPT/HCPCS: 74230; 92611